=== PATIENT | female | born 1970 | race Caucasian/White ===

== ENCOUNTER 2017-03-08 15:46 | Observation (INO) | payer BC ==
[2017-03-08 15:46] VITALS: BMI 40.3
[2017-03-08] MEDS ORDERED: Sodium Chloride 0.9% 1,000 ML IV STA (16:37)
[2017-03-08 16:38] VITALS: TEMP 99.4
[2017-03-08] MEDS ORDERED: Morphine 2 mg/ml ISec IVP STA (16:39)
--- NOTE | 2017-03-08 16:45 | ED PDOC ---
Arrival/HPI - General Chief Complaint: GI Problem Time Seen by Provider: 03/08/17 16:02 Historian: Patient - History of Present Illness Narrative History of Present Illness (Text): 03/08/17 16:25 A 46 year old female, whose past medical history includes diabetes and hypertension, presents to the emergency department complaining of diarrhea, back pain and abdominal pain for the past 2 weeks. Patient also reports an episode of vomiting this morning and a fever of 101 last week. Patient denies any chest pain, runny nose, hematuria, dysuria or any other complaints at this time. Patient LMP was last week. Time/Duration: Other (2 weeks) Symptom Onset: Sudden Symptom Course: Unchanged Activities at Onset: Rest Context: Home Past Medical History - Provider Review Nursing Documentation Reviewed: Yes - Infectious Disease Hx of Infectious Diseases: None - Tetanus Immunization Tetanus Immunization: Unknown - Cardiac Hx Hypertension: Yes - Pulmonary Hx Respiratory Disorders: No Hx Tuberculosis: No - Neurological Hx Dizziness: Yes Hx Transient Ischemic Attacks (TIA): Yes - HEENT Hx HEENT Disorder: No Hx Macular Degeneration: No - Renal Hx Kidney Stones: Yes - Endocrine/Metabolic Hx Diabetes Mellitus Type 2: Yes - Hematological/Oncological Hx Blood Disorders: No Hx Unexplained Bleeding: No - Integumentary Hx Dermatological Disorder: No Hx Squamous Cell Carcinoma: No - Musculoskeletal/Rheumatological Hx Musculoskeletal Disorders: No Hx Falls: No Hx Unsteady Gait: No - Gastrointestinal Hx Gastrointestinal Disorders: No - Genitourinary/Gynecological Hx Genitourinary Disorders: No Hx Urinary Tract Infection: No - Psychiatric Hx Psychophysiologic Disorder: No Hx Sexual Abuse: No Hx Substance Use: No - Past Surgical History Past Surgical History: Unable to Obtain - Surgical History Hx Valve Replacement: No - Anesthesia Hx Anesthesia: Yes - Suicidal Assessment Feels Threatened In Home Enviroment: No Family/Social History - Physician Review Nursing Documentation Reviewed: Yes Family/Social History: No Known Family HX Smoking Status: Never Smoked Hx Alcohol Use: No Hx Substance Use: No Hx Substance Use Treatment: No Allergies/Home Meds Allergies/Adverse Reactions: Allergies No Known Allergies Allergy (Verified 03/08/17 15:56) Home Medications: Home Meds Medication Instructions Recorded Confirmed amLODIPine [Norvasc] 10 mg PO DAILY 06/02/15 03/08/17 MetFORMIN [glucoPHAGE] 500 mg PO BID 10/05/15 06/14/17 Review of Systems - Physician Review All systems were reviewed & negative as marked: Yes - Review of Systems Constitutional: Fevers ENT: absent: Rhinorrhea Cardiovascular: absent: Chest Pain Gastrointestinal: Abdominal Pain, Diarrhea, Vomiting Genitourinary Female: absent: Dysuria, Hematuria Musculoskeletal: Back Pain Physical Exam Vital Signs Reviewed: Yes Vital Signs Temp Pulse Resp BP Pulse Ox 03/08/17 21:05 81 14 152/76 H 98 03/08/17 19:20 78 16 144/80 99 03/08/17 17:18 89 18 152/79 H 98 03/08/17 16:30 99.4 F 97 H 18 155/88 H 98 03/08/17 15:57 99.8 F H 97 H 17 155/84 H 98 Temperature: Afebrile Blood Pressure: Hypertensive Pulse: Regular Respiratory Rate: Normal Appearance: Positive for: Well-Appearing, Non-Toxic, Comfortable Pain Distress: None Mental Status: Positive for: Alert and Oriented X 3 - Systems Exam Head: Present: Atraumatic, Normocephalic Pupils: Present: PERRL Extroacular Muscles: Present: EOMI Conjunctiva: Present: Normal Mouth: Present: Moist Mucous Membranes Neck: Present: Normal Range of Motion Respiratory/Chest: Present: Clear to Auscultation, Good Air Exchange. No: Respiratory Distress, Accessory Muscle Use Cardiovascular: Present: Regular Rate and Rhythm, Normal S1, S2. No: Murmurs Abdomen: Present: Tenderness (to palpation bilateral lower quadrants), Normal Bowel Sounds. No: Distention, Peritoneal Signs Back: Present: Normal Inspection Upper Extremity: Present: Normal Inspection. No: Cyanosis, Edema Lower Extremity: Present: Normal Inspection. No: Edema Neurological: Present: GCS=15, CN II-XII Intact, Speech Normal Skin: Present: Warm, Dry, Normal Color. No: Rashes Psychiatric: Present: Alert, Oriented x 3, Normal Insight, Normal Concentration Medical Decision Making ED Course and Treatment: 03/08/17 16:42 Impression: A 46 year old female with diarrhea, back pain and abdominal pain. Differential Diagnosis included but are not limited to: colitis vs. gastroenteritis vs. appendicitis vs. diverticulitis vs. urinary source Plan: -- EKG -- CT abd/pelvis -- chest xray -- labs -- Urinalysis -- Pepcid, Zofran, Toradol, IV fluids, Morphine -- Reassess and disposition Prior Visits: Notes and results from previous visits were reviewed. Patient last reported to the emergency department on 09/20/16 for evaluation of right breast abscess. Patient was admitted for UTI, hyperglycemia and breast abscess. Had abscess surgery here at [facility] [place]. Patient discharged on 09/23/16. - Lab Interpretations I have reviewed the lab results: Yes - EKG Interpretation Interpreted by ED Physician: Yes Type: 12 lead EKG - Medication Orders Current Medication Orders: Ceftriaxone Sodium (Rocephin 1 Gram Ivpb) 1 gm in 100 mls @ 200 mls/hr IV ONCE STA PRN Reason: Protocol Stop: 03/08/17 22:35 Discontinued Medications Famotidine (Pepcid) 20 mg IVP STAT STA Stop: 03/08/17 16:39 Last Admin: 03/08/17 16:53 Dose: 20 mg Sodium Chloride (Sodium Chloride 0.9%) 1,000 mls @ 999 mls/hr IV .Q1H1M STA Stop: 03/08/17 17:37 Last Admin: 03/08/17 16:51 Dose: 999 mls/hr Iohexol (Omnipaque 240 (50 Ml)) Confirm Administered Dose 50 ml .ROUTE .STK-MED ONE Stop: 03/08/17 18:41 Iohexol (Omnipaque 350 100 Ml) Confirm Administered Dose 350 mg .ROUTE .STK-MED ONE Stop: 03/08/17 18:41 Ketorolac Tromethamine (Toradol) 30 mg IVP STAT STA Stop: 03/08/17 16:39 Last Admin: 03/08/17 16:52 Dose: 30 mg Re-Assess: [facility] Pain Assessment Document 03/08/17 17:52 KEITH (Rec: 03/08/17 21:06 KEITH [id number]) Pain Reassessment Is this a pain reassessment? Yes Sleep Is patient sleeping during reassessment? No Presence of Pain Presence of Pain Yes Pain Scale Used Pain Scale Used Numeric Description Description Intermittent Intensity of Pain at present 4 Morphine Sulfate (Morphine) 2 mg IVP STAT STA Stop: 03/08/17 16:40 Last Admin: 03/08/17 16:52 Dose: 2 mg Ondansetron HCl (Zofran Inj) 4 mg IVP STAT STA Stop: 03/08/17 16:39 Last Admin: 03/08/17 16:52 Dose: 4 mg ED OBSERVATION Discharge: Yes Date of observation admission: 03/08/17 Time of observation admission: 16:25 - Observation admission statement Patient is being placed in observation because:: abdominal pain, back pain and diarrhea - Goals of Observation Goals of observation are:: to reevaluate and monitor patient symptoms - Progress Note Progress Note: 03/08/17 18:25 Patient is in no acute distress and reports feeling better. 03/08/17 20:20 Patient is resting. EKG: Ordered, reviewed, and independently interpreted the EKG. Rate : 83 BPM Rhythm : NSR Interpretation : Normal interval, normal axis, no ST/T changes Comparison : No previous EKG for comparison. Chest xray: No active disease. 03/08/17 21:35 CT results: IMPRESSION: 1. Facet arthropathy at L5-S1, left greater than right and degenerative changes with suggestion of sacroiliitis of the SI joints. 2. Borderline size of the ascending thoracic aorta measuring 40 mm. 3. Small nonobstructing right renal calculus in the lower pole. 4. Mildly enlarged fibroid uterus with several fibroids noted. 5. Right ovarian cyst measuring 3.4 cm 03/08/17 22:12 Patient's labs show poorly controlled diabetes but no DKA. Chemistry is othewise unremarkable. There is no leukocytosis. Urine suggests UTI. CT results are noted. I have discussed the results and plan with the patient, who expresses understanding. Patient given the opportunity to ask question, all questions were answered and there is agreement with the plan to discharge the patient home with prescription for macrobid for UTI and naprosyn for pain. Patient is stable for discharge. Patient was instructed to follow up with physician/clinic, especially to discuss all findings and results and to return if symptoms persist/worsen or new concerning symptoms arise. - Scribe Statement The provider has reviewed the documentation as recorded by the Morgan Castro Provider Rajendraibe Attestation: All medical record entries made by the Scribjeremiah were at my direction and personally dictated by me. I have reviewed the chart and agree that the record accurately reflects my personal performance of the history, physical exam, medical decision making, and the department course for this patient. I have also personally directed, reviewed, and agree with the discharge instructions and disposition. Disposition/Present on Arrival - Present on Arrival Any Indicators Present on Arrival: Yes History of DVT/PE: No History of Uncontrolled Diabetes: Yes Urinary Catheter: No History of Decub. Ulcer: No History Surgical Site Infection Following: Bariatric Surgery, None - Disposition Have Diagnosis and Disposition been Completed?: Yes Diagnosis: Uncontrolled diabetes mellitus, UTI (urinary tract infection), Uterine fibroid , Sacroiliitis Disposition: HOME/ ROUTINE Disposition Time: 16:02 Patient Plan: Discharge Patient Problems: Current Active Problems Problem Status Onset Sacroiliitis Acute UTI (urinary tract infection) Acute Uncontrolled diabetes mellitus Acute Uterine fibroid Acute Condition: GOOD
[2017-03-08 17:22] LABS: ADD MANUAL DIFF? NO
[2017-03-08 17:27] LABS: URINE BILIRUBIN NEGATIVE (NEGATIVE); URINE BLOOD TRACE-INTACT (NEGATIVE); URINE GLUCOSE (UA) 250 mg/dL (NEGATIVE); URINE KETONE NEGATIVE (NEGATIVE); URINE LEUKOCYTE ESTERASE TRACE Leu/uL (NEGATIVE); URINE PROTEIN TRACE mg/dL (<30 mg/dL); URINE UROBILINOGEN 0.2 E.U./dL (<1 E.U./dL)
[2017-03-08 17:31] LABS: BASO # 0.03 K/mm3 (0.0-2.0); BASO % 0.3 % (0.0-3.0); EOS # 0.1 (0.0-0.7); EOS % 0.8 % (1.5-5.0); GRAN % 68.9 % (50.0-68.0); HEMATOCRIT 34.1 % (36.0-48.0); LYMPH # 2.3 (1.2-3.4); LYMPH % 24.5 % (22.0-35.0); MEAN CELL VOLUME 82.4 fL (80.0-105.0); MONO # 0.5 (0.1-0.6); MONO % 5.5 % (1.0-6.0); PLATELET COUNT 340 10^3/uL (120.0-450.0); RED CELL DISTRIBUTION WIDTH 12.6 % (11.5-14.5); WHITE BLOOD COUNT 9.3 10^3/ul (4.5-11.0)
[2017-03-08 17:32] LABS: URINE APPEARANCE CLEAR (CLEAR); URINE COLOR LIGHT YELLOW (YELLOW)
[2017-03-08 17:51] LABS: INR 0.99 (0.93-1.08); PARTIAL THROMBOPLASTIN TIME 25.8 Seconds (23.7-30.8)
[2017-03-08 18:13] LABS: URINE WBC 15 - 20 /hpf (0-6)
[2017-03-08 18:14] LABS: URINE BACTERIA LARGE (NEG)
[2017-03-08 18:21] LABS: ALB/GLOB RATIO 0.9 (1.1-1.8); ALKALINE PHOSPHATASE 94 U/L (38-133); ALT/SGPT 25 U/L (7-56); AMYLASE 59 U/L (35-125); AST/SGOT 42 U/L (15-39); BILIRUBIN,TOTAL 0.4 mg/dL (0.2-1.3); BLOOD UREA NITROGEN 11 mg/dL (7-21); CALCIUM 9.1 mg/dL (8.4-10.5); CARBON DIOXIDE 29 mmol/L (21-33); CHLORIDE 101 mmol/L (98-107); GFR AFRICAN-AMERICAN > 60; LIPASE 30 U/L (23-300); POTASSIUM 3.6 mmol/L (3.6-5.0); SODIUM 138 mmol/L (132-148); TOTAL PROTEIN 7.9 g/dL (5.8-8.3)
[2017-03-08 18:26] LABS: GLUCOSE,RANDOM 352 mg/dL (70-110)
[2017-03-08] MEDS ORDERED: Iohexol 240 (50 ml) ONE (18:40)
[2017-03-08] MEDS ORDERED: Iohexol 350 MG/100 ML VIAL ONE (18:40)
[2017-03-08 18:42] LABS: TROPONIN I < 0.01 ng/mL
[2017-03-08 18:48] LABS: VENOUS BLOOD GAS BASE EXCESS 3.6 mmol/L (0.0-2.0); VENOUS BLOOD PH 7.33 (7.32-7.43)
--- NOTE | 2017-03-08 20:47 | CARD ---
APPROVED REPORT EKG Measurement Heart [id number] <Conclusion> Normal sinus rhythm Minimal voltage criteria for LVH, may be normal variant Possible Anterior infarct, age undetermined Abnormal ECG
[2017-03-08 21:06] VITALS: BP 152/76; PULSE 81
[2017-03-08] MEDS ORDERED: cefTRIAXone 1 gm 1 GM/100 ML BAG IV STA (22:06)
[2017-03-08 22:45] VITALS: RESP 16; O2SAT 99
--- NOTE | 2017-03-09 08:10 | CT ---
PROCEDURE: CT Abdomen and Pelvis with contrast HISTORY: Abdominal pain COMPARISON: 03/21/2016 TECHNIQUE: CT scan of the abdomen and pelvis was performed after intravenous administration of contrast. Oral contrast was administered. Coronal and sagittal reformatted images were obtained. Contrast dose: 96 mL Omnipaque 350 Radiation dose: Total exam DLP = 1280.94 mGy-cm. This CT exam was performed using one or more of the following dose reduction techniques: Automated exposure control, adjustment of the mA and/or kV according to patient size, and/or use of iterative reconstruction technique. FINDINGS: LOWER THORAX: The right lung base is clear. There is linear atelectasis/scarring in the left lung base. LIVER: The liver is normal in size. There is diffuse low-attenuation in the liver. No focal mass. No intrahepatic biliary ductal dilatation. GALLBLADDER AND BILE DUCTS: There are no calcified gallstones. PANCREAS: The pancreas is normal in size and there is homogeneous enhancement without ductal dilatation or focal mass. SPLEEN: The spleen is normal in size and there is homogeneous enhancement. ADRENALS: Both adrenal glands are normal in size without discrete nodule. KIDNEYS AND URETERS: Both kidneys are normal in size and there is homogeneous enhancement. There is a 4 mm nonobstructing stone in the lower pole of the right kidney. No hydronephrosis. There is a small simple cyst in the lower pole of the right kidney VASCULATURE: No aortic aneurysm. BOWEL: The small bowel loops are normal in caliber. The colon is unremarkable. APPENDIX: Normal appendix. PERITONEUM: Unremarkable. No free fluid. No free air. LYMPH NODES: Unremarkable. No enlarged lymph nodes. BLADDER: Unremarkable. REPRODUCTIVE: There is enlarged fibroid uterus. There is a 3.9 cm simple cyst in the right ovary. BONES: No acute fracture. There is bilateral sacroiliitis with periarticular sclerosis and vacuum phenomenon, right greater than left. OTHER FINDINGS: There is a small hiatal hernia. IMPRESSION: 1. Enlarged fibroid uterus. 2. 3.9 cm simple cyst in the right ovary. 3. 4 mm nonobstructing stone in the lower pole of the right kidney. A preliminary report was provided by [employer].
--- NOTE | 2017-03-09 09:30 | RAD ---
HISTORY: abd pain COMPARISON: 07/26/2016 TECHNIQUE: Chest PA and lateral FINDINGS: LUNGS: No active pulmonary disease. PLEURA: No significant pleural effusion identified. No pneumothorax apparent. CARDIOVASCULAR: Normal. OSSEOUS STRUCTURES: No significant abnormalities. VISUALIZED UPPER ABDOMEN: Normal. OTHER FINDINGS: None. IMPRESSION: No active disease.
== END 2017-03-08 22:27 | disposition home or self-care (01) ==
LOC: ED 15:46 → EROBSV 16:25
PROVIDERS: ADMIT Emergency Medicine; ATTEND Emergency Medicine
DX: N39.0 Urinary tract infection, site not specified (principal); M46.1 Sacroiliitis, not elsewhere classified; D25.9 Leiomyoma of uterus, unspecified; E11.65 Type 2 diabetes mellitus with hyperglycemia
CPT/HCPCS: 71020; 74177; 80053; 81001; 82150; 82550; 82803; 83615; 83690; 84484; 85025; 85610; 85730; 87086; 93005; 96361; 96374; 96375; 99285; G0378; J1885; J2270; J2405; J7040; Q9966; Q9967

== ENCOUNTER 2017-06-29 08:15 | Observation (INO) | payer BC ==
[2017-06-29 08:23] VITALS: BMI 38.7
--- NOTE | 2017-06-29 08:26 | ED PDOC ---
Arrival/HPI - General Chief Complaint: Chest Pain Time Seen by Provider: 06/29/17 08:23 Historian: Patient - History of Present Illness Narrative History of Present Illness (Text): 06/29/17 08:39 A 46 year old female, whose past medical history includes hyperglycemia, hypernatremia, tachycardia, TIA, hypokalemia, hypomagnesemia, and diabetes mellitus type 2, presents to the emergency department for chest pain that began 3 days ago. The patient states the pain feels like pressure and is non- exertional. The patient admits she is shortness of breath at baseline. The patient is concerned because she reports having an episode of left upper extremity numbness, which lasted for 1 hour, but resolved on its own. The patient denies any fever, cough, lightheadedness, abdominal pain, or any other complaints at this time. Time/Duration: < week (x 3 days ) Symptom Onset: Sudden Symptom Course: Unchanged Quality: Pressure Activities at Onset: Light Context: Home Past Medical History - Provider Review Nursing Documentation Reviewed: Yes - Infectious Disease Hx of Infectious Diseases: None - Tetanus Immunization Tetanus Immunization: Unknown - Reproductive Menopause: No - Cardiac Hx Hypertension: Yes - Pulmonary Hx Respiratory Disorders: No Hx Tuberculosis: No - Neurological Hx Dizziness: Yes Hx Transient Ischemic Attacks (TIA): Yes - HEENT Hx HEENT Disorder: No Hx Macular Degeneration: No - Renal Hx Kidney Stones: Yes - Endocrine/Metabolic Hx Diabetes Mellitus Type 2: Yes - Hematological/Oncological Hx Blood Disorders: No Hx Unexplained Bleeding: No - Integumentary Hx Dermatological Disorder: No Hx Squamous Cell Carcinoma: No - Musculoskeletal/Rheumatological Hx Musculoskeletal Disorders: No Hx Falls: No Hx Unsteady Gait: No - Gastrointestinal Hx Gastrointestinal Disorders: No - Genitourinary/Gynecological Hx Genitourinary Disorders: No Hx Urinary Tract Infection: No - Psychiatric Hx Psychophysiologic Disorder: No Hx Sexual Abuse: No Hx Substance Use: No - Past Surgical History Past Surgical History: Unable to Obtain - Surgical History Hx Valve Replacement: No - Anesthesia Hx Anesthesia: Yes - Suicidal Assessment Feels Threatened In Home Enviroment: No Family/Social History - Physician Review Nursing Documentation Reviewed: Yes Family/Social History: Unknown Family HX Smoking Status: Never Smoked Hx Alcohol Use: No Hx Substance Use: No Hx Substance Use Treatment: No Allergies/Home Meds Allergies/Adverse Reactions: Allergies No Known Allergies Allergy (Verified 06/29/17 15:59) Home Medications: Home Meds Medication Instructions Recorded Confirmed amLODIPine [Norvasc] 10 mg PO DAILY 06/02/15 06/29/17 MetFORMIN [glucoPHAGE] 500 mg PO BID 06/29/15 06/29/17 Physical Exam - Physical Exam Narrative Physical Exam (Text): 06/29/17 08:39 - Review of Systems Constitutional: Normal. absent: Fatigue, Weight Change, Fevers Eyes: Normal ENT: denies sore throat, denies tristhmus Respiratory: Normal. absent: SOB, Cough, Sputum Cardiovascular: Present: Chest Pain absent: Palpitations, Syncope Gastrointestinal: Normal. absent: Abdominal Pain, Diarrhea, Nausea, Vomiting Genitourinary: Normal. absent: Dysuria, Frequency, Hematuria Musculoskeletal: Normal. absent: Arthralgias, Back Pain, Neck Pain Skin: no rashes, no erythema Neurological: absent: Focal Weakness Endocrine: Normal Hemo/Lymphatic: Normal Psychiatric: No suicidal or homicidal ideations Physical exam Patient appears age appropriate in no distress, speaking full sentences without difficulty - Systems Exam Head: Present: Atraumatic, Normocephalic Pupils: Present: PERRL Extroacular Muscles: Present: EOMI Conjunctiva: Present: Normal Mouth: Present: Moist Mucous Membranes Neck: Present: Normal Range of Motion. No: MIDLINE TENDERNESS, Paraspinal Tenderness Respiratory/Chest: Present: Clear to Auscultation, Good Air Exchange. No: Respiratory Distress, Accessory Muscle Use, Tachypneic Cardiovascular: Present: Regular Rate and Rhythm, Normal S1, S2, Peripheal Pulses Present. No: Murmurs Abdomen: Present: Normal Bowel Sounds. No: Tenderness, Distention, Peritoneal Signs, Rebound, Guarding Back: Present: Normal Inspection. No: Midline Tenderness, Paraspinal Tenderness Upper Extremity: Present: Normal Inspection. No: Cyanosis, Edema Lower Extremity: Present: Normal Inspection. No: Edema Neurological: Present: GCS=15, Speech Normal, cranial nerves II through XII fully intact with no cerebellar abnormality, neurosensory fully intact. No focal neurological deficits. Skin: Present: Warm, Dry, Normal Color. No: Rashes Lymphatic: Present: OX3, NI, NC Psychiatric: Present: Alert, Oriented x 3, Normal Insight, Normal Concentration Vital Signs Reviewed: Yes Vital Signs Temp Pulse Resp BP Pulse Ox 06/29/17 14:27 82 16 133/93 H 97 06/29/17 12:23 85 16 138/91 H 97 06/29/17 10:30 80 18 142/90 97 06/29/17 08:21 98.2 F 96 H 16 159/98 H 97 Temperature: Afebrile Blood Pressure: Hypertensive Pulse: Tachycardic Respiratory Rate: Normal Appearance: Positive for: Well-Appearing, Non-Toxic, Comfortable Pain Distress: None Mental Status: Positive for: Alert and Oriented X 3 Medical Decision Making ED Course and Treatment: Impression: A 46 year old female with chest pain. Also had transient LUE numbness, currently asymptomatic. No focal neurological deficits on examination. Differential Diagnosis included but are not limited to: ACS, TIA Plan: -- EKG -- Head CT -- Chest X-ray -- Labs -- Reassess and disposition Prior Visits: Notes and results from previous visits were reviewed. Patient was last seen in the emergency department on 05/07/17 for chest pain. Patient was discharged home. Progress Notes: Previous records reviewed, patient was discharged on 05/07/17. Diagnosis was atypical chest pain, hypertension, dyslipidemia, type 2 diabetes, leukocytosis. Patient has been seen by cardiology, and her stress test was documented from which was negative with normal ejection fraction. 06/29/17 08:35 EKG: Ordered, reviewed, and independently interpreted the EKG. Rate : 97 BPM Rhythm : NSR Interpretation : No ST-segment elevations, normal intervals. Interpreted by me. Seen in the ER by Dr. Cabral, accepted to her service pt aware of and agree with plan 06/29/17 13:45 CT still pending for this reason ASA has not been given yet 06/29/17 14:[address] Maldonado IMPRESSION: Apparent low-attenuation area in the right insular cortex and basal ganglia could represent an age indeterminate infarction. If there is a persistent neurologic deficit and an ongoing clinical concern for ischemic insult, an MRI of the brain without intravenous contrast would be helpful for further characterization. Important findings were discussed with Dr. Toshia King on 06/29/2017 at 2: 35 p.m. 06/29/17 14:58 Dr. Cabral made aware that MRI brain is ordered, and that it needs f/u 06/29/2017 16:28 Brain MRI IMPRESSION: 1. No acute intracranial abnormality. Specifically, no evidence of acute infarction. 2. Multifocal subcortical supratentorial white matter changes are strictly nonspecific. The differential considerations include early chronic microangiopathic changes, gliosis, migraine headache effect, vaculitis, Lyme disease and demyelinating disease including multiple sclerosis. Clinical correlation and follow-up is advised. Dictator: Hattie Maldonado MD - Lab Interpretations Lab Results: 06/29/17 08:25 06/29/17 08:55 Lab Results 06/29/17 09:14: POC Glucose (mg/dL) 249 H 06/29/17 09:00: Blood Type Confirm O POSITIVE 06/29/17 08:55: Blood Type O POSITIVE, Antibody Screen Negative, BBK History Checked No verified bt 06/29/17 08:55: Hemoglobin A1c 12.4 H 06/29/17 08:55: Sodium 138, Potassium 3.6, Chloride 99, Carbon Dioxide 27, Anion Gap 16, BUN 17, Creatinine 0.8, Est GFR ( Amer) > 60, Est GFR (Non- Af Amer) > 60, Random Glucose 295 H, Calcium 9.7, Total Bilirubin 0.3, AST 18, ALT 13, Alkaline Phosphatase 99, Troponin I < 0.01, NT-Pro-B Natriuret Pep < 11.1, Total Protein 8.1, Albumin 3.9, Globulin 4.1, Albumin/Globulin Ratio 1.0 L , Triglycerides 162 H, Cholesterol 147, LDL Cholesterol Direct 85, HDL Cholesterol 29 06/29/17 08:25: PT 10.0, INR 0.93, APTT 22.6 L 06/29/17 08:25: WBC 9.2, RBC 4.48, Hgb 12.6, Hct 37.0, MCV 82.6, MCH 28.1, MCHC 34.1, RDW 12.8, Plt Count 325, MPV 10.5, Gran % 63.6, Lymph % (Auto) 29.3, Otoe % (Auto) 6.0, Eos % (Auto) 0.9 L, Baso % (Auto) 0.2, Gran # 5.85, Lymph # 2.7, Otoe # 0.6, Eos # 0.1, Baso # 0.02 - RAD Interpretation Radiology Orders: 06/29/17 08:32 CHEST PORTABLE [RAD] Stat 06/29/17 08:34 HEAD W/O CONTRAST [CT] Stat - Medication Orders Current Medication Orders: Amlodipine Besylate (Norvasc) 10 mg PO DAILY [facility] Last Admin: 06/29/17 14:27 Dose: 10 mg MAR Blood Pressure Document 06/29/17 14:27 [facility] (Rec: 06/29/17 14:27 [facility] [id number]) Blood Pressure Blood Pressure (100/60-150/90) 133/93 Aspirin (Ecotrin) 81 mg PO DAILY [facility] Last Admin: 06/29/17 14:25 Dose: 81 mg Glimepiride (Amaryl) 2 mg PO ACBD [facility] Metformin HCl (Glucophage) 500 mg PO BID ALONDRA Valsartan (Diovan) 320 mg PO DAILY [facility] Last Admin: 06/29/17 15:37 Dose: 320 mg Discontinued Medications Aspirin (Aspirin Chewable) 324 mg PO STAT STA Stop: 06/29/17 14:53 Last Admin: 06/29/17 15:28 Dose: NIHSS Scale ([place]) Time Performed: 13:48 - How Severe is the Stoke Baseline Level of Consciousness: 0=Alert LOC to Questions: 0=Both comments correct LOC to commands: 0=Obeys both correctly Best Gaze: 0=Normal Visual: 0=No visual loss Facial: 0=Normal Motor Arm - Left: 0=No drift Motor Arm - Right: 0=No drift Motor Leg - Left: 0=No drift Motor Leg - Right: 0=No drift Limb Ataxia: 0=Absent Sensory: 0=Normal Best Language: 0=No aphasia Dysarthia: 0=Normal articulation Extinction & Inattention (Neglect): 0=Normal, no object Score: 0 Risk Level: No Stroke Risk - Scribe Statement The provider has reviewed the documentation as recorded by the Morgan Pichardo Provider Scribe Attestation: All medical record entries made by the Scribjeremiah were at my direction and personally dictated by me. I have reviewed the chart and agree that the record accurately reflects my personal performance of the history, physical exam, medical decision making, and the department course for this patient. I have also personally directed, reviewed, and agree with the discharge instructions and disposition. Disposition/Present on Arrival - Present on Arrival Any Indicators Present on Arrival: No History of DVT/PE: No History of Uncontrolled Diabetes: Yes Urinary Catheter: No History of Decub. Ulcer: No History Surgical Site Infection Following: Bariatric Surgery, None - Disposition Have Diagnosis and Disposition been Completed?: Yes Diagnosis: TIA (transient ischemic attack), Chest pain Disposition: HOSPITALIZED Disposition Time: 14:51 Patient Plan: Observation Patient Problems: Current Active Problems Problem Status Onset Chest pain Acute TIA (transient ischemic attack) Acute Condition: FAIR
[2017-06-29 08:52] LABS: BASO # 0.02 K/mm3 (0.0-2.0); BASO % 0.2 % (0.0-3.0); EOS # 0.1 (0.0-0.7); EOS % 0.9 % (1.5-5.0); GRAN # 5.85 (1.4-6.5); GRAN % 63.6 % (50.0-68.0); LYMPH # 2.7 (1.2-3.4); LYMPH % 29.3 % (22.0-35.0); MEAN CELL VOLUME 82.6 fl (80.0-105.0); MEAN CORPUSCULAR HEMOGLOBIN 28.1 pg (25.0-35.0); MEAN CORPUSCULAR HGB CONC 34.1 g/dl (31.0-37.0); MEAN PLATELET VOLUME 10.5 fl (7.0-11.0); MONO # 0.6 (0.1-0.6); RED CELL DISTRIBUTION WIDTH 12.8 % (11.5-14.5); WHITE BLOOD COUNT 9.2 10^3/ul (4.5-11.0)
[2017-06-29 09:02] LABS: INR 0.93 (0.93-1.08); PARTIAL THROMBOPLASTIN TIME 22.6 Seconds (23.7-30.8)
[2017-06-29 09:22] LABS: ALKALINE PHOSPHATASE 99 U/L (38-126); ALT/SGPT 13 U/L (7-56); AST/SGOT 18 U/L (14-36); BILIRUBIN,TOTAL 0.3 mg/dL (0.2-1.3); BLOOD UREA NITROGEN 17 mg/dL (7-21); CALCIUM 9.7 mg/dL (8.4-10.5); CARBON DIOXIDE 27 mmol/L (21-33); CHLORIDE 99 mmol/L (98-107); CHOLESTEROL 147 mg/dL (130-200); GFR AFRICAN-AMERICAN > 60; GLUCOSE,RANDOM 295 mg/dL (70-110); POTASSIUM 3.6 mmol/L (3.6-5.0); SODIUM 138 mmol/L (132-148); TOTAL PROTEIN 8.1 g/dL (5.8-8.3)
[2017-06-29 09:33] LABS: TROPONIN I < 0.01 ng/mL
--- NOTE | 2017-06-29 14:40 | CT ---
PROCEDURE: CT HEAD WITHOUT CONTRAST. HISTORY: LUE numbness COMPARISON: 05/18/2016 and 06/02/2015. TECHNIQUE: Axial computed tomography images were obtained through the head/brain without intravenous contrast. Radiation dose: Total exam DLP = 941.65 mGy-cm. This CT exam was performed using one or more of the following dose reduction techniques: Automated exposure control, adjustment of the mA and/or kV according to patient size, and/or use of iterative reconstruction technique. FINDINGS: HEMORRHAGE: No intracranial hemorrhage. BRAIN: There is an asymmetric low-attenuation area in the right insular cortex and basal ganglia. (series 2, image 16). There is no mass, mass effect or abnormal extra-axial fluid collection. VENTRICLES: The ventricles are normal in size, shape and configuration. CALVARIUM: Unremarkable. PARANASAL SINUSES: Predominantly clear. MASTOID AIR CELLS: Predominantly clear. OTHER FINDINGS: None. IMPRESSION: Apparent low-attenuation area in the right insular cortex and basal ganglia could represent an age indeterminate infarction. If there is a persistent neurologic deficit and an ongoing clinical concern for ischemic insult, an MRI of the brain without intravenous contrast would be helpful for further characterization. Important findings were discussed with Dr. Toshia King on 06/29/2017 at 2:35 p.m.
--- NOTE | 2017-06-29 15:17 | RAD ---
HISTORY: cp COMPARISON: 03/08/2017 FINDINGS: LUNGS: No active pulmonary disease. PLEURA: No significant pleural effusion identified, no pneumothorax apparent. CARDIOVASCULAR: Normal. OSSEOUS STRUCTURES: No significant abnormalities. VISUALIZED UPPER ABDOMEN: Normal. OTHER FINDINGS: None. IMPRESSION: No active disease.
--- NOTE | 2017-06-29 16:30 | MRI ---
PROCEDURE: MRI BRAIN WITHOUT CONTRAST HISTORY: TIA COMPARISON: Noncontrast head CT performed earlier the same day TECHNIQUE: Multiplanar, multisequence MR images of the brain were obtained without intravenous contrast enhancement. FINDINGS: HEMORRHAGE: None DWI: No evidence of an acute or early subacute infarction. BRAIN PARENCHYMA: There are multiple T2/FLAIR hyperintense foci in the subcortical supratentorial white matter. There is no mass, mass effect or abnormal extra-axial fluid collection. There is no territorial infarction. VENTRICLES: The ventricles are normal in size, shape and configuration. CRANIUM: There is normal bone marrow signal pattern. ORBITS: Grossly unremarkable. PARANASAL SINUSES/MASTOIDS: Predominantly clear. VASCULAR SYSTEM: There are normal signal voids in the larger intracranial arteries. OTHER FINDINGS: None. IMPRESSION: 1. No acute intracranial abnormality. Specifically, no evidence of acute infarction. 2. Multifocal subcortical supratentorial white matter changes are strictly nonspecific. The differential considerations include early chronic microangiopathic changes, gliosis, migraine headache effect, vasculitis, Lyme disease and demyelinating disease including multiple sclerosis. Clinical correlation and follow-up is advised.
[2017-06-29] MEDS ORDERED: Pneumococcal 23-Valent Vaccine IM ONE (17:19)
--- NOTE | 2017-06-29 21:25 | CARD ---
APPROVED REPORT EKG Measurement Heart [id number] <Conclusion> Normal sinus rhythm Cannot rule out Anterior infarct, age undetermined Abnormal ECG
[2017-06-29] MEDS: Insulin Lispro (humaLOG) MEDIUM Coverage SC SCH (21:45)
--- NOTE | 2017-06-29 23:17 | HP ---
HISTORY OF PRESENT ILLNESS: The patient is a 46-year-old known to me from office practice, came to emergency room because of chest pain, radiating to the left arm and she actually had numbness in her left arm, so she got scarred, came to emergency room, thought she was having hear attack or stroke, so she came for further evaluation. The patient states, she was having similar symptoms for last 3 days intermittently and it is a pressure like, it has no relationship with the food intake. It is associated with left arm numbness and tingling that lasted for almost 10 hours and resolved on its own. There is no history of fever or chills. No cough. No congestion. No hemoptysis. No hematemesis. ALLERGIES: SHE IS NOT ALLERGIC TO ANY MEDICATION. MEDICATION AT HOME: The patient is not very complaint; however, she should be talking amlodipine 10 mg daily, valsartan 320 daily, metformin 500 twice a day, glimepiride 2 mg twice a day, and aspirin 81 daily. PAST MEDICAL HISTORY: Significant for uncontrolled diabetes. She has multiple admissions for breast abscess. She has incision and drainage done one time. She was in septic shock in 10/2014. SOCIAL HISTORY: She is single. Lives with her boyfriend. Denies smoking or drinking. PHYSICAL EXAMINATION GENERAL: She is awake and alert. Communicative. VITAL SIGNS: She is afebrile. Pulse 88, respirations 18, blood pressure 145/86. LUNGS: Bilateral fair air flow. No rhonchi or crackles. HEART: S1 and S2 audible. ABDOMEN: Soft, nontender. No rebound. No guarding. NEUROLOGICALLY: She is awake and alert, able to communicate. No focal deficit. Bilateral lung nodule. LABORATORY DATA: WBC 9.2, hemoglobin 12.6, hematocrit 37.0, platelet 325. PT 10, INR 0.93, PTT 22.6. Chemistry, sodium 138, potassium 3.6, chloride 99, CO2 27, BUN 17, creatinine 0.8, blood sugar 249. Hemoglobin A1c is 12.4. First troponin is negative. BNP is less than 11. Triglycerides 162, total cholesterol is 147, LDL is 85. Her x-ray chest is unremarkable. CT scan showed that there is a suspicion of basal ganglia infarct, but she has chronic microvascular disease. There is also questionable insular cortex attenuation, so the patient underwent MRI that is unremarkable for any acute stroke or hemorrhages. ASSESSMENT AND PLAN: 1. Chest akins, rule out coronary artery disease. The patient has multiple risk factors. 2. Morbid obesity. 3. Non-insulin dependent diabetes, poorly controlled. 4. Hypertension is controlled. 5. Morbid obesity. PLAN: The patient will be placed on observation. We will follow up serial cardiac enzyme. The patient was admitted with the almost similar complaint in 12/2015. She was advised to have a stress test done. She cannot recall if she had a stress test done, so we will follow up her cardiac enzymes. We will monitor her blood sugar. Cardiology evaluation by Dr. Diggs has been requested. Mina Cabral MD
[2017-06-30 06:48] LABS: ALKALINE PHOSPHATASE 102 U/L (38-126); ALT/SGPT 19 U/L (7-56); AST/SGOT 27 U/L (14-36); BILIRUBIN,TOTAL 0.6 mg/dL (0.2-1.3); BLOOD UREA NITROGEN 16 mg/dL (7-21); CALCIUM 9.8 mg/dL (8.4-10.5); CARBON DIOXIDE 30 mmol/L (21-33); CHLORIDE 96 mmol/L (95-110); GFR AFRICAN-AMERICAN > 60; GLUCOSE,RANDOM 252 mg/dL (70-110); POTASSIUM 3.7 mmol/L (3.6-5.0); SODIUM 139 mmol/L (132-148); TOTAL PROTEIN 8.4 g/dL (5.8-8.3)
[2017-06-30 08:09] LABS: TROPONIN I < 0.01 ng/mL
[2017-06-30] MEDS: Insulin Lispro (humaLOG) MEDIUM Coverage SC SCH ×4 (09:25→22:31)
--- NOTE | 2017-06-30 09:59 | CP.PCM.CON ---
<TkRadha - Last Filed: 06/30/17 09:51> History of Present Illness - History of Present Illness History of Present Illness: Neurology Consult Note for Macy Quesada PGY2 This is a 46Y F with PMH HTN, uncontrolled DM, breast abscess, TIA who came to ED for sudden chest pain and L arm numbness/tingling. The episode of numbness/ tingling lasted a few hours. The patient has had this symptoms before. She reports resting at the time. She states she has been having these symptoms intermittently. The numbness/tingling is located in the first 3 fingers of her L hand and is worse when is typing on the computer. At the time patient denies any headaches, weakness, vision changes or loss of consciousness. This am, she reports feeling better. She denies CP, SOB, n/v/d, numbness/tingling, fever or chills. MRI was noted to be negative for acute pathology. Patient had stress test in August 2016 which was normal. Carotid doppler 2 yrs ago showed 0-19% stenosis bilaterally. Cervical spine CT in 2014 was unremarkable. Patient denies having any trauma. PMH: HTN, uncontrolled DM, breast abscess, TIA PSH: I&D of breast abscess Home meds: As per MAR All: NKDA SH: Denies EtOH, drug or tobacco use Review of Systems - Review of Systems All systems: reviewed and no additional remarkable complaints except Review of Systems: + numbness/tingling Past Patient History - Infectious Disease Hx of Infectious Diseases: None - Tetanus Immunizations Tetanus Immunization: Unknown - Past Social History Smoking Status: Never Smoked Alcohol: None Drugs: Denies Home Situation {Lives}: With Family - CARDIAC Hx Cardiac Disorders: Yes Hx Hypertension: Yes - PULMONARY Hx Respiratory Disorders: No Hx Tuberculosis: No - NEUROLOGICAL Hx Neurological Disorder: Yes Hx Dizziness: Yes Hx Transient Ischemic Attacks (TIA): Yes - HEENT Hx HEENT Problems: No Hx Macular Degeneration: No - RENAL Hx Chronic Kidney Disease: Yes Hx Kidney Stones: Yes (PASSED IT) - ENDOCRINE/METABOLIC Hx Diabetes Mellitus Type 2: Yes - HEMATOLOGICAL/ONCOLOGICAL Hx Blood Disorders: No Hx Unexplained Bleeding: No - INTEGUMENTARY Hx Dermatological Problems: Yes (H/O BREAST ABSCESS) Hx Squamous Cell: No - MUSCULOSKELETAL/RHEUMATOLOGICAL Hx Musculoskeletal Disorders: No Hx Falls: No Hx Unsteady Gait: No - GASTROINTESTINAL Hx Gastrointestinal Disorders: No - GENITOURINARY/GYNECOLOGICAL Hx Genitourinary Disorders: Yes (FIBROID) Hx Urinary Tract Infection: Yes - PSYCHIATRIC Hx Psychophysiologic Disorder: No Hx Sexual Abuse: No Hx Substance Use: No - SURGICAL HISTORY Hx Surgeries: No Hx Valve Replacement: No - ANESTHESIA Hx Anesthesia: Yes Meds Allergies/Adverse Reactions: Allergies Allergy/AdvReac Type Severity Reaction Status Date / Time No Known Allergies Allergy Verified 06/29/17 15:59 - Medications Medications: Current Medications Acetaminophen (Tylenol 325mg Tab) 650 mg PO Q6H PRN PRN Reason: Fever >100.4 F Last Admin: 06/30/17 06:37 Dose: 650 mg Amlodipine Besylate (Norvasc) 10 mg PO DAILY [facility] Last Admin: 06/30/17 09:25 Dose: 10 mg Aspirin (Ecotrin) 81 mg PO DAILY [facility] Last Admin: 06/30/17 09:24 Dose: 81 mg Glimepiride (Amaryl) 2 mg PO ACBD [facility] Last Admin: 06/30/17 09:24 Dose: 2 mg Insulin Human Lispro (Humalog Med) 0 units SC ACHS [facility] PRN Reason: Protocol Last Admin: 06/30/17 09:25 Dose: 5 units Metformin HCl (Glucophage) 500 mg PO BID [facility] Last Admin: 06/30/17 09:24 Dose: 500 mg Valsartan (Diovan) 320 mg PO DAILY [facility] Last Admin: 06/30/17 09:24 Dose: 320 mg Physical Exam - Constitutional Appears: No Acute Distress - Head Exam Head Exam: ATRAUMATIC, NORMAL INSPECTION, NORMOCEPHALIC - Eye Exam Eye Exam: EOMI, Normal appearance, PERRL Pupil Exam: NORMAL ACCOMODATION, PERRL - ENT Exam ENT Exam: Mucous Membranes Moist - Respiratory Exam Respiratory Exam: Clear to Auscultation Bilateral, NORMAL BREATHING PATTERN. absent: Rales, Rhonchi, Wheezes - Cardiovascular Exam Cardiovascular Exam: REGULAR RHYTHM, +S1, +S2. absent: Gallop, Rubs, Systolic Murmur - GI/Abdominal Exam GI & Abdominal Exam: Normal Bowel Sounds, Soft. absent: Mass, Rebound, Rigid, Tenderness - Extremities Exam Extremities exam: Positive for: normal inspection. Negative for: calf tenderness, pedal edema - Neurological Exam Neurological exam: Alert, CN II-XII Intact, Oriented x3 Additional comments: + tinel's on L - Psychiatric Exam Psychiatric exam: Normal Affect, Normal Mood - Skin Skin Exam: Dry, Intact, Normal Color, Warm Results - Vital Signs Recent Vital Signs: Last Vital Signs Temp 98.0 F 06/30/17 06:00 Pulse 93 H 06/30/17 06:00 Resp 20 06/30/17 06:00 BP 125/80 06/30/17 09:25 Pulse Ox 97 06/30/17 06:00 - Labs Result Diagrams: 06/29/17 08:25 06/30/17 06:15 Labs: Laboratory Results - last 24 hr 06/29/17 06/29/17 06/30/17 20:46 21:14 06:15 Sodium 139 Potassium 3.7 Chloride 96 Carbon Dioxide 30 Anion Gap 17 BUN 16 Creatinine 0.8 Est GFR ( Amer) > 60 Est GFR (Non-Af Amer) > 60 POC Glucose (mg/dL) 288 H Random Glucose 252 H Calcium 9.8 Total Bilirubin 0.6 AST 27 ALT 19 Alkaline Phosphatase 102 Lactate Dehydrogenase Total Creatine Kinase Troponin I < 0.01 Total Protein 8.4 H Albumin 4.2 Globulin 4.2 Albumin/Globulin Ratio 1.0 L TSH 3rd Generation 06/30/17 06/30/17 07:41 07:41 Sodium Potassium Chloride Carbon Dioxide Anion Gap BUN Creatinine Est GFR ( Amer) Est GFR (Non-Af Amer) POC Glucose (mg/dL) Random Glucose Calcium Total Bilirubin AST ALT Alkaline Phosphatase Lactate Dehydrogenase 323 L Total Creatine Kinase 54 Troponin I < 0.01 Total Protein Albumin Globulin Albumin/Globulin Ratio TSH 3rd Generation 1.22 Assessment & Plan - Assessment and Plan (Free Text) Assessment: This is a 46Y F with PMH HTN, uncontrolled DM, breast abscess, TIA who came to ED for sudden chest pain and L arm numbness/tingling. Head CT showed low attenuation in R insular cortex and basal ganglia. MRI showed no acute intracranial abnormality and some multifocal subcortical supratentorial non- specific white matter changes. HgbA1c noted to be 12. Numbness/tingling can be secondary to carpal tunnel versus diabetic neuropathy versus vasospasm due to medication noncompliance and uncontrolled risk factors. TIA is unlikely. Plan: - Will order Carotid doppler - Diabetic education - Maintain euglyemia (140-180s) - Recommend to follow up with Dr. Cedillo outpatient EMG for L 1st-3rd finger numbness Thank you for this consultation. Will sign off at this time. Please re-consult if needed. Case seen, discussed and reviewed with attending, Dr. Cedillo. Macy Frey PGY2 - Date & Time Date: 06/30/17 Time: 10:08 <José Luis Cedillo - Last Filed: 06/30/17 13:12> Meds - Medications Medications: Current Medications Acetaminophen (Tylenol 325mg Tab) 650 mg PO Q6H PRN PRN Reason: Fever >100.4 F Last Admin: 06/30/17 06:37 Dose: 650 mg Amlodipine Besylate (Norvasc) 10 mg PO DAILY [facility] Last Admin: 06/30/17 09:25 Dose: 10 mg Aspirin (Ecotrin) 81 mg PO DAILY [facility] Last Admin: 06/30/17 09:24 Dose: 81 mg Glimepiride (Amaryl) 2 mg PO ACBD [facility] Last Admin: 06/30/17 09:24 Dose: 2 mg Insulin Human Lispro (Humalog Med) 0 units SC ACHS [facility] PRN Reason: Protocol Last Admin: 06/30/17 12:42 Dose: 5 units Metformin HCl (Glucophage) 500 mg PO BID [facility] Last Admin: 06/30/17 09:24 Dose: 500 mg Valsartan (Diovan) 320 mg PO DAILY [facility] Last Admin: 06/30/17 09:24 Dose: 320 mg Results - Vital Signs Recent Vital Signs: Last Vital Signs Temp 98 F 06/30/17 11:58 Pulse 75 06/30/17 11:58 Resp 18 06/30/17 11:58 BP 131/84 06/30/17 11:58 Pulse Ox 97 06/30/17 06:00 - Labs Result Diagrams: 06/29/17 08:25 06/30/17 06:15 Labs: Laboratory Results - last 24 hr 06/29/17 06/29/17 06/30/17 20:46 21:14 06:15 Sodium 139 Potassium 3.7 Chloride 96 Carbon Dioxide 30 Anion Gap 17 BUN 16 Creatinine 0.8 Est GFR ( Amer) > 60 Est GFR (Non-Af Amer) > 60 POC Glucose (mg/dL) 288 H Random Glucose 252 H Calcium 9.8 Total Bilirubin 0.6 AST 27 ALT 19 Alkaline Phosphatase 102 Lactate Dehydrogenase Total Creatine Kinase Troponin I < 0.01 Total Protein 8.4 H Albumin 4.2 Globulin 4.2 Albumin/Globulin Ratio 1.0 L TSH 3rd Generation 06/30/17 06/30/17 06/30/17 07:21 07:41 07:41 Sodium Potassium Chloride Carbon Dioxide Anion Gap BUN Creatinine Est GFR ( Amer) Est GFR (Non-Af Amer) POC Glucose (mg/dL) 264 H Random Glucose Calcium Total Bilirubin AST ALT Alkaline Phosphatase Lactate Dehydrogenase 323 L Total Creatine Kinase 54 Troponin I < 0.01 Total Protein Albumin Globulin Albumin/Globulin Ratio TSH 3rd Generation 1.22 Attending/Attestation - Attestation I have personally seen and examined this patient.: Yes I have fully participated in the care of the patient.: Yes I have reviewed all pertinent clinical information: Yes
[2017-06-30] MEDS ORDERED: Naproxen 275 mg Tab PO STA (11:21)
[2017-06-30 11:58] VITALS: TEMP 98
[2017-06-30] MEDS ORDERED: Oxycodone/Acetaminophen 5/325 mg Tab PO STA (12:17)
--- NOTE | 2017-06-30 16:01 | DS ---
HISTORY OF PRESENT ILLNESS: The patient is 46 years old, seen and examined, still has chest pain, complains of headache, complains of left hand numbness. No nausea or vomiting. No diarrhea. No fever. No chills. PHYSICAL EXAMINATION: VITAL SIGNS: She is afebrile. Pulse 75, respirations 18, blood pressure 131/84. LUNGS: Bilateral fair airflow. No rhonchi or crackle. HEART: S1 and S2, audible. ABDOMEN: Soft, nontender. No rebound. No guarding. NEUROLOGIC: The patient is awake and alert. Able to communicate. Complaint of left hand numbness. Bilateral leg no edema. LABORATORY DATA: WBC 9.2, hemoglobin 12.3, hematocrit 37, platelet 325. Chemistry: Her blood sugar is 64, LDH is 323. MRI of the brain is negative. Carotid Doppler is pending. X-ray chest is unremarkable. ASSESSMENT: 1. Noncardiac chest pain. She had a stress test done last year, was unremarkable. 2. Poorly controlled diabetes. 3. Obesity. 4. Hypertension. 5. Probably carpal tunnel syndrome versus cervical radiculopathy. PLAN: So, plan is to give her one stat dose of Naprosyn. If there is no improvement, we will give her Percocet. Once her headache and left shoulder pain is gone, she will be discharged home later on today. She is advised to follow with me. She is advised to follow with Dr. José Luis Cedillo as an outpatient to have EMG done and she should follow up in office in a week or two. Mina Cabral MD
[2017-06-30] MEDS ORDERED: Apap-Butalbital-Caffeine 325-50-40mg Tab PO ONE (17:19)
--- NOTE | 2017-06-30 19:55 | CON ---
DATE OF SERVICE: 06/30/2017 REASON FOR CONSULTATION: Cardiac evaluation for chest pain. BRIEF CLINICAL HISTORY: This is a 46-year-old morbidly obese female, body mass index of 39 kg/m2, diabetes, hypertension, hyperlipidemia, came in with complaint of chest pain, says the patient has chest pain off and on for 3 days now and tenderness on the touch. Yesterday, the patient felt numbness, got scared and thought he was getting heart attack or a stroke, so came to the emergency room, denies any palpitation. PAST MEDICAL HISTORY: Significant for diabetes, hypertension, hyperlipidemia, and obesity. SOCIAL HISTORY: Denies smoking, denies any history of alcohol abuse. FAMILY HISTORY: Significant for coronary artery disease, father had a coronary artery bypass surgery at 55. ALLERGIES: NO KNOWN DRUG ALLERGIES. CURRENT MEDICATIONS: The patient is taking at home amlodipine 10 mg daily, valsartan 320 mg, metformin 500 mg daily, glimepiride 2 mg daily, aspirin 81 mg daily. PREVIOUS CARDIAC WORKUP: The patient had echocardiography on 07/28/2016 that showed normal chamber size, ejection fraction 65% to 70%, mild AR, trace MR, [id number] tricuspid regurgitation, RV systolic pressure of 32. The patient had a stress test on 08/25/2016, normal SPECT myocardial perfusion study, ejection fraction of 75%. REVIEW OF SYSTEMS: As per HPI. PHYSICAL EXAMINATION: GENERAL: Height of the patient is 5 feet 6 inches, weight of the patient 240 pounds, body mass 38.7 kg/m2. VITAL SIGNS: Temperature afebrile, heart rate 88, blood pressure 117/77. HEENT: PERRLA. Extraocular muscles intact. NECK: Supple. No carotid bruits or thyromegaly. CHEST: Clear to auscultation. HEART: S1 and S2 regular. ABDOMEN: Soft. EXTREMITIES: Clubbing and cyanosis negative. LABORATORY DATA: WBC 9.9, hemoglobin 12.6, hematocrit 37, platelet count 325. Chemistry shows sodium 139, potassium 3.7, chloride 96, carbon dioxide 30, anion gap of 17, BUN 16, creatinine 0.7. EKG showed normal sinus, poor RR progression, chest tenderness on the left side of the chest. IMPRESSION: Atypical chest pain, tenderness on the chest. EKG is pretty benign, morbid obesity, diabetes, hypertension, hyperlipidemia. RECOMMENDATIONS: We will add on troponin one more, if the patient, on the day of chest pain is positive, troponin should be positive; if the troponin remains flat, we can discontinue telemetry. The patient had stress test and echo in July, essentially negative. No further cardiac workup is planned, but continue aggressive treatment of diabetes, hypertension, and hyperlipidemia. The patient had hemoglobin A1c of 12.4 which suggests very poorly controlled diabetes. Lifestyle modification, risk factors for coronary artery disease are recommended. Thank you Dr. Cabral for providing the opportunity in taking care of Greg Stewart. Kirk Reyes MD
--- NOTE | 2017-06-30 20:02 | US ---
PROCEDURE: Bilateral carotid artery duplex ultrasound HISTORY: Carotid stenosis TIA PHYSICIAN(S): Pb Rivero MD. TECHNIQUE: Duplex sonography and color-flow Doppler were used to evaluate the carotid bifurcations and limited segments of the vertebral arteries bilaterally. The exam is limited by body habitus. FINDINGS: There is mild smooth hypoechoic plaque noted at the carotid bifurcations bilaterally. The peak systolic velocity in the proximal right internal carotid artery is 88 cm/sec. This corresponds to a 20 to 39% proximal right ICA stenosis. Normal systolic velocities are noted in the proximal right external carotid artery. There is antegrade flow in the right vertebral artery. The peak systolic velocity in the proximal left internal carotid artery is 73 cm/sec. This corresponds to a 20 to 39% proximal left ICA stenosis. Normal systolic velocities are noted in the proximal left external carotid artery. There is antegrade flow in the left vertebral artery. IMPRESSION: 1. Bilateral 20-39% proximal ICA stenoses. 2. Antegrade flow in both vertebral arteries.
[2017-07-01] MEDS: Insulin Lispro (humaLOG) MEDIUM Coverage SC SCH ×2 (08:01→11:49)
[2017-07-01 10:20] VITALS: BP 124/84
[2017-07-01 10:23] VITALS: PULSE 94; RESP 20; O2SAT 95
--- NOTE | 2017-07-01 12:05 | DS ---
HISTORY OF PRESENT ILLNESS: The patient is 46 years old female, seen and examined, still complaint of headache; did respond to Fioricet and does not have any blurry vision; complaint of dizzy at times. Chest pain seems to be improving. No history of nausea or vomiting. The patient is very noncompliant. Does not follow her appointment in the office either. PHYSICAL EXAMINATION: GENERAL: Today, she is awake, alert, oriented, and communicative. VITAL SIGNS: She is afebrile, pulse 94, respirations 20, and blood pressure 124/84. LUNGS: Bilateral fair airflow. No rhonchi or crackle. HEART: S1 and S2 audible. ABDOMEN: Soft, obese and nontender. No rebound. No guarding. NEUROLOGIC: She is awake, alert, oriented. No sensory motor deficit. Moves all extremities. LABORATORY DATA: Her Blood sugar is 192. ASSESSMENT: 1. Chest pain, noncardiac. 2. Morbid obesity. 3. Hypertension. 4. [id number] diabetes. Workup so far done is MRI of the brain that is unremarkable. CT scan of the head is unremarkable. Carotid Doppler, there is no significant stenosis. PLAN: The patient is advised to follow up in office. I will readjust her diabetes medication. The patient is not very compliant because she states metformin gives her diarrhea; I advised her to cut down metformin to 500 twice a day instead of 1000 and glimepiride from 2 mg to 4 mg twice a day. She is given prescription of Fioricet to be used as needed, and she is advised to follow up with Dr. Diggs to have stress test as an outpatient and she will follow up with Dr. Cedillo for EMG. She might need cervical MRI to rule out cervical radiculopathy that can be done as an outpatient. The patient is hemodynamically stable to be discharged today. Mina Cabral MD
[2017-07-01] MEDS ORDERED: Apap-Butalbital-Caffeine 325-50-40mg Tab PO SCH (14:00)
== END 2017-07-01 14:32 | disposition home or self-care (01) ==
LOC: ED 08:15 → ERH 14:52 → 2RNO 18:08 → 3RNO 06-30 18:38
PROVIDERS: ADMIT Internal Medicine; ATTEND Internal Medicine
DX: R07.89 Other chest pain (principal); E66.01 Morbid (severe) obesity due to excess calories; I12.9 Hypertensive chronic kidney disease with stage 1 through stage 4 chronic kidney disease, or unspecified chronic kidney disease; N18.9 Chronic kidney disease, unspecified; E11.22 Type 2 diabetes mellitus with diabetic chronic kidney disease; E11.65 Type 2 diabetes mellitus with hyperglycemia; E78.5 Hyperlipidemia, unspecified; Z68.39 Body mass index [BMI] 39.0-39.9, adult; Z79.84 Long term (current) use of oral hypoglycemic drugs; Z79.899 Other long term (current) drug therapy; Z86.73 Personal history of transient ischemic attack (TIA), and cerebral infarction without residual deficits; Z87.440 Personal history of urinary (tract) infections; Z87.442 Personal history of urinary calculi; Z91.19 Patient's noncompliance with other medical treatment and regimen; G56.00 Carpal tunnel syndrome, unspecified upper limb; M54.12 Radiculopathy, cervical region; E11.40 Type 2 diabetes mellitus with diabetic neuropathy, unspecified
CPT/HCPCS: 36415; 70450; 70551; 71010; 80053; 80061; 82550; 82948; 83036; 83615; 83880; 84443; 84484; 85025; 85610; 85730; 86850; 86900; 93005; 93880; 97116; 97162; 99285; G0378; G8978; G8979

== ENCOUNTER 2017-07-31 10:34 | Inpatient (IN) | payer BC ==
[2017-07-31] MEDS ORDERED: Oxycodone/Acetaminophen 5/325 mg Tab PO STA ×2 (11:12→16:25)
--- NOTE | 2017-07-31 11:31 | ED PDOC ---
Arrival/HPI - General Chief Complaint: Abnormal Skin Integrity Time Seen by Provider: 07/31/17 11:10 Historian: Patient - History of Present Illness Narrative History of Present Illness (Text): 07/31/17 11:31 A 46 year old female, whose past medical history includes septic shock (2014) and diabetes, presents to the emergency department complaining of abscess under right breast and back pain for the past two days. Patient reports she noticed the abscess two days ago, increasing in size after applying warm compresses. Reports prior abscess surgeries by Dr. Soto under left and right breasts. Notes a fever yesterday but denies any or other complaints at this time. Time/Duration: Other (2 days) Symptom Onset: Sudden Symptom Course: Unchanged Activities at Onset: Rest Context: Home Past Medical History - Provider Review Nursing Documentation Reviewed: Yes - Infectious Disease Hx of Infectious Diseases: None - Tetanus Immunization Tetanus Immunization: Unknown - Cardiac Hx Cardiac Disorders: Yes Hx Hypertension: Yes - Pulmonary Hx Respiratory Disorders: No Hx Tuberculosis: No - Neurological Hx Neurological Disorder: Yes Hx Dizziness: Yes Hx Transient Ischemic Attacks (TIA): Yes - HEENT Hx HEENT Disorder: No Hx Macular Degeneration: No - Renal Hx Renal Disorder: Yes Hx Kidney Stones: Yes (PASSED IT) - Endocrine/Metabolic Hx Endocrine Disorders: Yes Hx Diabetes Mellitus Type 2: Yes - Hematological/Oncological Hx Blood Disorders: No Hx Unexplained Bleeding: No - Integumentary Hx Dermatological Disorder: Yes (H/O BREAST ABSCESS) Hx Squamous Cell Carcinoma: No - Musculoskeletal/Rheumatological Hx Musculoskeletal Disorders: No Hx Falls: No Hx Unsteady Gait: No - Gastrointestinal Hx Gastrointestinal Disorders: No - Genitourinary/Gynecological Hx Genitourinary Disorders: Yes (FIBROID) Hx Urinary Tract Infection: Yes - Psychiatric Hx Psychophysiologic Disorder: No Hx Sexual Abuse: No Hx Substance Use: No - Past Surgical History Past Surgical History: Unable to Obtain - Surgical History Hx Valve Replacement: No - Anesthesia Hx Anesthesia: Yes - Suicidal Assessment Feels Threatened In Home Enviroment: No Family/Social History - Physician Review Nursing Documentation Reviewed: Yes Family/Social History: No Known Family HX Smoking Status: Never Smoked Hx Alcohol Use: No Hx Substance Use: No Hx Substance Use Treatment: No Allergies/Home Meds Allergies/Adverse Reactions: Allergies No Known Allergies Allergy (Verified 07/31/17 11:01) Home Medications: Home Meds Medication Instructions Recorded Confirmed amLODIPine [Norvasc] 10 mg PO DAILY 06/02/15 07/31/17 MetFORMIN [glucoPHAGE] 500 mg PO BID 06/29/15 07/31/17 Glimepiride 0 mg PO BID 07/31/17 07/31/17 Valsartan [Diovan] 0 mg PO DAILY 07/31/17 07/31/17 Review of Systems - Physician Review All systems were reviewed & negative as marked: Yes - Review of Systems Constitutional: Fevers Musculoskeletal: Back Pain Skin: Abscess (under right breast) Physical Exam Vital Signs Reviewed: Yes Vital Signs Temp Pulse Resp BP Pulse Ox 07/31/17 16:12 93 H 18 125/72 97 07/31/17 13:06 87 18 133/72 99 07/31/17 11:01 99.6 F 105 H 17 145/82 98 Temperature: Afebrile Blood Pressure: Normal Pulse: Tachycardic Respiratory Rate: Normal Appearance: Positive for: Well-Appearing, Non-Toxic, Comfortable Pain Distress: None Mental Status: Positive for: Alert and Oriented X 3 - Systems Exam Head: Present: Atraumatic, Normocephalic Pupils: Present: PERRL Extroacular Muscles: Present: EOMI Conjunctiva: Present: Normal Mouth: Present: Moist Mucous Membranes Neck: Present: Normal Range of Motion Respiratory/Chest: Present: Clear to Auscultation, Good Air Exchange. No: Respiratory Distress, Accessory Muscle Use Cardiovascular: Present: Regular Rate and Rhythm, Normal S1, S2. No: Murmurs Abdomen: Present: Normal Bowel Sounds. No: Tenderness, Distention, Peritoneal Signs Back: Present: Normal Inspection Upper Extremity: Present: Normal Inspection. No: Cyanosis, Edema Lower Extremity: Present: Normal Inspection. No: Edema Neurological: Present: GCS=15, CN II-XII Intact, Speech Normal Skin: Present: Abscess (small, nonfluctuant abscess right breast, inferior aspect) Psychiatric: Present: Alert, Oriented x 3, Normal Insight, Normal Concentration Medical Decision Making ED Course and Treatment: 07/31/17 11:29 Impression: A 46 year old female with abscess under right breast and back pain. Plan: -- labs -- Percocet Prior visits: Previous records were reviewed. Patient last reported to the emergency department on 06/29/17 for evaluation of chest pain. Progress Notes: 07/31/17 13:30 [address]. Soto was called. 07/31/17 14:[address] Soto, who recommends right breast US. 07/31/17 15:27 Targeted ultrasound right breast Creator : Gil Cash MD FINDINGS: Anatomic area of interest 07-2010 o'clock. Cutaneous and subcutaneous edema. Irregular fluid collection at the site of clinical findings and pain. This measures 1.6 x 3.5 x 9.8 cm. Internal debris identified, peripheral hypervascularity noted. IMPRESSION: Fluid collection/abscess corresponding to findings on physical examination right breast. 07/31/17 16:33 US results discussed with Dr. Soto, who recommends patient to be admitted. 07/31/17 16:34 PMD, Dr. Cabral, was paged. - Lab Interpretations Lab Results: 07/31/17 11:11 07/31/17 11:11 Lab Results 07/31/17 14:04: POC Glucose (mg/dL) 318 H 07/31/17 11:11: Sodium 137, Potassium 3.5 L, Chloride 96 L, Carbon Dioxide 29, Anion Gap 16, BUN 12, Creatinine 0.8, Est GFR ( Amer) > 60, Est GFR (Non- Af Amer) > 60, Random Glucose 409 H* D, Calcium 10.0, Total Bilirubin 0.6, AST 19, ALT 20, Alkaline Phosphatase 124, Total Protein 8.7 H, Albumin 4.2, Globulin 4.5, Albumin/Globulin Ratio 0.9 L 07/31/17 11:11: WBC 11.7 H D, RBC 4.23, Hgb 11.9 L, Hct 34.7 L, MCV 82.0, MCH 28.1, MCHC 34.3, RDW 12.4, Plt Count 312, MPV 10.2, Gran % 77.2 H, Lymph % (Auto ) 17.6 L, Owen % (Auto) 4.7, Eos % (Auto) 0.3 L, Baso % (Auto) 0.2, Gran # 9.00 H, Lymph # 2.1, Owen # 0.6, Eos # 0.0, Baso # 0.02 I have reviewed the lab results: Yes - RAD Interpretation Radiology Orders: 07/31/17 14:44 BREAST LIMITED RT [US] Stat - Medication Orders Current Medication Orders: Amlodipine Besylate (Norvasc) 10 mg PO DAILY ALONDRA Ampicillin Sodium/Sulbactam (Sodium 3 gm/ Sodium Chloride) 100 mls @ 100 mls/ hr IVPB STAT STA PRN Reason: Protocol Stop: 07/31/17 17:33 Last Admin: 07/31/17 16:54 Dose: 100 mls/hr eMAR Start Stop Document 07/31/17 16:54 GMD (Rec: 07/31/17 16:54 GMD [id number] Intravenous Solution Start Date 07/31/17 Start Time 16:54 End Date 07/31/17 End time 17:54 Total Infusion Time 60 Discontinued Medications Sodium Chloride (Sodium Chloride 0.9%) 1,000 mls @ 999 mls/hr IV .Q1H1M STA Stop: 07/31/17 13:01 Last Admin: 07/31/17 12:02 Dose: 999 mls/hr eMAR Start Stop Document 07/31/17 12:02 GMD (Rec: 07/31/17 12:03 GMD [id number]) Intravenous Solution Start Date 07/31/17 Start Time 12:02 End Date 07/31/17 End time 13:03 Total Infusion Time 61 Oxycodone/Acetaminophen (Percocet 5/325 Mg Tab) 1 tab PO STAT STA Stop: 07/31/17 11:13 Last Admin: 07/31/17 11:26 Dose: 1 tab MAR Pain Assessment Document 07/31/17 11:26 GMD (Rec: 07/31/17 11:26 GMD [id number][facility] Pain Reassessment Is this a pain reassessment? No Sleep Is patient sleeping during reassessment? No Presence of Pain Presence of Pain Yes Location Left, Right or Bilateral Right Pain Location Body Site Breast Description Intensity of Pain at present 8 Oxycodone/Acetaminophen (Percocet 5/325 Mg Tab) 1 tab PO STAT STA Stop: 07/31/17 16:26 Last Admin: 07/31/17 16:50 Dose: 1 tab MAR Pain Assessment Document 07/31/17 16:50 GMD (Rec: 07/31/17 16:51 GMD [id number]) Pain Reassessment Is this a pain reassessment? No Sleep Is patient sleeping during reassessment? No Presence of Pain Presence of Pain Yes Trimethoprim/Sulfamethoxazole (Bactrim Ds Tab) 1 tab PO STAT STA PRN Reason: Protocol Stop: 07/31/17 16:09 Last Admin: 07/31/17 16:23 Dose: 1 tab - Scribe Statement The provider has reviewed the documentation as recorded by the Rajendraibjeremiah Castro All medical record entries made by the Rajendraibjeremiah were at my direction and personally dictated by me. I have reviewed the chart and agree that the record accurately reflects my personal performance of the history, physical exam, medical decision making, and the department course for this patient. I have also personally directed, reviewed, and agree with the discharge instructions and disposition. Disposition/Present on Arrival - Present on Arrival History of DVT/PE: No History of Uncontrolled Diabetes: Yes Urinary Catheter: No History of Decub. Ulcer: No History Surgical Site Infection Following: None - Disposition Referrals: PCP,NO [Non-Staff] - Follow up with primary Forms: [employer] (Polish)
[2017-07-31 11:36] LABS: BASO # 0.02 K/mm3 (0.0-2.0); BASO % 0.2 % (0.0-3.0); EOS % 0.3 % (1.5-5.0); GRAN % 77.2 % (50.0-68.0); HEMATOCRIT 34.7 % (36.0-48.0); LYMPH # 2.1 (1.2-3.4); LYMPH % 17.6 % (22.0-35.0); MEAN CORPUSCULAR HEMOGLOBIN 28.1 pg (25.0-35.0); MEAN CORPUSCULAR HGB CONC 34.3 g/dl (31.0-37.0); MEAN PLATELET VOLUME 10.2 fl (7.0-11.0); MONO # 0.6 (0.1-0.6); MONO % 4.7 % (1.0-6.0); RED CELL DISTRIBUTION WIDTH 12.4 % (11.5-14.5); WHITE BLOOD COUNT 11.7 10^3/ul (4.5-11.0)
[2017-07-31 11:47] LABS: ALB/GLOB RATIO 0.9 (1.1-1.8); ALKALINE PHOSPHATASE 124 U/L (38-126); ALT/SGPT 20 U/L (7-56); AST/SGOT 19 U/L (14-36); BILIRUBIN,TOTAL 0.6 mg/dL (0.2-1.3); BLOOD UREA NITROGEN 12 mg/dL (7-21); CARBON DIOXIDE 29 mmol/L (21-33); CHLORIDE 96 mmol/L (98-107); GFR AFRICAN-AMERICAN > 60; POTASSIUM 3.5 mmol/L (3.6-5.0); SODIUM 137 mmol/L (132-148); TOTAL PROTEIN 8.7 g/dL (5.8-8.3)
[2017-07-31 11:56] LABS: GLUCOSE,RANDOM 409 mg/dL (70-110)
[2017-07-31] MEDS ORDERED: Sodium Chloride 0.9% 1,000 ML IV STA (12:01)
--- NOTE | 2017-07-31 15:25 | US ---
PROCEDURE: Targeted ultrasound right breast. Relevant medical history: Prior abscess right breast, 3 months ago HISTORY: r/o abscess in right breast area COMPARISON: Bold TECHNIQUE: Standard protocol for this study/examination. FINDINGS: Anatomic area of interest 07-2010 o'clock. Cutaneous and subcutaneous edema. Irregular fluid collection at the site of clinical findings and pain. This measures 1.6 x 3.5 x 9.8 cm. Internal debris identified, peripheral hypervascularity noted. IMPRESSION: Fluid collection/abscess corresponding to findings on physical examination right breast.
[2017-07-31] MEDS ORDERED: Tmp-Smz 800 mg-160 mg DS Tab PO STA (16:08)
[2017-07-31] MEDS ORDERED: Ampicillin/Sulbactam 3 GM in Sodium Chloride 0.9% 100 ML IVPB STA (16:34)
--- NOTE | 2017-07-31 18:52 | CP.PCM.CON ---
<Kristy Granda - Last Filed: 07/31/17 19:05> History of Present Illness - History of Present Illness History of Present Illness: General Surgery Consult for Dr. Hoyt-Kristy Granda, PGY-1 Pt S & E at bedside. 46F w/PMH sig for recurrent bilat breast abscesses requiring I & D evaluated for Right lateral breast pain x 3 days. Pt reports onset of pain described as sharp/cramping, constant, non radiating, that worsened/area enlarged over past 2 days with warm compresses to area. Pain aggravated by touch. Tried Aleve without relief, no alleviating factors identified. Pt reports having similar episodes prior in bilat breasts requiring I & D. Admits to fevers (Tmax 101 at home), chills, nausea, poor appetite, diarrhea and back pain with onset of breast pain. Denies changes in bladder habits, recent illness, other complaints. In ED- breast U/S w/fluid collection/abscess of R breast with Leukocytosis. PMH: DM, HTN, last mammogram 2015-neg, no hx breast CA PSH: I & D of bilat breasts, last done 08/2016- R breast All: NKDA SH: Denies ETOH, tobacco, or illicit drug use PMD: Per[place]en Review of Systems - Review of Systems All systems: reviewed and no additional remarkable complaints except - Constitutional Constitutional: Chills, Fever - EENT Eyes: absent: Change in Vision Ears: Dizziness Nose/Mouth/Throat: absent: Sore Throat - Breasts Breasts: Mass (R lateral breast), Pain. absent: Nipple Discharge, Nipple Inversion, Skin Changes - Cardiovascular Cardiovascular: absent: Chest Pain - Respiratory Respiratory: absent: Cough - Gastrointestinal Gastrointestinal: Diarrhea, Nausea. absent: Abdominal Pain, Vomiting - Genitourinary Genitourinary: absent: Change in Urinary Stream, Dysuria - Musculoskeletal Musculoskeletal: Back Pain - Neurological Neurological: absent: Weakness - Psychiatric Psychiatric: Change in Appetite (decreased) Past Patient History - Infectious Disease Hx of Infectious Diseases: None - Tetanus Immunizations Tetanus Immunization: Unknown - Past Social History Smoking Status: Never Smoked - CARDIAC Hx Cardiac Disorders: Yes Hx Hypertension: Yes - PULMONARY Hx Respiratory Disorders: No Hx Tuberculosis: No - NEUROLOGICAL Hx Neurological Disorder: Yes Hx Dizziness: Yes Hx Transient Ischemic Attacks (TIA): Yes - HEENT Hx HEENT Problems: No Hx Macular Degeneration: No - RENAL Hx Chronic Kidney Disease: Yes Hx Kidney Stones: Yes (PASSED IT) - ENDOCRINE/METABOLIC Hx Endocrine Disorders: Yes Hx Diabetes Mellitus Type 2: Yes - HEMATOLOGICAL/ONCOLOGICAL Hx Blood Disorders: No Hx Unexplained Bleeding: No - INTEGUMENTARY Hx Dermatological Problems: Yes (H/O BREAST ABSCESS) Hx Squamous Cell: No - MUSCULOSKELETAL/RHEUMATOLOGICAL Hx Musculoskeletal Disorders: No Hx Falls: No Hx Unsteady Gait: No - GASTROINTESTINAL Hx Gastrointestinal Disorders: No - GENITOURINARY/GYNECOLOGICAL Hx Genitourinary Disorders: Yes (FIBROID) Hx Urinary Tract Infection: Yes - PSYCHIATRIC Hx Psychophysiologic Disorder: No Hx Sexual Abuse: No Hx Substance Use: No - SURGICAL HISTORY Hx Valve Replacement: No - ANESTHESIA Hx Anesthesia: Yes Meds Allergies/Adverse Reactions: Allergies Allergy/AdvReac Type Severity Reaction Status Date / Time No Known Allergies Allergy Verified 07/31/17 11:01 - Medications Medications: Current Medications Amlodipine Besylate (Norvasc) 10 mg PO DAILY [facility] Aspirin (Ecotrin) 81 mg PO DAILY ALONDRA Glimepiride (Amaryl) 4 mg PO BID ALONDRA Vancomycin HCl (Vancomycin 1gm) 1 gm in 250 mls @ 167 mls/hr IVPB Q12H ALONDRA PRN Reason: Protocol Piperacillin Sod/Tazobactam Sod (Zosyn 3.375 In Ns 100ml) 100 mls @ 200 mls/hr IVPB Q8 ALONDRA PRN Reason: Protocol Stop: 08/01/17 06:29 Insulin Human Lispro (Humalog High) 0 units SC ACHS ALONDRA PRN Reason: Protocol Metformin HCl (Glucophage) 500 mg PO BID ALONDRA Valsartan (Diovan) 320 mg PO DAILY [facility] Physical Exam - Constitutional Appears: Non-toxic, No Acute Distress - Head Exam Head Exam: ATRAUMATIC, NORMAL INSPECTION, NORMOCEPHALIC - Eye Exam Eye Exam: EOMI, Normal appearance - ENT Exam ENT Exam: Mucous Membranes Moist, Normal Exam - Neck Exam Neck exam: Positive for: Full Rom, Normal Inspection - Respiratory Exam Respiratory Exam: Clear to Auscultation Bilateral, NORMAL BREATHING PATTERN - Cardiovascular Exam Cardiovascular Exam: REGULAR RHYTHM, +S1, +S2 - GI/Abdominal Exam GI & Abdominal Exam: Normal Bowel Sounds, Soft. absent: Distended (obese), Tenderness - Extremities Exam Extremities exam: Positive for: normal inspection. Negative for: pedal edema - Neurological Exam Neurological exam: Alert, CN II-XII Intact, Oriented x3 - Psychiatric Exam Psychiatric exam: Normal Affect, Normal Mood - Skin Skin Exam: Intact, Normal Color, Warm - Expanded Skin Exam Expanded Type of lesion: Abscess Distribution of rash: Chest ( breast) Description of Rash: Fluctuant (R lateral breast), Tenderness (R lateral breast , severe) Results - Vital Signs Recent Vital Signs: Last Vital Signs Temp 99.6 F 07/31/17 11:01 Pulse 95 H 07/31/17 18:09 Resp 18 07/31/17 18:09 BP 119/72 07/31/17 18:09 Pulse Ox 99 07/31/17 18:09 - Labs Result Diagrams: 07/31/17 11:11 07/31/17 11:11 Labs: Laboratory Results - last 24 hr 07/31/17 18:38 POC Glucose (mg/dL) 292 H Assessment & Plan - Assessment and Plan (Free Text) Assessment: 46F w/R breast abscess Plan: Warm compresses to area Pain control Abx NPO after MN FU AM labs FU EKG/CXR Further recs as per Dr. Lai Granda, PGY-4 - Date & Time Date: 07/31/17 Time: 18:57 <Nitin Hoyt - Last Filed: 08/05/17 07:58> Meds - Medications Medications: Current Medications Amlodipine Besylate (Norvasc) 10 mg PO DAILY [facility] Last Admin: 08/04/17 10:17 Dose: 10 mg Aspirin (Ecotrin) 81 mg PO DAILY [facility] Last Admin: 08/04/17 10:22 Dose: Not Given Glimepiride (Amaryl) 4 mg PO BID [facility] Last Admin: 08/04/17 17:11 Dose: 4 mg Hydromorphone HCl (Dilaudid) 1 mg IVP Q4H PRN PRN Reason: Pain, moderate (4-7) Last Admin: 08/04/17 11:20 Dose: 1 mg Vancomycin HCl (Vancomycin 1gm) 1 gm in 250 mls @ 167 mls/hr IVPB Q12H ALONDRA PRN Reason: Protocol Last Admin: 08/05/17 05:50 Dose: Not Given Piperacillin Sod/Tazobactam Sod (Zosyn 3.375 In Ns 100ml) 100 mls @ 200 mls/hr IVPB Q8 ALONDRA PRN Reason: Protocol Stop: 08/07/17 22:01 Last Admin: 08/05/17 05:50 Dose: Not Given Insulin Detemir (Levemir) 25 unit SC HS [facility] Last Admin: 08/04/17 22:08 Dose: 25 unit Insulin Human Lispro (Humalog High) 0 units SC ACHS ALONDRA PRN Reason: Protocol Last Admin: 08/04/17 22:02 Dose: Not Given Metformin HCl (Glucophage) 500 mg PO BID [facility] Last Admin: 08/04/17 17:11 Dose: 500 mg Morphine Sulfate (Morphine) 4 mg IVP Q6H PRN PRN Reason: Pain, severe (8-10) Last Admin: 08/01/17 18:42 Dose: 4 mg Ondansetron HCl (Zofran Inj) 4 mg IVP Q6H PRN PRN Reason: Nausea/Vomiting Last Admin: 08/04/17 17:17 Dose: 4 mg Valsartan (Diovan) 320 mg PO DAILY [facility] Last Admin: 08/04/17 10:16 Dose: 320 mg Results - Vital Signs Recent Vital Signs: Last Vital Signs Temp 97.8 F 08/05/17 06:00 Pulse 94 H 08/05/17 06:00 Resp 20 08/05/17 06:00 BP 143/86 08/05/17 06:00 Pulse Ox 98 08/05/17 06:00 - Labs Result Diagrams: 08/04/17 10:32 08/02/17 06:30 Labs: Laboratory Results - last 24 hr 08/04/17 08/04/17 08/04/17 10:32 11:06 16:12 WBC 11.0 D RBC 3.00 L Hgb 8.2 L Hct 25.3 L MCV 84.3 MCH 27.3 MCHC 32.4 RDW 12.9 Plt Count 268 MPV 9.9 POC Glucose (mg/dL) 239 H 242 H 08/04/17 08/05/17 21:13 07:22 WBC RBC Hgb Hct MCV MCH MCHC RDW Plt Count MPV POC Glucose (mg/dL) 243 H 143 H Assessment & Plan - Assessment and Plan (Free Text) Plan: Patient was seen and examined by me. I agree with assessment and plan as per resident's note.
[2017-07-31] MEDS: Vancomycin 1gm in NS 250ml 1 GM/250 ML BAG IVPB SCH (20:29)
[2017-07-31] MEDS: Insulin Lispro (HUMAlog) HIGH Coverage SC SCH (22:04)
--- NOTE | 2017-07-31 22:35 | HP ---
HISTORY OF PRESENT ILLNESS: The patient is a 46-year-old, known to me from multiple previous admission, came to emergency room because of pain and swelling with feeling lump under right breast, complaining of back pain for the last 3-4 days. She started to apply warm compresses, but in the last 2 days, she noticed the lump has gotten bigger, so she came to emergency room for further evaluation. The patient does state that she had some chills yesterday and low-grade fevers. No nausea or vomiting. No diarrhea. She did notice that her blood sugar number has gotten up higher. PAST MEDICAL HISTORY: 1. Significant for noninsulin-dependent diabetes. 2. Hypertension. 3. Hyperlipidemia. 4. History of septic shock because of sepsis in 2015. 5. History of renal failure in the past that has completely resolved. ALLERGIES: SHE IS NOT ALLERGIC TO ANY MEDICATION. MEDICATION AT HOME: She is on valsartan 320 daily, metformin 500 twice a day, glimepiride 4 mg twice a day, amlodipine 10 mg daily, aspirin 81 daily. SOCIAL HISTORY: She lives with her boyfriend. She is working. Denies smoking or drinking. REVIEW OF SYSTEMS: Significant for pain in the right breast. PHYSICAL EXAMINATION: GENERAL: She is awake, alert, oriented, communicative. VITAL SIGNS: She is afebrile, she has temperature of 99.6, pulse 95, respirations 17, blood pressure 119/72. LUNGS: Bilateral fair airflow. No rhonchi or crackle. HEART: S1 and S2 audible. ABDOMEN: Soft, obese. Nontender. No rebound. No guarding. BREASTS: Right breast has lump under the breast, tender to touch with erythema. LABORATORY DATA: WBC is 11.7, hemoglobin 11.9, hematocrit 34.7, platelet of 312. Chemistry: Sodium 137, potassium 3.5, chloride 96, CO2 of 29, BUN 12, creatinine 0.8, blood sugar of 318. DIAGNOSTIC STUDIES: She had breast ultrasound done that shows a fluid collection or abscess at the site of clinical finding that measures 1.6 x 3.5 x 9.8 cm with internal debris and peripheral hypervascularity. ASSESSMENT: 1. Right breast abscess. 2. Noninsulin-dependent diabetes. 3. Hypertension. 4. Hyperlipidemia. PLAN: Currently, the patient received Unasyn. Her kidney function is fine. I will start her on vancomycin and Zosyn. Monitor her blood sugar. Dr. Hoyt and Dr. Mcclain for consult. We will follow up this patient in a.m. Mina Cabral MD
[2017-07-31] MEDS: Piperacillin/Tazobact 3.375 gm 100 ML IVPB SCH (23:20)
[2017-08-01 00:51] VITALS: BMI 41.6
[2017-08-01] MEDS: Morphine 5 MG/ML SYRINGE IVP PRN ×2 (05:33→18:42)
[2017-08-01] MEDS: Piperacillin/Tazobact 3.375 gm 100 ML IVPB SCH ×3 (05:33→22:19)
[2017-08-01] MEDS: Vancomycin 1gm in NS 250ml 1 GM/250 ML BAG IVPB SCH ×2 (06:14→18:02)
[2017-08-01 06:30] LABS: BASO # 0.02 K/mm3 (0.0-2.0); BASO % 0.2 % (0.0-3.0); EOS # 0.1 (0.0-0.7); EOS % 0.7 % (1.5-5.0); GRAN # 6.64 (1.4-6.5); GRAN % 69.2 % (50.0-68.0); HEMATOCRIT 32.4 % (36.0-48.0); LYMPH # 2.3 (1.2-3.4); LYMPH % 24.2 % (22.0-35.0); MEAN CELL VOLUME 83.3 fl (80.0-105.0); MEAN CORPUSCULAR HEMOGLOBIN 27.5 pg (25.0-35.0); MEAN PLATELET VOLUME 10.2 fl (7.0-11.0); MONO # 0.6 (0.1-0.6); MONO % 5.7 % (1.0-6.0); RED CELL DISTRIBUTION WIDTH 12.8 % (11.5-14.5); WHITE BLOOD COUNT 9.6 10^3/ul (4.5-11.0)
[2017-08-01 06:41] LABS: INR 1.15 (0.93-1.08)
[2017-08-01 07:20] LABS: BLOOD UREA NITROGEN 10 mg/dL (7-21); CALCIUM 9.3 mg/dL (8.4-10.5); CARBON DIOXIDE 29 mmol/L (21-33); CHLORIDE 101 mmol/L (98-107); GFR AFRICAN-AMERICAN > 60; GLUCOSE,RANDOM 295 mg/dL (70-110); POTASSIUM 3.7 mmol/L (3.6-5.0); SODIUM 138 mmol/L (132-148)
--- NOTE | 2017-08-01 08:08 | RAD ---
PROCEDURE: CHEST RADIOGRAPH, 1 VIEW HISTORY: cardiac eval COMPARISON: 06/29/2017 FINDINGS: LUNGS: Clear. PLEURA: No pneumothorax or pleural fluid seen. CARDIOVASCULAR: Normal. OSSEOUS STRUCTURES: No significant abnormalities. VISUALIZED UPPER ABDOMEN: Normal. OTHER FINDINGS: None. IMPRESSION: No active disease.
[2017-08-01] MEDS: Insulin Lispro (HUMAlog) HIGH Coverage SC SCH ×4 (09:07→22:30)
--- NOTE | 2017-08-01 11:07 | CARD ---
APPROVED REPORT EKG Measurement Heart [id number] <Conclusion> Normal sinus rhythm Poor RR Progression Q wave in II, avf possible Sptal q wave. Abnormal ECG
[2017-08-01] MEDS: Sodium Chloride 0.45% 1,000 ML IV SCH (12:07)
--- NOTE | 2017-08-01 12:20 | CP.PCM.CON ---
History of Present Illness - History of Present Illness History of Present Illness: 46 year old female with PMH of recurrent breast abscess bilaterally, morbid obesity with BMI 42, DM, HTN came in to [facility] complaining of right breast pain for the past 3-4 days. She noted some indurated area on the inferolateral portion of the right abscess for the past 2 days. No note of drainage or bleeding, no specific trauma to the area, no skin rash, no animal contacts, no swimming, no contact with soil. She had subjective fever and chills as well, but denies headache or dizziness, no chest pain, no SOB, no abdominal pain, no diarrhea, no dysuria. Infectiosu diseases consult is requested to further evaluate and manage. Review of Systems - Review of Systems All systems: reviewed and no additional remarkable complaints except (as per HPI ) Past Patient History - Infectious Disease Hx of Infectious Diseases: None - Tetanus Immunizations Tetanus Immunization: Unknown - Past Social History Smoking Status: Never Smoked - CARDIAC Hx Cardiac Disorders: Yes Hx Hypertension: Yes - PULMONARY Hx Respiratory Disorders: No Hx Tuberculosis: No - NEUROLOGICAL Hx Neurological Disorder: Yes Hx Dizziness: Yes Hx Transient Ischemic Attacks (TIA): Yes - HEENT Hx HEENT Problems: No Hx Macular Degeneration: No - RENAL Hx Chronic Kidney Disease: Yes Hx Kidney Stones: Yes (PASSED IT) - ENDOCRINE/METABOLIC Hx Endocrine Disorders: Yes Hx Diabetes Mellitus Type 2: Yes - HEMATOLOGICAL/ONCOLOGICAL Hx Blood Disorders: No Hx Unexplained Bleeding: No - INTEGUMENTARY Hx Dermatological Problems: Yes (H/O BREAST ABSCESS) Hx Squamous Cell: No - MUSCULOSKELETAL/RHEUMATOLOGICAL Hx Musculoskeletal Disorders: No Hx Falls: No Hx Unsteady Gait: No - GASTROINTESTINAL Hx Gastrointestinal Disorders: No - GENITOURINARY/GYNECOLOGICAL Hx Genitourinary Disorders: Yes (FIBROID) Hx Urinary Tract Infection: Yes - PSYCHIATRIC Hx Psychophysiologic Disorder: No Hx Sexual Abuse: No - SURGICAL HISTORY Hx Surgeries: Yes Hx Valve Replacement: No Other/Comment: I& D both breasts - ANESTHESIA Hx Anesthesia: Yes Meds Allergies/Adverse Reactions: Allergies Allergy/AdvReac Type Severity Reaction Status Date / Time No Known Allergies Allergy Verified 07/31/17 11:01 - Medications Medications: Current Medications Amlodipine Besylate (Norvasc) 10 mg PO DAILY [facility] Aspirin (Ecotrin) 81 mg PO DAILY [facility] Glimepiride (Amaryl) 4 mg PO BID [facility] Vancomycin HCl (Vancomycin 1gm) 1 gm in 250 mls @ 167 mls/hr IVPB Q12H [facility] PRN Reason: Protocol Last Admin: 07/31/17 20:29 Dose: 167 mls/hr Piperacillin Sod/Tazobactam Sod (Zosyn 3.375 In Ns 100ml) 100 mls @ 200 mls/hr IVPB Q8 [facility] PRN Reason: Protocol Stop: 08/01/17 06:29 Insulin Human Lispro (Humalog High) 0 units SC ACHS [facility] PRN Reason: Protocol Metformin HCl (Glucophage) 500 mg PO BID [facility] Morphine Sulfate (Morphine) 4 mg IVP Q6H PRN PRN Reason: Pain, severe (8-10) Ondansetron HCl (Zofran Inj) 4 mg IVP Q6H PRN PRN Reason: Nausea/Vomiting Valsartan (Diovan) 320 mg PO DAILY [facility] Physical Exam - Constitutional Appears: Non-toxic, No Acute Distress - Head Exam Head Exam: NORMAL INSPECTION - ENT Exam ENT Exam: Mucous Membranes Moist - Neck Exam Neck exam: Negative for: Lymphadenopathy, Meningismus - Respiratory Exam Respiratory Exam: Decreased Breath Sounds. absent: Rales Additional comments: right inferolateral part of the breast with indurated, tender area - Cardiovascular Exam Cardiovascular Exam: +S1, +S2 - GI/Abdominal Exam GI & Abdominal Exam: Soft. absent: Tenderness Results - Vital Signs Recent Vital Signs: Last Vital Signs Temp 98.9 F 07/31/17 19:03 Pulse 90 07/31/17 19:03 Resp 18 07/31/17 19:03 BP 134/84 07/31/17 19:03 Pulse Ox 99 07/31/17 18:09 - Labs Result Diagrams: 08/01/17 05:45 08/01/17 05:45 Labs: Laboratory Results - last 24 hr 07/31/17 07/31/17 18:38 21:33 POC Glucose (mg/dL) 292 H 341 H Assessment & Plan - Assessment and Plan (Free Text) Plan: Assessment Sepsis due to right sided breast abscess history of recurrent breast abscess bilaterally morbid obesity with BMI 42 DM HTN Plan Started the patient on Vancomycin and Zosyn pending blood cx; awaiting plan of surgery and will await wound cx / abscess cx will monitor clinically
[2017-08-02] MEDS: Piperacillin/Tazobact 3.375 gm 100 ML IVPB SCH ×2 (05:40→15:55)
[2017-08-02] MEDS: Vancomycin 1gm in NS 250ml 1 GM/250 ML BAG IVPB SCH ×2 (06:44→17:47)
[2017-08-02 07:14] LABS: BASO # 0.02 K/mm3 (0.0-2.0); BASO % 0.2 % (0.0-3.0); EOS # 0.1 (0.0-0.7); EOS % 0.7 % (1.5-5.0); GRAN # 7.88 (1.4-6.5); GRAN % 75.2 % (50.0-68.0); HEMATOCRIT 31.5 % (36.0-48.0); LYMPH % 18.7 % (22.0-35.0); MEAN CELL VOLUME 83.1 fl (80.0-105.0); MEAN CORPUSCULAR HEMOGLOBIN 27.4 pg (25.0-35.0); MONO # 0.6 (0.1-0.6); MONO % 5.2 % (1.0-6.0); RED CELL DISTRIBUTION WIDTH 12.7 % (11.5-14.5); WHITE BLOOD COUNT 10.5 10^3/ul (4.5-11.0)
[2017-08-02 07:23] LABS: ALB/GLOB RATIO 0.9 (1.1-1.8); ALKALINE PHOSPHATASE 87 U/L (38-126); ALT/SGPT 24 U/L (7-56); AST/SGOT 15 U/L (14-36); BILIRUBIN,TOTAL 0.5 mg/dL (0.2-1.3); BLOOD UREA NITROGEN 9 mg/dL (7-21); CALCIUM 8.8 mg/dL (8.4-10.5); CARBON DIOXIDE 28 mmol/L (21-33); CHLORIDE 102 mmol/L (98-107); GFR AFRICAN-AMERICAN > 60; GLUCOSE,RANDOM 291 mg/dL (70-110); POTASSIUM 3.6 mmol/L (3.6-5.0); SODIUM 139 mmol/L (132-148); TOTAL PROTEIN 7.4 g/dL (5.8-8.3)
--- NOTE | 2017-08-02 08:54 | PN ---
DATE: 08/01/2017 SUBJECTIVE: The patient is 46 years old, seen and examined, lying in bed, complaining of feeling hungry since she is n.p.o. for the procedure this afternoon. PHYSICAL EXAMINATION: VITAL SIGNS: She is afebrile, pulse 82, respirations 20, blood pressure 127/80. LUNGS: Bilateral fair airflow. No rhonchi or crackles. HEART: S1 and S2 audible. ABDOMEN: Soft, nontender. No rebound. No guarding. NEUROLOGIC: The patient is awake, alert, oriented, communicative. A lump on the underside of the right breast. EXTREMITIES: Bilateral legs, no edema. LABORATORY DATA: WBC is 9.6, hemoglobin 10.7, hematocrit 32.4, platelets 291. PT 12.7, INR 1.15. Sodium 138, potassium 3.7, chloride 101, CO2 of 29, BUN 10, creatinine 0.8, blood sugar is 217. ASSESSMENT: 1. Right chest abscess. 2. Oeb-ljmqukd-sdxjqacol diabetes. 3. Hypertension. 4. Morbid obesity. PLAN: We will start the patient on IV fluids, monitor blood sugar. The patient is for I and D in the OR today afternoon. We will follow up her CBC and CMP in a.m. Mina Cabral MD
[2017-08-02] MEDS: Insulin Lispro (HUMAlog) HIGH Coverage SC SCH ×3 (09:08→17:00)
--- NOTE | 2017-08-02 17:13 | CP.PCM.PN ---
Subjective - Date & Time of Evaluation Date of Evaluation: 08/02/17 Time of Evaluation: 11:10 - Subjective Subjective: Patient is for I and D today, still with pain in the right breast, no fevers overnight. Objective - Vital Signs/Intake and Output Vital Signs (last 24 hours): Temp Pulse Resp BP Pulse Ox 99.6 F 95 H 20 123/79 98 08/02/17 05:31 08/02/17 05:31 08/02/17 05:31 08/02/17 05:31 08/02/17 05:31 Intake and Output: 08/02/17 08/02/17 06:59 18:59 Intake Total 540 240 Balance 540 240 - Medications Medications: Current Medications Amlodipine Besylate (Norvasc) 10 mg PO DAILY [facility] Last Admin: 08/01/17 10:25 Dose: 10 mg Aspirin (Ecotrin) 81 mg PO DAILY [facility] Last Admin: 08/01/17 10:25 Dose: 81 mg Glimepiride (Amaryl) 4 mg PO BID [facility] Last Admin: 08/01/17 17:11 Dose: Not Given Vancomycin HCl (Vancomycin 1gm) 1 gm in 250 mls @ 167 mls/hr IVPB Q12H [facility] PRN Reason: Protocol Last Admin: 08/02/17 06:44 Dose: 167 mls/hr Piperacillin Sod/Tazobactam Sod (Zosyn 3.375 In Ns 100ml) 100 mls @ 200 mls/hr IVPB Q8 [facility] PRN Reason: Protocol Stop: 08/07/17 22:01 Last Admin: 08/02/17 05:40 Dose: 200 mls/hr Sodium Chloride (Sodium Chloride 0.45%) 1,000 mls @ 75 mls/hr IV .[id number] [facility] Last Admin: 08/01/17 12:07 Dose: 75 mls/hr Insulin Human Lispro (Humalog High) 0 units SC ACHS [facility] PRN Reason: Protocol Last Admin: 08/02/17 09:08 Dose: 7 units Metformin HCl (Glucophage) 500 mg PO BID [facility] Last Admin: 08/01/17 17:11 Dose: Not Given Morphine Sulfate (Morphine) 4 mg IVP Q6H PRN PRN Reason: Pain, severe (8-10) Last Admin: 08/01/17 18:42 Dose: 4 mg Ondansetron HCl (Zofran Inj) 4 mg IVP Q6H PRN PRN Reason: Nausea/Vomiting Last Admin: 08/01/17 17:55 Dose: 4 mg Valsartan (Diovan) 320 mg PO DAILY [facility] Last Admin: 08/01/17 10:24 Dose: 320 mg - Labs Labs: 08/02/17 06:30 08/02/17 06:30 PT 12.7 SECONDS (9.4-12.5) H 08/01/17 05:45 INR 1.15 (0.93-1.08) H 08/01/17 05:45 APTT 24.0 Seconds (25.1-36.5) L 08/01/17 05:45 - Constitutional Appears: Non-toxic, No Acute Distress - Head Exam Head Exam: NORMAL INSPECTION - Neck Exam Neck Exam: absent: Meningismus - Respiratory Exam Respiratory Exam: Decreased Breath Sounds - Cardiovascular Exam Cardiovascular Exam: +S1, +S2 - GI/Abdominal Exam GI & Abdominal Exam: Soft. absent: Tenderness Assessment and Plan - Assessment and Plan (Free Text) Plan: Assessment Sepsis due to right sided breast abscess history of recurrent breast abscess bilaterally morbid obesity with BMI 42 DM HTN Plan continue Vancomycin and Zosyn day 2; blood cx are negative; awaiting plan of surgery and will await wound cx / abscess cx will continue to monitor clinically
[2017-08-02] MEDS ORDERED: Bupivacaine 0.5% Inj(30mL) ONE (18:30)
[2017-08-02] MEDS ORDERED: Lidocaine 1% Inj (20ml) ONE (18:30)
[2017-08-02] MEDS ORDERED: Propofol 10 mg/ml Inj (20 ML) ONE (18:41)
[2017-08-02] MEDS ORDERED: HYDROmorphone 0.5 mg/0.5 ml ISec IVP PRN (19:56)
[2017-08-02] MEDS ORDERED: HYDROmorphone 0.5 mg/0.5 ml ISec ONE (20:00)
[2017-08-02] MEDS ORDERED: Lactated Ringer's 1,000 ML IV SCH (20:00)
--- NOTE | 2017-08-02 20:04 | PCM.SURG1 ---
Surgeon's Initial Post Op Note - Surgeon's Notes Surgeon: Dr. Hoyt Ticket Dispenser Changer: Dr. Carson PGY2, Joel MS4 Type of Anesthesia: General LMA Pre-Operative Diagnosis: Breast Abscess Operative Findings: See Operative Note Post-Operative Diagnosis: Breast Abscess Operation Performed: Breast abscess drainage, incisional breast biopsy Specimen/Specimens Removed: Breast Scar, Breast abscess wall Estimated Blood Loss: EBL {In ML}: 25 Blood Products Given: N/A Drains Used: No Drains Post-Op Condition: Good Date of Surgery/Procedure: 08/02/17 Time of Surgery/Procedure: 20:04
[2017-08-02] MEDS: HYDROmorphone 2 mg/ml ISec IVP PRN (20:54)
--- NOTE | 2017-08-02 21:53 | CP.PCM.PN ---
Subjective - Date & Time of Evaluation Date of Evaluation: 08/02/17 Time of Evaluation: 21:53 - Subjective Subjective: Subjective: S:It was requested to insert a heparin lock. Patient has no complaints now. Pertinent medical record was reviewed. O: Last Vital Signs Last Vital Signs 3 Temp 99.7 F H 08/02/17 20:35 Pulse 84 08/02/17 20:35 Resp 16 08/02/17 20:35 BP 130/75 08/02/17 20:35 Pulse Ox 100 08/02/17 20:35 Awake, alert, not in distress. LUNGS:Normal breathing pattern. A:Poor venous access. Encounter for intravenous line placement. P:# 24 angiocath was inserted in right forearm. Recheck blood pressure. Objective - Vital Signs/Intake and Output Vital Signs (last 24 hours): Temp Pulse Resp BP Pulse Ox 99.7 F H 84 16 130/75 100 08/02/17 20:35 08/02/17 20:35 08/02/17 20:35 08/02/17 20:35 08/02/17 20:35 Intake and Output: 08/02/17 08/03/17 18:59 06:59 Intake Total 840 315 Balance 840 315 - Medications Medications: Current Medications Amlodipine Besylate (Norvasc) 10 mg PO DAILY [facility] Last Admin: 08/02/17 10:23 Dose: 10 mg Aspirin (Ecotrin) 81 mg PO DAILY [facility] Last Admin: 08/02/17 10:24 Dose: 81 mg Glimepiride (Amaryl) 4 mg PO BID [facility] Last Admin: 08/02/17 17:00 Dose: Not Given Hydromorphone HCl (Dilaudid) 0.5 mg IVP Q15M PRN PRN Reason: Pain, moderate (4-7) Stop: 08/02/17 21:56 Hydromorphone HCl (Dilaudid) 1 mg IVP Q4H PRN PRN Reason: Pain, moderate (4-7) Last Admin: 08/02/17 20:54 Dose: 1 mg Vancomycin HCl (Vancomycin 1gm) 1 gm in 250 mls @ 167 mls/hr IVPB Q12H [facility] PRN Reason: Protocol Last Admin: 08/02/17 17:47 Dose: Not Given Piperacillin Sod/Tazobactam Sod (Zosyn 3.375 In Ns 100ml) 100 mls @ 200 mls/hr IVPB Q8 [facility] PRN Reason: Protocol Stop: 08/07/17 22:01 Last Admin: 08/02/17 15:55 Dose: Not Given Sodium Chloride (Sodium Chloride 0.45%) 1,000 mls @ 75 mls/hr IV .[id number] [facility] Last Admin: 08/01/17 12:07 Dose: 75 mls/hr Lactated Ringer's (Lactated Ringer's) 1,000 mls @ 75 mls/hr IV .[id number] [facility] Stop: 08/02/17 22:01 Last Admin: 08/02/17 21:27 Dose: 75 mls/hr Insulin Human Lispro (Humalog High) 0 units SC ACHS [facility] PRN Reason: Protocol Last Admin: 08/02/17 17:00 Dose: Not Given Metformin HCl (Glucophage) 500 mg PO BID [facility] Last Admin: 08/02/17 17:00 Dose: Not Given Morphine Sulfate (Morphine) 4 mg IVP Q6H PRN PRN Reason: Pain, severe (8-10) Last Admin: 08/01/17 18:42 Dose: 4 mg Ondansetron HCl (Zofran Inj) 4 mg IVP Q6H PRN PRN Reason: Nausea/Vomiting Last Admin: 08/01/17 17:55 Dose: 4 mg Valsartan (Diovan) 320 mg PO DAILY [facility] Last Admin: 08/02/17 10:23 Dose: 320 mg - Labs Labs: 08/02/17 06:30 08/02/17 06:30 PT 12.7 SECONDS (9.4-12.5) H 08/01/17 05:45 INR 1.15 (0.93-1.08) H 08/01/17 05:45 APTT 24.0 Seconds (25.1-36.5) L 08/01/17 05:45
[2017-08-03] MEDS: HYDROmorphone 2 mg/ml ISec IVP PRN ×2 (06:15→15:08)
[2017-08-03] MEDS: Vancomycin 1gm in NS 250ml 1 GM/250 ML BAG IVPB SCH ×2 (06:24→17:44)
[2017-08-03] MEDS: Piperacillin/Tazobact 3.375 gm 100 ML IVPB SCH ×3 (06:25→21:38)
[2017-08-03] MEDS: Sodium Chloride 0.45% 1,000 ML IV SCH (06:26)
--- NOTE | 2017-08-03 08:53 | PN ---
DATE: 08/02/2017 SUBJECTIVE: The patient is a 46-year-old, seen and examined. Still has right breast pain. We are unable to do I and D yesterday, scheduled for 5:00 today. PHYSICAL EXAMINATION VITAL SIGNS: She has temperature of 99.6, pulse 95, respiration 20, blood pressure 123/79. HEART: S1 and S2 audible. LUNGS: Bilateral fair airflow. No rhonchi or crackle. ABDOMEN: Soft, nontender. No rebound, no guarding. NEUROLOGIC: The patient is awake, alert, oriented, communicative. LABORATORY EXAMINATION: WBC is 10.5, hemoglobin 10.4, hematocrit 31.5, platelet of 282. Chemistry: Sodium , potassium 3.6, chloride 102, CO2 of 28, BUN 9, creatinine 0.9, blood sugar 105. ASSESSMENT: 1. Right breast abscess. 2. Swg-cwbuqfz-ccrbcojuu diabetes. 3. Hypertension. 4. Morbid obesity. PLAN: Currently, the patient is on IV fluid. Scheduled to have procedure done tonight. Continue current medications. She is on vancomycin and Zosyn. Mina Cabral MD
[2017-08-03] MEDS: Insulin Lispro (HUMAlog) HIGH Coverage SC SCH ×4 (10:46→22:55)
--- NOTE | 2017-08-03 11:52 | CP.PCM.PN ---
<Rand Ordoñez - Last Filed: 08/03/17 11:49> Subjective - Date & Time of Evaluation Date of Evaluation: 08/03/17 Time of Evaluation: 07:00 - Subjective Subjective: Surgery: Dr. Hoyt Pt seen and examined. No acute events overnight. Pt states she's feeling well this morning. Admits to some pain around the incision. Tolerating her diet. Denies N/V, F/C. Objective - Vital Signs/Intake and Output Vital Signs (last 24 hours): Temp Pulse Resp BP Pulse Ox 98.5 F 79 18 123/73 95 08/03/17 08:53 08/03/17 08:53 08/03/17 08:53 08/03/17 10:49 08/03/17 08:53 Intake and Output: 08/03/17 08/03/17 06:59 18:59 Intake Total 315 Balance 315 - Medications Medications: Current Medications Amlodipine Besylate (Norvasc) 10 mg PO DAILY [facility] Last Admin: 08/03/17 10:49 Dose: 10 mg Aspirin (Ecotrin) 81 mg PO DAILY [facility] Last Admin: 08/03/17 10:47 Dose: 81 mg Glimepiride (Amaryl) 4 mg PO BID [facility] Last Admin: 08/03/17 10:47 Dose: 4 mg Hydromorphone HCl (Dilaudid) 1 mg IVP Q4H PRN PRN Reason: Pain, moderate (4-7) Last Admin: 08/03/17 06:15 Dose: 1 mg Vancomycin HCl (Vancomycin 1gm) 1 gm in 250 mls @ 167 mls/hr IVPB Q12H [facility] PRN Reason: Protocol Last Admin: 08/03/17 06:24 Dose: 167 mls/hr Piperacillin Sod/Tazobactam Sod (Zosyn 3.375 In Ns 100ml) 100 mls @ 200 mls/hr IVPB Q8 [facility] PRN Reason: Protocol Stop: 08/07/17 22:01 Last Admin: 08/03/17 06:25 Dose: 200 mls/hr Sodium Chloride (Sodium Chloride 0.45%) 1,000 mls @ 75 mls/hr IV .[id number] [facility] Last Admin: 08/03/17 06:26 Dose: 75 mls/hr Insulin Human Lispro (Humalog High) 0 units SC ACHS [facility] PRN Reason: Protocol Last Admin: 08/03/17 10:46 Dose: 2 units Metformin HCl (Glucophage) 500 mg PO BID [facility] Last Admin: 08/03/17 10:47 Dose: 500 mg Morphine Sulfate (Morphine) 4 mg IVP Q6H PRN PRN Reason: Pain, severe (8-10) Last Admin: 08/01/17 18:42 Dose: 4 mg Ondansetron HCl (Zofran Inj) 4 mg IVP Q6H PRN PRN Reason: Nausea/Vomiting Last Admin: 08/01/17 17:55 Dose: 4 mg Valsartan (Diovan) 320 mg PO DAILY [facility] Last Admin: 08/03/17 10:46 Dose: 320 mg - Labs Labs: 08/02/17 06:30 08/02/17 06:30 PT 12.7 SECONDS (9.4-12.5) H 08/01/17 05:45 INR 1.15 (0.93-1.08) H 08/01/17 05:45 APTT 24.0 Seconds (25.1-36.5) L 08/01/17 05:45 - Constitutional Appears: Well, No Acute Distress - Head Exam Head Exam: ATRAUMATIC, NORMOCEPHALIC - Eye Exam Eye Exam: Normal appearance - ENT Exam ENT Exam: Mucous Membranes Moist - Respiratory Exam Respiratory Exam: NORMAL BREATHING PATTERN - Cardiovascular Exam Cardiovascular Exam: RRR - GI/Abdominal Exam GI & Abdominal Exam: Soft. absent: Distended, Tenderness - Extremities Exam Extremities Exam: Full ROM - Neurological Exam Neurological Exam: Alert, Awake, Oriented x3 - Skin Skin Exam: Warm - Additional Findings Additional findings: Breast: R breast packing removed and incision lightly re-packed. No active drainage Assessment and Plan - Assessment and Plan (Free Text) Assessment: 46F s/p I&D & biopsies of recurrent R breast abscess; POD#1 Plan: - daily packing changes - plan for wound vac tomorrow morning - cont abx - d/w Dr. Lai Ordoñez. PGY-3 Surgery <Nitin Hoyt - Last Filed: 08/05/17 08:00> Objective - Vital Signs/Intake and Output Vital Signs (last 24 hours): Temp Pulse Resp BP Pulse Ox 97.8 F 94 H 20 143/86 98 08/05/17 06:00 08/05/17 06:00 08/05/17 06:00 08/05/17 06:00 08/05/17 06:00 Intake and Output: 08/05/17 08/05/17 06:59 18:59 Intake Total 1350 Balance 1350 - Medications Medications: Current Medications Amlodipine Besylate (Norvasc) 10 mg PO DAILY [facility] Last Admin: 08/04/17 10:17 Dose: 10 mg Aspirin (Ecotrin) 81 mg PO DAILY [facility] Last Admin: 08/04/17 10:22 Dose: Not Given Glimepiride (Amaryl) 4 mg PO BID [facility] Last Admin: 08/04/17 17:11 Dose: 4 mg Hydromorphone HCl (Dilaudid) 1 mg IVP Q4H PRN PRN Reason: Pain, moderate (4-7) Last Admin: 08/04/17 11:20 Dose: 1 mg Vancomycin HCl (Vancomycin 1gm) 1 gm in 250 mls @ 167 mls/hr IVPB Q12H [facility] PRN Reason: Protocol Last Admin: 08/05/17 05:50 Dose: Not Given Piperacillin Sod/Tazobactam Sod (Zosyn 3.375 In Ns 100ml) 100 mls @ 200 mls/hr IVPB Q8 [facility] PRN Reason: Protocol Stop: 08/07/17 22:01 Last Admin: 08/05/17 05:50 Dose: Not Given Insulin Detemir (Levemir) 25 unit SC HS [facility] Last Admin: 08/04/17 22:08 Dose: 25 unit Insulin Human Lispro (Humalog High) 0 units SC ACHS [facility] PRN Reason: Protocol Last Admin: 08/04/17 22:02 Dose: Not Given Metformin HCl (Glucophage) 500 mg PO BID [facility] Last Admin: 08/04/17 17:11 Dose: 500 mg Morphine Sulfate (Morphine) 4 mg IVP Q6H PRN PRN Reason: Pain, severe (8-10) Last Admin: 08/01/17 18:42 Dose: 4 mg Ondansetron HCl (Zofran Inj) 4 mg IVP Q6H PRN PRN Reason: Nausea/Vomiting Last Admin: 08/04/17 17:17 Dose: 4 mg Valsartan (Diovan) 320 mg PO DAILY [facility] Last Admin: 08/04/17 10:16 Dose: 320 mg - Labs Labs: 08/04/17 10:32 08/02/17 06:30 PT 12.8 SECONDS (9.4-12.5) H 08/03/17 18:38 INR 1.17 (0.93-1.08) H 08/03/17 18:38 APTT 27.3 Seconds (25.1-36.5) 08/03/17 18:38 Assessment and Plan - Assessment and Plan (Free Text) Plan: Patient was seen and examined by me. I agree with assessment and plan as per resident's note.
--- NOTE | 2017-08-03 17:09 | CP.PCM.PN ---
Subjective - Date & Time of Evaluation Date of Evaluation: 08/03/17 Time of Evaluation: 10:20 - Subjective Subjective: Still with some pain in the right breast, had I and D done yesterday. No fevers overnight. Objective - Vital Signs/Intake and Output Vital Signs (last 24 hours): Temp Pulse Resp BP Pulse Ox 99.7 F H 84 16 130/75 100 08/02/17 20:35 08/02/17 20:35 08/02/17 20:35 08/02/17 20:35 08/02/17 20:35 Intake and Output: 08/03/17 08/03/17 06:59 18:59 Intake Total 315 Balance 315 - Medications Medications: Current Medications Amlodipine Besylate (Norvasc) 10 mg PO DAILY [facility] Last Admin: 08/02/17 10:23 Dose: 10 mg Aspirin (Ecotrin) 81 mg PO DAILY [facility] Last Admin: 08/02/17 10:24 Dose: 81 mg Glimepiride (Amaryl) 4 mg PO BID [facility] Last Admin: 08/02/17 17:00 Dose: Not Given Hydromorphone HCl (Dilaudid) 1 mg IVP Q4H PRN PRN Reason: Pain, moderate (4-7) Last Admin: 08/03/17 06:15 Dose: 1 mg Vancomycin HCl (Vancomycin 1gm) 1 gm in 250 mls @ 167 mls/hr IVPB Q12H [facility] PRN Reason: Protocol Last Admin: 08/03/17 06:24 Dose: 167 mls/hr Piperacillin Sod/Tazobactam Sod (Zosyn 3.375 In Ns 100ml) 100 mls @ 200 mls/hr IVPB Q8 [facility] PRN Reason: Protocol Stop: 08/07/17 22:01 Last Admin: 08/03/17 06:25 Dose: 200 mls/hr Sodium Chloride (Sodium Chloride 0.45%) 1,000 mls @ 75 mls/hr IV .[id number] [facility] Last Admin: 08/03/17 06:26 Dose: 75 mls/hr Insulin Human Lispro (Humalog High) 0 units SC ACHS [facility] PRN Reason: Protocol Last Admin: 08/02/17 17:00 Dose: Not Given Metformin HCl (Glucophage) 500 mg PO BID [facility] Last Admin: 08/02/17 17:00 Dose: Not Given Morphine Sulfate (Morphine) 4 mg IVP Q6H PRN PRN Reason: Pain, severe (8-10) Last Admin: 08/01/17 18:42 Dose: 4 mg Ondansetron HCl (Zofran Inj) 4 mg IVP Q6H PRN PRN Reason: Nausea/Vomiting Last Admin: 08/01/17 17:55 Dose: 4 mg Valsartan (Diovan) 320 mg PO DAILY [facility] Last Admin: 08/02/17 10:23 Dose: 320 mg - Labs Labs: 08/02/17 06:30 08/02/17 06:30 PT 12.7 SECONDS (9.4-12.5) H 08/01/17 05:45 INR 1.15 (0.93-1.08) H 08/01/17 05:45 APTT 24.0 Seconds (25.1-36.5) L 08/01/17 05:45 - Constitutional Appears: Non-toxic, No Acute Distress - Head Exam Head Exam: NORMAL INSPECTION - ENT Exam ENT Exam: Mucous Membranes Moist - Neck Exam Neck Exam: absent: Lymphadenopathy, Meningismus - Respiratory Exam Respiratory Exam: Decreased Breath Sounds - Cardiovascular Exam Cardiovascular Exam: +S1, +S2 - GI/Abdominal Exam GI & Abdominal Exam: Soft. absent: Tenderness Assessment and Plan - Assessment and Plan (Free Text) Plan: Assessment Sepsis due to right sided breast abscess S/P I and D POD #1 history of recurrent breast abscess bilaterally morbid obesity with BMI 42 DM HTN Plan continue Vancomycin and Zosyn day 3; blood cx are negative; awaiting wound cx / abscess cx will continue to monitor clinically
[2017-08-03] MEDS ORDERED: Phytonadione 10 mg/ml Inj (Adult) SC ONE (17:26)
[2017-08-03 18:43] LABS: BASO # 0.01 K/mm3 (0.0-2.0); BASO % 0.1 % (0.0-3.0); EOS # 0.1 (0.0-0.7); EOS % 0.4 % (1.5-5.0); GRAN # 11.74 (1.4-6.5); GRAN % 82.2 % (50.0-68.0); HEMATOCRIT 28.9 % (36.0-48.0); LYMPH # 1.6 (1.2-3.4); LYMPH % 10.9 % (22.0-35.0); MEAN CELL VOLUME 84.8 fl (80.0-105.0); MEAN CORPUSCULAR HEMOGLOBIN 27.6 pg (25.0-35.0); MEAN CORPUSCULAR HGB CONC 32.5 g/dl (31.0-37.0); MEAN PLATELET VOLUME 9.8 fl (7.0-11.0); MONO # 0.9 (0.1-0.6); MONO % 6.4 % (1.0-6.0); RED CELL DISTRIBUTION WIDTH 12.9 % (11.5-14.5); WHITE BLOOD COUNT 14.3 10^3/ul (4.5-11.0)
[2017-08-03 18:54] LABS: INR 1.17 (0.93-1.08); PARTIAL THROMBOPLASTIN TIME 27.3 Seconds (25.1-36.5)
--- NOTE | 2017-08-03 19:57 | CP.PCM.PN ---
Subjective - Date & Time of Evaluation Date of Evaluation: 08/03/17 Time of Evaluation: 19:54 - Subjective Subjective: Patient has very poor veins,needs iv access. Objective - Vital Signs/Intake and Output Vital Signs (last 24 hours): Temp Pulse Resp BP Pulse Ox 98.5 F 79 18 123/73 95 08/03/17 10:00 08/03/17 10:00 08/03/17 10:00 08/03/17 10:49 08/03/17 10:00 - Medications Medications: Current Medications Amlodipine Besylate (Norvasc) 10 mg PO DAILY [facility] Last Admin: 08/03/17 10:49 Dose: 10 mg Aspirin (Ecotrin) 81 mg PO DAILY [facility] Last Admin: 08/03/17 10:47 Dose: 81 mg Glimepiride (Amaryl) 4 mg PO BID [facility] Last Admin: 08/03/17 17:39 Dose: 4 mg Hydromorphone HCl (Dilaudid) 1 mg IVP Q4H PRN PRN Reason: Pain, moderate (4-7) Last Admin: 08/03/17 15:08 Dose: 1 mg Vancomycin HCl (Vancomycin 1gm) 1 gm in 250 mls @ 167 mls/hr IVPB Q12H [facility] PRN Reason: Protocol Last Admin: 08/03/17 17:44 Dose: 167 mls/hr Piperacillin Sod/Tazobactam Sod (Zosyn 3.375 In Ns 100ml) 100 mls @ 200 mls/hr IVPB Q8 [facility] PRN Reason: Protocol Stop: 08/07/17 22:01 Last Admin: 08/03/17 14:19 Dose: 200 mls/hr Sodium Chloride (Sodium Chloride 0.45%) 1,000 mls @ 75 mls/hr IV .[id number] [facility] Last Admin: 08/03/17 06:26 Dose: 75 mls/hr Insulin Detemir (Levemir) 25 unit SC HS [facility] Insulin Human Lispro (Humalog High) 0 units SC ACHS [facility] PRN Reason: Protocol Last Admin: 08/03/17 17:00 Dose: 4 units Metformin HCl (Glucophage) 500 mg PO BID [facility] Last Admin: 08/03/17 17:39 Dose: 500 mg Morphine Sulfate (Morphine) 4 mg IVP Q6H PRN PRN Reason: Pain, severe (8-10) Last Admin: 08/01/17 18:42 Dose: 4 mg Ondansetron HCl (Zofran Inj) 4 mg IVP Q6H PRN PRN Reason: Nausea/Vomiting Last Admin: 08/01/17 17:55 Dose: 4 mg Valsartan (Diovan) 320 mg PO DAILY [facility] Last Admin: 08/03/17 10:46 Dose: 320 mg - Labs Labs: 08/02/17 06:30 08/02/17 06:30 PT 12.8 SECONDS (9.4-12.5) H 08/03/17 18:38 INR 1.17 (0.93-1.08) H 08/03/17 18:38 APTT 27.3 Seconds (25.1-36.5) 08/03/17 18:38 - Constitutional Appears: No Acute Distress Assessment and Plan - Assessment and Plan (Free Text) Assessment: Poor venous access Plan: Hep lock inserted in the R wrist region. #24 angiocath used.
[2017-08-03] MEDS: Insulin Detemir 100 units/ml Vial (Levemir) SC SCH (21:59)
[2017-08-04] MEDS: Piperacillin/Tazobact 3.375 gm 100 ML IVPB SCH ×3 (05:36→22:10)
[2017-08-04] MEDS: Vancomycin 1gm in NS 250ml 1 GM/250 ML BAG IVPB SCH ×3 (05:37→22:09)
[2017-08-04] MEDS: Sodium Chloride 0.45% 1,000 ML IV SCH (05:38)
[2017-08-04] MEDS: HYDROmorphone 2 mg/ml ISec IVP PRN ×2 (07:30→11:20)
[2017-08-04] MEDS: Insulin Lispro (HUMAlog) HIGH Coverage SC SCH ×4 (08:20→22:02)
--- NOTE | 2017-08-04 08:55 | PN ---
DATE: 08/03/2017 SUBJECTIVE: The patient is 46-year-old seen and examined, lying in bed, seems to be comfortable except she has pain in the right breast area where she has drained and has some bleeding from the site. PHYSICAL EXAMINATION VITAL SIGNS: The patient is afebrile. Pulse 79, respirations 18, blood pressure 126/73. LUNGS: Bilateral fair airflow. No rhonchi or crackle. HEART: S1, S2 audible. ABDOMEN: Soft, nontender. No rebound, no guarding. NEUROLOGICAL: The patient is awake, alert, oriented, communicative. LABORATORY DATA: Blood sugar is 200. Blood cultures are negative. ASSESSMENT: 1. Right breast abscess, status post incision and drainage. 2. Hypertension. 3. Hyperlipidemia. PLAN: Currently, the patient is on vancomycin and Zosyn. We will continue that. We will start her on a small dose of Levemir since blood sugar is running high. Wound care is being done by the Surgical Team. We will monitor her blood sugar. Mina Cabral MD
--- NOTE | 2017-08-04 09:44 | CP.PCM.PN ---
<Sekou Rivera - Last Filed: 08/04/17 09:34> Subjective - Date & Time of Evaluation Date of Evaluation: 08/04/17 Time of Evaluation: 09:34 - Subjective Subjective: PGY1 General Surgery Note for Dr. Hoyt Patient seen and examined at bedside this morning. Patient needed multiple dressing changes throughout the day yesterday due complete saturation through her dressings and soaking her bed. Patient stated the bleeding finally stopped after Dr. Hoyt himself re-dressed the I&D site. Patient reports a fever last night that was successfully treated with tylenol. She is not experiencing any fevers or chills at this moment. Patient states that her pain is well controlled and that she is currently without pain (took her pain medicine 2 hours ago). Patient has eaten very minimal of her breakfast tray and states that she feels nauseous. She said that she has dry heaved a couple of times throughout the past couple of days but has not vomited. She has a decreased appetite, partially due to the fear of vomiting if she eats too much and partially because she does not like the food. She has been able to tolerate some food that her family has brought her from home. Patient states she has not had a bowel movement since monday, before she got admitted to the hospital. Patient states that she experiences constipation, along with nausea, every time she is admitted to the hospital. Patient says she has some intermittent, generalized abdominal discomfort but feels like she needs to evacuate her bowels more than a feeling of pain. Denies shortness of breath, chest pain, diaphoresis, numbness or tingling. Objective - Vital Signs/Intake and Output Vital Signs (last 24 hours): Temp Pulse Resp BP Pulse Ox 99 F 77 18 131/79 98 08/04/17 09:01 08/04/17 09:01 08/04/17 09:01 08/04/17 09:01 08/04/17 09:01 Intake and Output: 08/04/17 08/04/17 06:59 18:59 Intake Total 780 120 Balance 780 120 - Medications Medications: Current Medications Amlodipine Besylate (Norvasc) 10 mg PO DAILY [facility] Last Admin: 08/03/17 10:49 Dose: 10 mg Aspirin (Ecotrin) 81 mg PO DAILY [facility] Last Admin: 08/03/17 10:47 Dose: 81 mg Glimepiride (Amaryl) 4 mg PO BID [facility] Last Admin: 08/03/17 17:39 Dose: 4 mg Hydromorphone HCl (Dilaudid) 1 mg IVP Q4H PRN PRN Reason: Pain, moderate (4-7) Last Admin: 08/04/17 07:30 Dose: 1 mg Vancomycin HCl (Vancomycin 1gm) 1 gm in 250 mls @ 167 mls/hr IVPB Q12H [facility] PRN Reason: Protocol Last Admin: 08/04/17 05:37 Dose: 167 mls/hr Piperacillin Sod/Tazobactam Sod (Zosyn 3.375 In Ns 100ml) 100 mls @ 200 mls/hr IVPB Q8 [facility] PRN Reason: Protocol Stop: 08/07/17 22:01 Last Admin: 08/04/17 05:36 Dose: 200 mls/hr Sodium Chloride (Sodium Chloride 0.45%) 1,000 mls @ 75 mls/hr IV .[id number] [facility] Last Admin: 08/04/17 05:38 Dose: 75 mls/hr Insulin Detemir (Levemir) 25 unit SC HS [facility] Last Admin: 08/03/17 21:59 Dose: 25 unit Insulin Human Lispro (Humalog High) 0 units SC ACHS [facility] PRN Reason: Protocol Last Admin: 08/04/17 08:20 Dose: 7 units Metformin HCl (Glucophage) 500 mg PO BID [facility] Last Admin: 08/03/17 17:39 Dose: 500 mg Morphine Sulfate (Morphine) 4 mg IVP Q6H PRN PRN Reason: Pain, severe (8-10) Last Admin: 08/01/17 18:42 Dose: 4 mg Ondansetron HCl (Zofran Inj) 4 mg IVP Q6H PRN PRN Reason: Nausea/Vomiting Last Admin: 08/01/17 17:55 Dose: 4 mg Valsartan (Diovan) 320 mg PO DAILY [facility] Last Admin: 08/03/17 10:46 Dose: 320 mg - Labs Labs: 08/03/17 18:38 08/02/17 06:30 PT 12.8 SECONDS (9.4-12.5) H 08/03/17 18:38 INR 1.17 (0.93-1.08) H 08/03/17 18:38 APTT 27.3 Seconds (25.1-36.5) 08/03/17 18:38 - Constitutional Appears: Non-toxic, No Acute Distress - Head Exam Head Exam: ATRAUMATIC, NORMOCEPHALIC - Eye Exam Eye Exam: EOMI, Normal appearance. absent: Scleral icterus - ENT Exam ENT Exam: Mucous Membranes Moist - Respiratory Exam Respiratory Exam: NORMAL BREATHING PATTERN. absent: Accessory Muscle Use, Respiratory Distress - Cardiovascular Exam Cardiovascular Exam: REGULAR RHYTHM - GI/Abdominal Exam GI & Abdominal Exam: Soft. absent: Distended, Firm, Guarding, Rigid, Tenderness (generalized discomfort, not pain or tenderness) - Extremities Exam Extremities Exam: absent: Calf Tenderness, Pedal Edema - Neurological Exam Neurological Exam: Alert, Awake, Oriented x3 - Psychiatric Exam Psychiatric exam: Normal Affect, Normal Mood - Skin Skin Exam: Dry, Warm - Additional Findings Additional findings: Right Breast: Dressing with strike through (dried blood). Will plan to repack later today, planning to switch to wound vac once it arrives (has been ordered) . Assessment and Plan - Assessment and Plan (Free Text) Assessment: 46F s/p I&D & biopsies of recurrent R breast abscess; POD#2 Plan: - daily packing changes - plan for wound vac once it arrives (ordered) - cont abx - pain management Will discuss with Dr. Lai Sapp Miguel PGY1 <Nitin Hoyt - Last Filed: 08/05/17 08:01> Objective - Vital Signs/Intake and Output Vital Signs (last 24 hours): Temp Pulse Resp BP Pulse Ox 97.8 F 94 H 20 143/86 98 08/05/17 06:00 08/05/17 06:00 08/05/17 06:00 08/05/17 06:00 08/05/17 06:00 Intake and Output: 08/05/17 08/05/17 06:59 18:59 Intake Total 1350 Balance 1350 - Medications Medications: Current Medications Amlodipine Besylate (Norvasc) 10 mg PO DAILY [facility] Last Admin: 08/04/17 10:17 Dose: 10 mg Aspirin (Ecotrin) 81 mg PO DAILY [facility] Last Admin: 08/04/17 10:22 Dose: Not Given Glimepiride (Amaryl) 4 mg PO BID [facility] Last Admin: 08/04/17 17:11 Dose: 4 mg Hydromorphone HCl (Dilaudid) 1 mg IVP Q4H PRN PRN Reason: Pain, moderate (4-7) Last Admin: 08/04/17 11:20 Dose: 1 mg Vancomycin HCl (Vancomycin 1gm) 1 gm in 250 mls @ 167 mls/hr IVPB Q12H [facility] PRN Reason: Protocol Last Admin: 08/05/17 05:50 Dose: Not Given Piperacillin Sod/Tazobactam Sod (Zosyn 3.375 In Ns 100ml) 100 mls @ 200 mls/hr IVPB Q8 [facility] PRN Reason: Protocol Stop: 08/07/17 22:01 Last Admin: 08/05/17 05:50 Dose: Not Given Insulin Detemir (Levemir) 25 unit SC HS [facility] Last Admin: 08/04/17 22:08 Dose: 25 unit Insulin Human Lispro (Humalog High) 0 units SC [facility] PRN Reason: Protocol Last Admin: 08/04/17 22:02 Dose: Not Given Metformin HCl (Glucophage) 500 mg PO BID [facility] Last Admin: 08/04/17 17:11 Dose: 500 mg Morphine Sulfate (Morphine) 4 mg IVP Q6H PRN PRN Reason: Pain, severe (8-10) Last Admin: 08/01/17 18:42 Dose: 4 mg Ondansetron HCl (Zofran Inj) 4 mg IVP Q6H PRN PRN Reason: Nausea/Vomiting Last Admin: 08/04/17 17:17 Dose: 4 mg Valsartan (Diovan) 320 mg PO DAILY [facility] Last Admin: 08/04/17 10:16 Dose: 320 mg - Labs Labs: 08/04/17 10:32 08/02/17 06:30 PT 12.8 SECONDS (9.4-12.5) H 08/03/17 18:38 INR 1.17 (0.93-1.08) H 08/03/17 18:38 APTT 27.3 Seconds (25.1-36.5) 08/03/17 18:38 Assessment and Plan - Assessment and Plan (Free Text) Plan: Patient was seen and examined by me. I agree with assessment and plan as per resident's note.
[2017-08-04 10:39] LABS: HEMATOCRIT 25.3 % (36.0-48.0); MEAN CELL VOLUME 84.3 fl (80.0-105.0); MEAN CORPUSCULAR HEMOGLOBIN 27.3 pg (25.0-35.0); MEAN CORPUSCULAR HGB CONC 32.4 g/dl (31.0-37.0); MEAN PLATELET VOLUME 9.9 fl (7.0-11.0); RED CELL DISTRIBUTION WIDTH 12.9 % (11.5-14.5)
--- NOTE | 2017-08-04 19:25 | PN ---
DATE: SUBJECTIVE: The patient is 46 years old, seen and examined, doing well, less pain, has I and D done on the right under breast area. No more bleeding. PHYSICAL EXAMINATION VITAL SIGNS: She has temperature of 99, pulse 77, respirations 18 and blood pressure 131/80. LUNGS: Bilateral fair airflow. No rhonchi or crackle. HEART: S1 and S2 audible. ABDOMEN: Soft and nontender. No rebound. No guarding. NEUROLOGIC: She is awake, alert and oriented, communicative. LABORATORY DATA: WBC is 11, hemoglobin 8.2, hematocrit 25.3 and platelet of 268. Chemistry: Blood sugar is 242. ASSESSMENT: 1. Right breast abscess status post incision and drainage. 2. Hypertension. 3. Non-insulin dependent diabetes. 4. Morbid obesity. PLAN: We will continue the patient on vancomycin and Zosyn. Discharge plan as per surgical team. Mina Cabral MD
[2017-08-04] MEDS: Insulin Detemir 100 units/ml Vial (Levemir) SC SCH (22:08)
[2017-08-05] MEDS: Sodium Chloride 0.45% 1,000 ML IV SCH (00:44)
[2017-08-05] MEDS: Vancomycin 1gm in NS 250ml 1 GM/250 ML BAG IVPB SCH (05:50)
[2017-08-05] MEDS: Piperacillin/Tazobact 3.375 gm 100 ML IVPB SCH ×3 (05:50→13:32)
[2017-08-05] MEDS ORDERED: Oxycodone/Acetaminophen 5/325 mg Tab PO STA (06:34)
--- NOTE | 2017-08-05 06:57 | OP ---
PROCEDURE DATE: 08/02/2017 PREOPERATIVE DIAGNOSES: Right breast abscess and right breast mass. POSTOPERATIVE DIAGNOSES: Right breast abscess and right breast mass. PROCEDURE PERFORMED: 1. Incision drainage of the deep right breast abscess. 2. Incisional biopsy of right breast mass. SURGEON: Nitin Hoyt MD MOVIE MACHINE OPERATOR: Dr. Carson ANESTHESIA ADMINISTERED BY: Dr. Farias. TYPE OF ANESTHESIA: General endotracheal anesthesia. ESTIMATED BLOOD LOSS: Minimal. SPECIMEN: 1. Cultures from the abscess. 2. Breast tissue from incisional biopsy. DESCRIPTION OF PROCEDURE: The patient is a 46-year-old female with previous history of multiple recurrent breast abscesses, and at this point, the patient's abscess is recurrent in the outer lower quadrant of the right breast. The patient's last incision and drainage took place earlier this year. The patient was treated with IV antibiotics and was hydrated and now was brought in to the operating room for drainage of the abscess and biopsy of the underlying lesion. The patient was brought to the operating room and placed on the operating table in a supine position. The patient was connected to EKG, blood pressure, and pulse oximetry monitor. The patient then underwent general endotracheal anesthesia and was prepped and draped in the usual sterile fashion. First, standard time-out procedure took place, and everybody in the room agreed to this patient identity, diagnosis and the procedure to be performed. Using lidocaine mixed with Marcaine, the incision area was infiltrated, and an elliptical incision was made excising the previous scar. The abscess was unroofed and carefully drained and copiously irrigated with antibiotic-containing saline. The underlying area appeared to be thickened and extending into the breast; therefore, a decision was made to proceed with incisional biopsy of that mass in order to rule out any neoplasm. A wedge of tissue of about 6 x 3 cm was excised and sent as a specimen. The wound was then copiously irrigated. All the irrigant fluid was suctioned out. There was excellent hemostasis, and the wound was now packed with iodoform gauze and partially closed with two nylon stitches. Once this was accomplished, sterile pressure dressing was applied on the wound. The patient tolerated the procedure well, and there was no complications. The patient was awakened and transferred to the recovery room after being extubated for further observation. Nitin Hoyt MD
[2017-08-05] MEDS: Insulin Lispro (HUMAlog) HIGH Coverage SC SCH ×4 (08:18→21:48)
--- NOTE | 2017-08-05 08:53 | CP.PCM.PN ---
<Kristy Granda - Last Filed: 08/05/17 13:20> Subjective - Date & Time of Evaluation Date of Evaluation: 08/05/17 Time of Evaluation: 07:00 - Subjective Subjective: General surgery progress note for Dr. Hoyt-Kristy Granda, PGY-1 Pt S & E at bedside. Pt removed IV overnight, declining re-insertion. States that she either wants all PO meds or to have a PICC line placed due to poor venous access. States pain is well controlled. Denies N & V, F & C, SOB, chest pain, other complaints. Right breast wound dressing/packing changed- well tolerated. Tolerating regular diet. Is OOBTC/ambulating. Objective - Vital Signs/Intake and Output Vital Signs (last 24 hours): Temp Pulse Resp BP Pulse Ox 97.8 F 94 H 20 143/86 98 08/05/17 06:00 08/05/17 06:00 08/05/17 06:00 08/05/17 06:00 08/05/17 06:00 Intake and Output: 08/05/17 08/05/17 06:59 18:59 Intake Total 1350 Balance 1350 - Medications Medications: Current Medications Acetaminophen (Tylenol 325mg Tab) 650 mg PO Q6H PRN PRN Reason: Pain, moderate (4-7) Amlodipine Besylate (Norvasc) 10 mg PO DAILY [facility] Last Admin: 08/04/17 10:17 Dose: 10 mg Aspirin (Ecotrin) 81 mg PO DAILY [facility] Last Admin: 08/04/17 10:22 Dose: Not Given Glimepiride (Amaryl) 4 mg PO BID [facility] Last Admin: 08/04/17 17:11 Dose: 4 mg Vancomycin HCl (Vancomycin 1gm) 1 gm in 250 mls @ 167 mls/hr IVPB Q12H [facility] PRN Reason: Protocol Last Admin: 08/05/17 05:50 Dose: Not Given Piperacillin Sod/Tazobactam Sod (Zosyn 3.375 In Ns 100ml) 100 mls @ 200 mls/hr IVPB Q8 [facility] PRN Reason: Protocol Stop: 08/07/17 22:01 Last Admin: 08/05/17 05:50 Dose: Not Given Insulin Detemir (Levemir) 25 unit SC [facility] Last Admin: 08/04/17 22:08 Dose: 25 unit Insulin Human Lispro (Humalog High) 0 units SC ACHS [facility] PRN Reason: Protocol Last Admin: 08/05/17 08:18 Dose: Not Given Metformin HCl (Glucophage) 500 mg PO BID [facility] Last Admin: 08/04/17 17:11 Dose: 500 mg Ondansetron HCl (Zofran Odt) 4 mg PO Q8H PRN PRN Reason: Nausea/Vomiting Tramadol HCl (Ultram) 50 mg PO TID PRN PRN Reason: Pain, severe (8-10) Valsartan (Diovan) 320 mg PO DAILY [facility] Last Admin: 08/04/17 10:16 Dose: 320 mg - Labs Labs: 08/04/17 10:32 08/02/17 06:30 PT 12.8 SECONDS (9.4-12.5) H 08/03/17 18:38 INR 1.17 (0.93-1.08) H 08/03/17 18:38 APTT 27.3 Seconds (25.1-36.5) 08/03/17 18:38 - Constitutional Appears: Non-toxic, No Acute Distress - Head Exam Head Exam: ATRAUMATIC, NORMAL INSPECTION, NORMOCEPHALIC - Eye Exam Eye Exam: EOMI, Normal appearance - ENT Exam ENT Exam: Mucous Membranes Moist, Normal Exam - Neck Exam Neck Exam: Full ROM, Normal Inspection - Respiratory Exam Respiratory Exam: Clear to Ausculation Bilateral, NORMAL BREATHING PATTERN - Cardiovascular Exam Cardiovascular Exam: REGULAR RHYTHM, +S1, +S2 - GI/Abdominal Exam GI & Abdominal Exam: Soft, Normal Bowel Sounds. absent: Tenderness - Extremities Exam Extremities Exam: Normal Inspection - Neurological Exam Neurological Exam: Alert, Awake, CN II-XII Intact, Oriented x3 - Psychiatric Exam Psychiatric exam: Normal Affect, Normal Mood - Skin Skin Exam: Dry, Normal Color, Warm Additional comments: Right lateral breast w/incision site at approximately 8 o'clock position, dressing with saturating serous strike through with few streaks of sanguinous output. Area non-tender, non erythematous, packing replaced. Assessment and Plan - Assessment and Plan (Free Text) Assessment: 46F POD#3 s/p I & D w/biopsies of recurrent R breast abscess, doing well overnight Plan: Daily packing changes Plan for wound vac Spoke with ID re: PO ABx as pt w/o IV access, plan for Cipro/Doxycycline pending EKG ok Pain meds changed to PO DW attending Kalee, PGY-2 <Nitin Hoyt - Last Filed: 08/05/17 22:57> Objective - Vital Signs/Intake and Output Vital Signs (last 24 hours): Temp Pulse Resp BP Pulse Ox 98.5 F 92 H 20 130/79 100 08/05/17 17:25 08/05/17 17:25 08/05/17 17:25 08/05/17 17:25 08/05/17 17:25 Intake and Output: 08/05/17 08/06/17 18:59 06:59 Intake Total 300 Balance 300 - Medications Medications: Current Medications Acetaminophen (Tylenol 325mg Tab) 650 mg PO Q6H PRN PRN Reason: Pain, moderate (4-7) Amlodipine Besylate (Norvasc) 10 mg PO DAILY [facility] Last Admin: 08/05/17 09:41 Dose: 10 mg Aspirin (Ecotrin) 81 mg PO DAILY [facility] Last Admin: 08/05/17 09:43 Dose: Not Given Ciprofloxacin (Cipro) 750 mg PO Q12 [facility] PRN Reason: Protocol Stop: 08/15/17 22:01 Last Admin: 08/05/17 21:46 Dose: 750 mg Doxycycline Hyclate (Doryx) 100 mg PO Q12 [facility] PRN Reason: Protocol Stop: 08/10/17 22:01 Last Admin: 08/05/17 21:48 Dose: 100 mg Glimepiride (Amaryl) 4 mg PO BID [facility] Last Admin: 08/05/17 17:48 Dose: 4 mg Insulin Detemir (Levemir) 25 unit SC HS [facility] Last Admin: 08/05/17 21:49 Dose: 25 unit Insulin Human Lispro (Humalog High) 0 units SC ACHS [facility] PRN Reason: Protocol Last Admin: 08/05/17 21:48 Dose: Not Given Metformin HCl (Glucophage) 500 mg PO BID [facility] Last Admin: 08/05/17 17:48 Dose: 500 mg Ondansetron HCl (Zofran Odt) 4 mg PO Q8H PRN PRN Reason: Nausea/Vomiting Tramadol HCl (Ultram) 50 mg PO TID PRN PRN Reason: Pain, severe (8-10) Valsartan (Diovan) 320 mg PO DAILY [facility] Last Admin: 08/05/17 09:41 Dose: 320 mg - Labs Labs: 08/04/17 10:32 08/02/17 06:30 PT 12.8 SECONDS (9.4-12.5) H 08/03/17 18:38 INR 1.17 (0.93-1.08) H 08/03/17 18:38 APTT 27.3 Seconds (25.1-36.5) 08/03/17 18:38 Assessment and Plan - Assessment and Plan (Free Text) Plan: Patient was seen and examined by me. I agree with assessment and plan as per resident's note.
--- NOTE | 2017-08-05 10:10 | CARD ---
APPROVED REPORT EKG Measurement Heart [id number] <Conclusion> Normal sinus rhythm Nonspecific T wave abnormality Abnormal ECG
--- NOTE | 2017-08-05 18:28 | CP.PCM.PN ---
Subjective - Date & Time of Evaluation Date of Evaluation: 08/05/17 Time of Evaluation: 08:35 - Subjective Subjective: Comfortable in bed, does not want IV lines placed. No fevers overnight. Objective - Vital Signs/Intake and Output Vital Signs (last 24 hours): Temp Pulse Resp BP Pulse Ox 97.8 F 94 H 20 143/86 98 08/05/17 06:00 08/05/17 06:00 08/05/17 06:00 08/05/17 06:00 08/05/17 06:00 Intake and Output: 08/05/17 08/05/17 06:59 18:59 Intake Total 1350 Balance 1350 - Medications Medications: Current Medications Amlodipine Besylate (Norvasc) 10 mg PO DAILY [facility] Last Admin: 08/04/17 10:17 Dose: 10 mg Aspirin (Ecotrin) 81 mg PO DAILY [facility] Last Admin: 08/04/17 10:22 Dose: Not Given Glimepiride (Amaryl) 4 mg PO BID [facility] Last Admin: 08/04/17 17:11 Dose: 4 mg Hydromorphone HCl (Dilaudid) 1 mg IVP Q4H PRN PRN Reason: Pain, moderate (4-7) Last Admin: 08/04/17 11:20 Dose: 1 mg Vancomycin HCl (Vancomycin 1gm) 1 gm in 250 mls @ 167 mls/hr IVPB Q12H [facility] PRN Reason: Protocol Last Admin: 08/05/17 05:50 Dose: Not Given Piperacillin Sod/Tazobactam Sod (Zosyn 3.375 In Ns 100ml) 100 mls @ 200 mls/hr IVPB Q8 [facility] PRN Reason: Protocol Stop: 08/07/17 22:01 Last Admin: 08/05/17 05:50 Dose: Not Given Insulin Detemir (Levemir) 25 unit SC HS [facility] Last Admin: 08/04/17 22:08 Dose: 25 unit Insulin Human Lispro (Humalog High) 0 units SC ACHS [facility] PRN Reason: Protocol Last Admin: 08/04/17 22:02 Dose: Not Given Metformin HCl (Glucophage) 500 mg PO BID [facility] Last Admin: 08/04/17 17:11 Dose: 500 mg Morphine Sulfate (Morphine) 4 mg IVP Q6H PRN PRN Reason: Pain, severe (8-10) Last Admin: 08/01/17 18:42 Dose: 4 mg Ondansetron HCl (Zofran Inj) 4 mg IVP Q6H PRN PRN Reason: Nausea/Vomiting Last Admin: 08/04/17 17:17 Dose: 4 mg Valsartan (Diovan) 320 mg PO DAILY [facility] Last Admin: 08/04/17 10:16 Dose: 320 mg - Labs Labs: 08/04/17 10:32 08/02/17 06:30 PT 12.8 SECONDS (9.4-12.5) H 08/03/17 18:38 INR 1.17 (0.93-1.08) H 08/03/17 18:38 APTT 27.3 Seconds (25.1-36.5) 08/03/17 18:38 - Constitutional Appears: Non-toxic - Head Exam Head Exam: NORMAL INSPECTION - ENT Exam ENT Exam: Mucous Membranes Moist - Neck Exam Neck Exam: absent: Lymphadenopathy, Meningismus - Respiratory Exam Respiratory Exam: Decreased Breath Sounds - Cardiovascular Exam Cardiovascular Exam: +S1, +S2 - GI/Abdominal Exam GI & Abdominal Exam: Soft. absent: Tenderness Assessment and Plan - Assessment and Plan (Free Text) Plan: Assessment Sepsis due to right sided breast abscess S/P I and D POD #2; so far no growth history of recurrent breast abscess bilaterally morbid obesity with BMI 42 DM HTN Plan on Vancomycin and Zosyn day 4 - can switch to PO Doxycycline and Ciprofloxacin based on previous cultures; blood cx are negative; wound cx / abscess cx are negative as well will continue to monitor clinically
[2017-08-05] MEDS: Insulin Detemir 100 units/ml Vial (Levemir) SC SCH (21:49)
--- NOTE | 2017-08-05 23:02 | PN ---
DATE: SUBJECTIVE: The patient is a 46-year-old, seen and examined, lying in bed, and seems to be comfortable. Denies any nausea or vomiting. She does state that she has poor appetite probably secondary to antibiotics, she has noticed in her mouth. PHYSICAL EXAMINATION: VITAL SIGNS: The patient is afebrile, pulse 92, respirations 20, and blood pressure 130/79. LUNGS: Bilateral fair airflow. No rhonchi or crackle. HEART: S1 and S2 audible. ABDOMEN: Soft, obese, and nontender. No rebound. No guarding. NEUROLOGICAL: She is awake, alert, oriented, and communicative. LABORATORY DATA: Blood sugar is 166. ASSESSMENT: 1. Right breast abscess, status post incision and drainage. 2. Qyg-epjrmxo-qjazgndim diabetes. 3. Hypertension. 4. Hyperlipidemia. 5. Blood loss anemia. PLAN: Currently, the patient has poor IV access and has been switched to p.o. Cipro and doxycycline. If the patient is cleared by surgical team, she can be discharged in a.m. Mina Cabral MD
[2017-08-06 06:25] VITALS: BP 142/95; PULSE 83; RESP 18; TEMP 98.6
[2017-08-06] MEDS: Insulin Lispro (HUMAlog) HIGH Coverage SC SCH ×2 (08:15→12:21)
--- NOTE | 2017-08-06 09:37 | CP.PCM.PN ---
<Rand Ordoñez - Last Filed: 08/06/17 09:34> Subjective - Date & Time of Evaluation Date of Evaluation: 08/06/17 Time of Evaluation: 07:00 - Subjective Subjective: Surgery: Dr. Hoyt Pt seen and examined. No acute overnight events. States she's feeling well and denies pain. Tolerating diet and ambulating. Denies other complaints at this time. Denies N/V, F/C. Objective - Vital Signs/Intake and Output Vital Signs (last 24 hours): Temp Pulse Resp BP Pulse Ox 98.6 F 83 18 142/95 H 95 08/06/17 06:00 08/06/17 06:00 08/06/17 06:00 08/06/17 06:00 08/06/17 06:00 Intake and Output: 08/06/17 08/06/17 06:59 18:59 Intake Total 710 Output Total 0 Balance 710 - Medications Medications: Current Medications Acetaminophen (Tylenol 325mg Tab) 650 mg PO Q6H PRN PRN Reason: Pain, moderate (4-7) Amlodipine Besylate (Norvasc) 10 mg PO DAILY [facility] Last Admin: 08/05/17 09:41 Dose: 10 mg Aspirin (Ecotrin) 81 mg PO DAILY [facility] Last Admin: 08/05/17 09:43 Dose: Not Given Ciprofloxacin (Cipro) 750 mg PO Q12 [facility] PRN Reason: Protocol Stop: 08/15/17 22:01 Last Admin: 08/05/17 21:46 Dose: 750 mg Doxycycline Hyclate (Doryx) 100 mg PO Q12 [facility] PRN Reason: Protocol Stop: 08/10/17 22:01 Last Admin: 08/05/17 21:48 Dose: 100 mg Glimepiride (Amaryl) 4 mg PO BID [facility] Last Admin: 08/05/17 17:48 Dose: 4 mg Insulin Detemir (Levemir) 25 unit SC HS [facility] Last Admin: 08/05/17 21:49 Dose: 25 unit Insulin Human Lispro (Humalog High) 0 units SC ACHS [facility] PRN Reason: Protocol Last Admin: 08/06/17 08:15 Dose: Not Given Metformin HCl (Glucophage) 500 mg PO BID [facility] Last Admin: 08/05/17 17:48 Dose: 500 mg Ondansetron HCl (Zofran Odt) 4 mg PO Q8H PRN PRN Reason: Nausea/Vomiting Tramadol HCl (Ultram) 50 mg PO TID PRN PRN Reason: Pain, severe (8-10) Valsartan (Diovan) 320 mg PO DAILY [facility] Last Admin: 08/05/17 09:41 Dose: 320 mg - Labs Labs: 08/04/17 10:32 08/02/17 06:30 PT 12.8 SECONDS (9.4-12.5) H 08/03/17 18:38 INR 1.17 (0.93-1.08) H 08/03/17 18:38 APTT 27.3 Seconds (25.1-36.5) 08/03/17 18:38 - Constitutional Appears: Well, No Acute Distress - Head Exam Head Exam: ATRAUMATIC, NORMOCEPHALIC - Eye Exam Eye Exam: Normal appearance - ENT Exam ENT Exam: Mucous Membranes Moist - Respiratory Exam Respiratory Exam: NORMAL BREATHING PATTERN - Cardiovascular Exam Cardiovascular Exam: RRR - GI/Abdominal Exam GI & Abdominal Exam: Soft. absent: Distended - Neurological Exam Neurological Exam: Alert, Awake - Skin Skin Exam: Dry, Warm - Additional Findings Additional findings: Breast: R infra-mammary fold with packing in place, dry/clean. Assessment and Plan - Assessment and Plan (Free Text) Assessment: 46F with recurrent R breast abscess s/p I&D/biopsies; POD#4 Plan: - Clear for DC from surgical standpoint - DC on PO ABX as per ID recs - Cont daily packing changes at home - f/u in the office in 1 week Rand Ordoñez PGY-3 Surgery <Nitin Hoyt - Last Filed: 08/06/17 22:21> Objective - Vital Signs/Intake and Output Vital Signs (last 24 hours): Temp Pulse Resp BP Pulse Ox 98.6 F 83 18 142/95 H 98 08/06/17 06:00 08/06/17 06:00 08/06/17 06:00 08/06/17 10:28 08/06/17 10:00 - Labs Labs: 08/04/17 10:32 08/02/17 06:30 PT 12.8 SECONDS (9.4-12.5) H 11/09/17 18:38 INR 1.17 (0.93-1.08) H 08/03/17 18:38 APTT 27.3 Seconds (25.1-36.5) 08/03/17 18:38 Assessment and Plan - Assessment and Plan (Free Text) Plan: Patient was seen and examined by me. I agree with assessment and plan as per resident's note.
[2017-08-06] MEDS ORDERED: Iron Complex Polysacch 150mg Cap PO SCH (10:15)
--- NOTE | 2017-08-06 11:15 | PN ---
DATE: 08/06/2017 HISTORY OF PRESENT ILLNESS: The patient is a 46-year-old female admitted with right breast abscess. She underwent incision and drainage of the abscess. She is currently on IV antibiotics. Hemoglobin dropped to 8.2 g/dL yesterday. No fevers. No chills. No chest pain. PAST MEDICAL HISTORY: Diabetes mellitus type 2, hypertension, hyperlipidemia, septic shock in 2014, and history of renal failure. PAST SURGICAL HISTORY: Abscess drainage right breast. ALLERGIES: NO KNOWN DRUG ALLERGIES. HOME MEDICATIONS: Losartan 320 mg daily, metformin 500 twice a day, glimepiride 4 mg twice a day, amlodipine 10 mg daily, and aspirin 81 daily. PERSONAL HISTORY: No history of smoking. No history of alcohol abuse. SOCIAL HISTORY: Lives at home with boyfriend. 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 REVIEW OF SYSTEMS: As per HPI. Rest of 12-point review of systems reviewed and negative. PHYSICAL EXAMINATION: GENERAL: Comfortable in bed in no acute distress. Alert and oriented. VITAL SIGNS: Temperature 98.7, heart rate 80 per minute, blood pressure 110/70. HEENT: Mucosa, pallor positive. NECK: No lymphadenopathy. CHEST: Air entry present equal and bilateral. No added sounds. CARDIOVASCULAR: S1 and S2 normal. No murmur. No gallop. ABDOMEN: Soft and nontender. No hepatosplenomegaly. EXTREMITIES: No edema. SPINE: Nontender. SKIN: No petechiae. No rash. BREASTS: Right breast surgical dressing present. LABORATORY DATA: White count 11,000, hemoglobin 8.3, hematocrit 25.3, and platelet count 268. Glucose 191, sodium 139, potassium 3.6, and creatinine 0.9. LFTs are within normal limits. Wound cultures no growth. ASSESSMENT: Right breast abscess, severe anemia hemoglobin of 8.2, hypertension, hyperlipidemia, and diabetes mellitus type 2. PLAN: We will continue Norvasc 10 mg daily and aspirin 81 mg daily. She is on oral ciprofloxacin 750 mg q.12 hours and doxycycline 100 q.12 hours. ID following. Amaryl 4 mg p.o. b.i.d. Glucose control with current antidiabetic regimen. She is also on Levemir 25 units at bedtime, continue that. Metformin 500 mg p.o. b.i.d., Zofran 4 mg q.6 hours, and Diovan 320 mg p.o. daily. Surgery following for breast abscess. Cleared by surgery for discharge. DC home today on PO cipro, vancomycin, doxy as per ID. Lani Vieyra MD [facility]
--- NOTE | 2017-08-06 12:33 | RAD ---
HISTORY: r/o constipation COMPARISON: No prior. FINDINGS: BOWEL: Normal. No obstruction. No free air. Mild constipation noted in the left colon BONES: Normal. OTHER FINDINGS: None. IMPRESSION: Mild constipation. No evidence of SBO.
[2017-08-06 15:53] VITALS: O2SAT 98
--- NOTE | 2017-08-06 22:07 | CP.PCM.DIS ---
Provider - Provider Date of Admission: 07/31/17 17:13 Attending physician: Mina Cabral MD Primary care physician: Mina Cabral MD Time Spent in preparation of Discharge (in minutes): 60 Hospital Course - Lab Results Lab Results: Micro Results 08/02/17 20:45 Breast - Right Gram Stain - Final 08/02/17 20:45 Breast - Right Anaerobic Culture - Final NO ANAEROBES ISOLATED. 08/02/17 20:45 Breast - Right Wound Culture - Final No growth. Most Recent Lab Values WBC 11.0 10^3/ul (4.5-11.0) D 08/04/17 10:32 RBC 3.00 10^6/uL (3.5-6.1) L 08/04/17 10:32 Hgb 8.2 g/dL (12.0-16.0) L 08/04/17 10:32 Hct 25.3 % (36.0-48.0) L 08/04/17 10:32 MCV 84.3 fl (80.0-105.0) 08/04/17 10:32 MCH 27.3 pg (25.0-35.0) 08/04/17 10:32 MCHC 32.4 g/dl (31.0-37.0) 08/04/17 10:32 RDW 12.9 % (11.5-14.5) 08/04/17 10:32 Plt Count 268 10^3/uL (120.0-450.0) 08/04/17 10:32 MPV 9.9 fl (7.0-11.0) 08/04/17 10:32 Gran % 82.2 % (50.0-68.0) H 08/03/17 18:38 Lymph % (Auto) 10.9 % (22.0-35.0) L 08/03/17 18:38 Miner % (Auto) 6.4 % (1.0-6.0) H 08/03/17 18:38 Eos % (Auto) 0.4 % (1.5-5.0) L 08/03/17 18:38 Baso % (Auto) 0.1 % (0.0-3.0) 08/03/17 18:38 Gran # 11.74 (1.4-6.5) H 08/03/17 18:38 Lymph # 1.6 (1.2-3.4) 08/03/17 18:38 Miner # 0.9 (0.1-0.6) H 08/03/17 18:38 Eos # 0.1 (0.0-0.7) 08/03/17 18:38 Baso # 0.01 K/mm3 (0.0-2.0) 08/03/17 18:38 PT 12.8 SECONDS (9.4-12.5) H 08/03/17 18:38 INR 1.17 (0.93-1.08) H 08/03/17 18:38 APTT 27.3 Seconds (25.1-36.5) 08/03/17 18:38 Sodium 139 mmol/L (132-148) 08/02/17 06:30 Potassium 3.6 mmol/L (3.6-5.0) 08/02/17 06:30 Chloride 102 mmol/L (98-107) 08/02/17 06:30 Carbon Dioxide 28 mmol/L (21-33) 08/02/17 06:30 Anion Gap 13 (10-20) 08/02/17 06:30 BUN 9 mg/dL (7-21) 08/02/17 06:30 Creatinine 0.9 mg/dL (0.7-1.2) 08/02/17 06:30 Est GFR ( Amer) > 60 08/02/17 06:30 Est GFR (Non-Af Amer) > 60 08/02/17 06:30 POC Glucose (mg/dL) 193 mg/dL (65-110) H 08/06/17 12:00 Random Glucose 291 mg/dL (70-110) H 08/02/17 06:30 Calcium 8.8 mg/dL (8.4-10.5) 08/02/17 06:30 Total Bilirubin 0.5 mg/dL (0.2-1.3) 08/02/17 06:30 AST 15 U/L (14-36) 08/02/17 06:30 ALT 24 U/L (7-56) 08/02/17 06:30 Alkaline Phosphatase 87 U/L (38-126) 08/02/17 06:30 Total Protein 7.4 g/dL (5.8-8.3) 08/02/17 06:30 Albumin 3.5 g/dL (3.0-4.8) 08/02/17 06:30 Globulin 3.9 gm/dL 08/02/17 06:30 Albumin/Globulin Ratio 0.9 (1.1-1.8) L 08/02/17 06:30 - Hospital Course Hospital Course: detail note dictated 08/06/2017. Pt. being discharged home in stable condition. - Date & Time of H&P Date of H&P: 08/06/17 Time of H&P: 13:00 Discharge Exam - Head Exam Head Exam: ATRAUMATIC, NORMOCEPHALIC Discharge Plan - Discharge Medications Prescriptions: RX: Ciprofloxacin [Cipro] 750 mg PO Q12 14 Days tab RX: Doxycycline Hyclate [Doryx] 100 mg PO Q12 14 Days cap Metronidazole [Flagyl] 500 mg PO TID 10 Days tablet - Follow Up Plan Condition: GOOD Disposition: HOME/ ROUTINE Instructions: Breast Abscess Drainage (DC), Cellulitis (DC), Acute Wound Care ( DC), Abscess (GEN) Additional Instructions: Continue packing changes at home 1-2 times daily with Iodoform packing. Ok to shower without packing and replace packing after. Follow up with Dr. Olivas in 1 week, call office to make an appointment. DC home on PO ABX as per ID recs, Cipro/Doxycycline. Over the counter pain meds as needed. Referrals: Nitin Hoyt MD [Staff Provider] - Mina Cabral MD [Primary Care Provider] -
== END 2017-08-06 16:12 | disposition home or self-care (01) | DRG 584 ==
LOC: ED 10:34 → ERH 17:13 → 3RSO 18:49
PROVIDERS: ADMIT Internal Medicine; ATTEND Internal Medicine
PROC: 0H9T0ZZ Drainage of Right Breast, Open Approach (ICD-10-PCS; principal; 2017-08-04)
PROC: 0HBT0ZX Excision of Right Breast, Open Approach, Diagnostic (ICD-10-PCS; 2017-08-04)
DX: N61.1 Abscess of the breast and nipple (principal); Z68.41 Body mass index [BMI] 40.0-44.9, adult; I10 Essential (primary) hypertension; E11.9 Type 2 diabetes mellitus without complications; E78.5 Hyperlipidemia, unspecified; K59.00 Constipation, unspecified; D50.0 Iron deficiency anemia secondary to blood loss (chronic); E66.01 Morbid (severe) obesity due to excess calories; Z86.73 Personal history of transient ischemic attack (TIA), and cerebral infarction without residual deficits; Z79.84 Long term (current) use of oral hypoglycemic drugs; Z79.82 Long term (current) use of aspirin; Z79.899 Other long term (current) drug therapy

== ENCOUNTER 2018-02-04 17:03 | Observation (INO) | payer OTHER ==
[2018-02-04 17:21] VITALS: BMI 40.4
--- NOTE | 2018-02-04 17:22 | ED PDOC ---
Arrival/HPI - General Time Seen by Provider: 02/04/18 17:05 Historian: Patient - History of Present Illness Narrative History of Present Illness (Text): 02/04/18 17:22 A 47 year old female, whose past medical history includes hypertension, TIA, diabetes type 2, and UTI, presents to the emergency department complaining of pleuritic chest pain since last night. Patient reports pain worsened this morning, radiating to left arm. States she was not doing any physical activity, only sitting. Patient states she did eat today but did not vomit. Notes also experiencing nausea and slight shortness of breath. Patient denies any chills, vomiting, diarrhea, abdominal pain, diaphoresis, or any other complaints at this time. PMD: Dr. Cabral Past Medical History - Provider Review Nursing Documentation Reviewed: Yes - Infectious Disease Hx of Infectious Diseases: None - Tetanus Immunization Tetanus Immunization: Unknown - Cardiac Hx Cardiac Disorders: Yes Hx Hypertension: Yes - Pulmonary Hx Respiratory Disorders: No Hx Tuberculosis: No - Neurological Hx Neurological Disorder: Yes Hx Dizziness: Yes Hx Transient Ischemic Attacks (TIA): Yes - HEENT Hx HEENT Disorder: No Hx Macular Degeneration: No - Renal Hx Renal Disorder: Yes Hx Kidney Stones: Yes (PASSED IT) - Endocrine/Metabolic Hx Endocrine Disorders: Yes Hx Diabetes Mellitus Type 2: Yes - Hematological/Oncological Hx Blood Disorders: No Hx Unexplained Bleeding: No - Integumentary Hx Dermatological Disorder: Yes (H/O BREAST ABSCESS) Hx Squamous Cell Carcinoma: No - Musculoskeletal/Rheumatological Hx Musculoskeletal Disorders: No Hx Falls: No Hx Unsteady Gait: No - Gastrointestinal Hx Gastrointestinal Disorders: No - Genitourinary/Gynecological Hx Genitourinary Disorders: Yes (FIBROID) Hx Urinary Tract Infection: Yes - Psychiatric Hx Psychophysiologic Disorder: No Hx Sexual Abuse: No Hx Substance Use: No - Past Surgical History Past Surgical History: Unable to Obtain - Surgical History Hx Valve Replacement: No - Anesthesia Hx Anesthesia: Yes Hx Anesthesia Reactions: No Hx Malignant Hyperthermia: No - Suicidal Assessment Feels Threatened In Home Enviroment: No Family/Social History - Physician Review Nursing Documentation Reviewed: Yes Family/Social History: No Known Family HX Smoking Status: Never Smoked Hx Alcohol Use: No Hx Substance Use: No Hx Substance Use Treatment: No Allergies/Home Meds Allergies/Adverse Reactions: Allergies No Known Allergies Allergy (Verified 11/06/17 11:01) Home Medications: Home Meds Medication Instructions Recorded Confirmed amLODIPine [Norvasc] 10 mg PO DAILY 06/02/15 02/04/18 MetFORMIN [glucoPHAGE] 500 mg PO BID 06/29/15 02/04/18 Glimepiride 0 mg PO BID 07/31/17 02/04/18 Valsartan [Diovan] 0 mg PO DAILY 07/31/17 02/04/18 Dulaglutide [Trulicity] 0 mg SC 02/04/18 Review of Systems - Physician Review All systems were reviewed & negative as marked: Yes - Review of Systems Constitutional: absent: Night Sweats Respiratory: SOB (slightly) Cardiovascular: Chest Pain (pleuritic chest pain, radiating to left arm today) Gastrointestinal: Nausea. absent: Abdominal Pain, Diarrhea, Vomiting Endocrine: absent: Diaphoresis Physical Exam Vital Signs Temp Pulse Resp BP Pulse Ox 02/04/18 20:44 67 18 157/86 H 99 02/04/18 19:14 100.3 F H 68 12 154/80 H 100 02/04/18 18:25 81 157/93 H 02/04/18 17:49 76 160/102 H 02/04/18 17:17 100.4 F H 76 16 183/103 H 97 Temperature: Afebrile Blood Pressure: Normal Pulse: Regular Respiratory Rate: Normal Appearance: Positive for: Well-Appearing Pain Distress: None Mental Status: Positive for: Alert and Oriented X 3 - Systems Exam Respiratory/Chest: Present: Clear to Auscultation, Good Air Exchange. No: Respiratory Distress, Accessory Muscle Use Cardiovascular: Present: Regular Rate and Rhythm, Normal S1, S2. No: Murmurs Abdomen: No: Tenderness, Distention, Peritoneal Signs Upper Extremity: Present: Normal Inspection. No: Cyanosis, Edema Lower Extremity: Present: Normal Inspection. No: Edema Neurological: Present: GCS=15, CN II-XII Intact, Speech Normal Skin: Present: Warm, Dry, Normal Color. No: Rashes Psychiatric: Present: Alert, Oriented x 3, Normal Insight, Normal Concentration Medical Decision Making ED Course and Treatment: 02/04/18 17:25 Impression: 47 year old female with pleuritic chest pain. Plan: -- EKG -- Chest X-ray -- Labs -- Toprol -- Nitroglycerin -- Urinalysis -- O2 Nasal Cannula -- Reassess and disposition Prior Visits: Notes and results from previous visits were reviewed. Patient was last seen in the emergency department on 10/02/2017 for diffuse abdominal pain with associated mild nausea. Patient was d/c home. Progress Notes: EKG: Ordered, reviewed, and independently interpreted the EKG. Rate : 74 BPM Rhythm : NSR Interpretation : Left axis deviation. No ST-segment elevations or depressions, no T-wave inversions, normal intervals. Comparison : No previous EKG for comparison. - Lab Interpretations Lab Results: 02/04/18 19:25 02/04/18 19:25 Lab Results 02/04/18 19:25: Sodium 141, Potassium 3.8, Chloride 102, Carbon Dioxide 28, Anion Gap 15, BUN 12, Creatinine 0.7, Est GFR ( Amer) > 60, Est GFR (Non- Af Amer) > 60, Random Glucose 267 H, Calcium 9.3, Magnesium 1.4 L, Total Bilirubin 0.1 L, AST 19, ALT 17, Alkaline Phosphatase 83, Lactate Dehydrogenase 300 L, Total Creatine Kinase 43, Troponin I < 0.01, Total Protein 7.6, Albumin 3.7, Globulin 4.0, Albumin/Globulin Ratio 0.9 L 02/04/18 19:25: WBC 8.8 D, RBC 3.97, Hgb 10.1 L, Hct 31.0 L, MCV 78.1 L, MCH 25.4, MCHC 32.6, RDW 14.9 H, Plt Count 338, MPV 9.6, Gran % 59.3, Lymph % (Auto ) 32.0, Taliaferro % (Auto) 7.5 H, Eos % (Auto) 1.0 L, Baso % (Auto) 0.2, Gran # 5.22 , Lymph # (Auto) 2.8, Taliaferro # (Auto) 0.7 H, Eos # (Auto) 0.1, Baso # (Auto) 0.02 02/04/18 18:26: Urine Color Yellow, Urine Appearance Sl cloudy, Urine pH 7.0, Ur Specific Elkins 1.025, Urine Protein 100 H, Urine Glucose (UA) 250 H, Urine Ketones Negative, Urine Blood Negative, Urine Nitrate Negative, Urine Bilirubin Negative, Urine Urobilinogen 0.2, Ur Leukocyte Esterase Trace H, Urine RBC 0 - 2 , Urine WBC 15 - 20, Ur Epithelial Cells 6 - 8, Urine Bacteria Few - RAD Interpretation Radiology Orders: 02/04/18 17:23 CHEST PORTABLE [RAD] Stat - Medication Orders Current Medication Orders: Discontinued Medications Acetaminophen (Tylenol 325mg Tab) 650 mg PO STAT STA Stop: 02/04/18 19:29 Last Admin: 02/04/18 19:45 Dose: 650 mg Ceftriaxone Sodium (Rocephin 1 Gram Ivpb) 1 gm in 100 mls @ 200 mls/hr IVPB STAT STA PRN Reason: Protocol Stop: 02/04/18 20:03 Last Admin: 02/04/18 19:44 Dose: 200 mls/hr eMAR Start Stop Document 02/04/18 19:44 CNR (Rec: 02/04/18 19:45 CNR [id number]) Intravenous Solution Start Date 02/04/18 Start Time 19:44 End Date 02/04/18 End time 20:14 Total Infusion Time 30 Metoprolol Succinate (Toprol Xl) 25 mg PO STAT STA Stop: 02/04/18 17:27 Last Admin: 02/04/18 17:49 Dose: 25 mg MAR Pulse and Blood Pressure Document 02/04/18 17:49 GMI (Rec: 02/04/18 17:49 GMI [id number]) Pulse Pulse Rate (60-90 beats/min) 76 Blood Pressure Blood Pressure (100/60-150/90 mm Hg) 160/102 Nitroglycerin (Nitrostat Sl Tab) 0.4 mg SL STAT STA Stop: 02/04/18 17:24 Last Admin: 02/04/18 17:49 Dose: 0.4 mg - Scribe Statement The provider has reviewed the documentation as recorded by the Morgan Lowery Provider Scribe Attestation: All medical record entries made by the Rajendraibjeremiah were at my direction and personally dictated by me. I have reviewed the chart and agree that the record accurately reflects my personal performance of the history, physical exam, medical decision making, and the department course for this patient. I have also personally directed, reviewed, and agree with the discharge instructions and disposition. Disposition/Present on Arrival - Present on Arrival Any Indicators Present on Arrival: Yes History of DVT/PE: No History of Uncontrolled Diabetes: Yes Urinary Catheter: No History Surgical Site Infection Following: None - Disposition Have Diagnosis and Disposition been Completed?: Yes Diagnosis: Chest pain, Urinary tract infection Disposition: HOSPITALIZED Disposition Time: 21:04 Patient Plan: Admission Condition: GOOD Discharge Instructions (ExitCare): Chest Pain (ED) Referrals: PCP,NO [Primary Care Provider] - Follow up with primary
[2018-02-04] MEDS ORDERED: Metoprolol Succinate 25 mg XL Tab PO STA (17:26)
[2018-02-04 18:31] LABS: URINE BILIRUBIN NEGATIVE (NEGATIVE); URINE BLOOD NEGATIVE (NEGATIVE); URINE GLUCOSE (UA) 250 mg/dL (NEGATIVE); URINE LEUKOCYTE ESTERASE TRACE Leu/uL (NEGATIVE); URINE PROTEIN 100 mg/dL (<30 mg/dL); URINE UROBILINOGEN 0.2 E.U./dL (<1 E.U./dL)
[2018-02-04 18:32] LABS: URINE COLOR YELLOW (YELLOW)
[2018-02-04 18:41] LABS: URINE APPEARANCE SL CLOUDY (CLEAR); URINE BACTERIA FEW (NEG); URINE RBC 0 - 2 /hpf (0-2); URINE WBC 15 - 20 /hpf (0-6)
[2018-02-04] MEDS ORDERED: cefTRIAXone 1 gm 1 GM/100 ML BAG IVPB STA (19:34)
[2018-02-04 19:41] LABS: BASO # 0.02 K/mm3 (0.0-2.0); BASO % 0.2 % (0.0-3.0); EOS # 0.1 (0.0-0.7); GRAN # 5.22 (1.4-6.5); GRAN % 59.3 % (50.0-68.0); HEMOGLOBIN 10.1 g/dL (12.0-16.0); LYMPH # 2.8 (1.2-3.4); MEAN CELL VOLUME 78.1 fl (80.0-105.0); MEAN CORPUSCULAR HEMOGLOBIN 25.4 pg (25.0-35.0); MEAN CORPUSCULAR HGB CONC 32.6 g/dl (31.0-37.0); MEAN PLATELET VOLUME 9.6 fl (7.0-11.0); MONO # 0.7 (0.1-0.6); MONO % 7.5 % (1.0-6.0); RBC 3.97 10^6/uL (3.5-6.1); RED CELL DISTRIBUTION WIDTH 14.9 % (11.5-14.5); WHITE BLOOD COUNT 8.8 10^3/ul (4.5-11.0)
[2018-02-04 19:46] LABS: ALB/GLOB RATIO 0.9 (1.1-1.8); ALBUMIN 3.7 g/dL (3.0-4.8); ALT/SGPT 17 U/L (7-56); AST/SGOT 19 U/L (14-36); BLOOD UREA NITROGEN 12 mg/dL (7-21); CALCIUM 9.3 mg/dL (8.4-10.5); GFR AFRICAN-AMERICAN > 60; GFR NON-AFRICAN AMERICAN > 60
[2018-02-04 19:57] LABS: TROPONIN I < 0.01 ng/mL
[2018-02-04] MEDS ORDERED: Magnesium Sulfate 1 gm in D5W 1 GM/100 ML BAG IV ONE (21:24)
[2018-02-04] MEDS: Naproxen 550 mg Tab PO SCH (21:58)
[2018-02-04] MEDS: Insulin Reg-HIGH-Coverage SC SCH (23:00)
--- NOTE | 2018-02-05 01:52 | HP ---
HISTORY OF PRESENT ILLNESS: The patient is a 47-year-old, came to emergency room because of chest pain, pressure. Chest pain started last night, has been getting worse with taking deep breath, also have some element of increased frequent urination. She said when she woke up this morning, she was still having pain that was radiating to the left arm and has no relation with exertion; however, certain movement make it worse. No history of nausea or vomiting. No diarrhea. No hemoptysis, no hematemesis. No dizziness. No headaches. Does complain of mild shortness of breath, though no fever or chills. PAST MEDICAL HISTORY: 1. Significant for uncontrolled diabetes. She is very noncompliant with her medications. 2. History of hypertension. 3. Hyperlipidemia. 4. Obesity. 5. Multiple admission because of under breast abscess. 6. Jjt-vejzskr-polekabja diabetes. ALLERGIES: SHE IS NOT ALLERGIC TO ANY MEDICATION. MEDICATION AT HOME: She is on amlodipine 10 mg daily, Diovan 320 daily, metformin 500 twice a day, glimepiride 4 mg twice a day, Trulicity 1.5 mg every weekly. SOCIAL HISTORY: Denies smoking, drinking or alcohol use. Social here and there. She is single, lives with her boyfriend. PHYSICAL EXAMINATION: GENERAL: She is awake, alert, oriented, communicative. VITAL SIGNS: She has temperature of 100.3, pulse 60, respirations 12, blood pressure 154/80. LUNGS: Bilateral good airflow. No rhonchi or crackle. HEART: S1 and S2 audible. ABDOMEN: Soft. Nontender. No rebound. No guarding. NEUROLOGICAL: Patient is awake, alert, oriented, and communicative. LABORATORY DATA: WBC is 8.8, hemoglobin 10, hematocrit 31, platelet of 338. Chemistry: Sodium 141, potassium 3.8, chloride 102, CO2 of 28, BUN 12, creatinine 0.7, blood sugar of 267. Magnesium 1.4. LFTs are within normal limits. LDH is 300. Urinalysis shows positive glucose and trace leukocyte, 15 to 20 wbc's. ASSESSMENT: 1. Chest pain, probably secondary to uncontrolled hypertension. Patient had stress test done in 08/2016 and was unremarkable. 2. Noninsulin-dependent diabetes. 3. Hypertension. 4. Morbid obesity. 5. Noncompliance. PLAN: Patient will be admitted. We will empirically start Rocephin. Follow up cardiac enzymes. Monitor blood pressure closely. Monitor blood sugar closely. Consult with . Mina Cabral MD
[2018-02-05] MEDS: Pantoprazole 40 mg EC Tab PO SCH (06:30)
[2018-02-05 06:31] LABS: BASO # 0.04 K/mm3 (0.0-2.0); BASO % 0.4 % (0.0-3.0); EOS # 0.1 (0.0-0.7); GRAN # 5.31 (1.4-6.5); GRAN % 56.8 % (50.0-68.0); HEMOGLOBIN 10.9 g/dL (12.0-16.0); LYMPH # 3.4 (1.2-3.4); LYMPH % 36.2 % (22.0-35.0); MEAN CORPUSCULAR HEMOGLOBIN 25.5 pg (25.0-35.0); MEAN CORPUSCULAR HGB CONC 32.6 g/dl (31.0-37.0); MEAN PLATELET VOLUME 9.7 fl (7.0-11.0); MONO # 0.5 (0.1-0.6); MONO % 5.6 % (1.0-6.0); RBC 4.28 10^6/uL (3.5-6.1); RED CELL DISTRIBUTION WIDTH 15.2 % (11.5-14.5); WHITE BLOOD COUNT 9.3 10^3/ul (4.5-11.0)
[2018-02-05 06:55] LABS: ALB/GLOB RATIO 0.9 (1.1-1.8); ALBUMIN 3.7 g/dL (3.0-4.8); ALT/SGPT 16 U/L (7-56); AST/SGOT 17 U/L (14-36); BLOOD UREA NITROGEN 11 mg/dL (7-21); CALCIUM 9.3 mg/dL (8.4-10.5); GFR AFRICAN-AMERICAN > 60; GFR NON-AFRICAN AMERICAN > 60
[2018-02-05 07:36] LABS: HDL CHOLESTEROL 38 mg/dL (29-60)
[2018-02-05 07:48] LABS: LDL CHOLESTEROL 86 mg/dL (0-129); TROPONIN I < 0.01 ng/mL
--- NOTE | 2018-02-05 08:41 | CARD ---
APPROVED REPORT EKG Measurement Heart [id number] <Conclusion> Normal sinus rhythm Improved repolarization c/w ECG 08/05/17
[2018-02-05 08:52] VITALS: RESP 20
--- NOTE | 2018-02-05 09:07 | RAD ---
HISTORY: chest pain COMPARISON: 07/31/2017 FINDINGS: LUNGS: No active pulmonary disease. PLEURA: No significant pleural effusion identified, no pneumothorax apparent. CARDIOVASCULAR: Normal. OSSEOUS STRUCTURES: No significant abnormalities. VISUALIZED UPPER ABDOMEN: Normal. OTHER FINDINGS: None. IMPRESSION: No active disease.
[2018-02-05] MEDS: Naproxen 550 mg Tab PO SCH ×2 (09:26→18:31)
[2018-02-05] MEDS: Insulin Reg-HIGH-Coverage SC SCH ×4 (09:28→22:28)
[2018-02-05] MEDS ORDERED: cefTRIAXone 1 gm 1 GM/100 ML BAG IVPB SCH (10:00)
--- NOTE | 2018-02-05 16:50 | CARD ---
APPROVED REPORT EXAM: Two-dimensional and M-mode echocardiogram with Doppler and color Doppler. INDICATION Chest Pain 2D DIMENSIONS Left Atrium (2D)4.4 (1.6-4.0cm)IVSd1.2 (0.7-1.1cm) LVDd4.5 (3.9-5.9cm)PWd1.1 (0.7-1.1cm) LVDs3.0 (2.5-4.0cm)FS (%) 32.8 % LVEF (%)61.5 (>50%) M-Mode DIMENSIONS Aortic Root3.10 (2.2-3.7cm)Aortic Cusp Exc.1.80 (1.5-2.0cm) Aortic Valve AoV Peak Llzzivjr802.0cm/sAoV VTI42.9cmAO Peak GR.19mmHg LVOT Peak Ydlodsqp678.0cm/sLVOT VTI29.60cmAO Mean GR.10mmHg AI P 1/2 [id number] Mitral Valve MV E Yeiebuwr25.8cm/sMV A Qilkioxd88.8cm/sE/A ratio1.0 TDI Lateral E' Peak V10.90cm/sMedial E' Peak V9.36cm/sE/Lateral E'7.9 E/Medial E'9.2 Pulmonary Valve PV Peak Oglhugai70.2cm/sPV Peak Grad.1mmHg Tricuspid Valve TR Peak Pkuivmop232mi/sRAP [id number] Peak Gr.26mmHg [id number] LEFT VENTRICLE The left ventricle is normal size. There is borderline to mild concentric left ventricular hypertrophy. The left ventricular function is normal.EF-60-65% There is normal LV segmental wall motion. Transmitral Doppler flow pattern is Grade III-reversible restrictive diastolic dysfunction. No left ventricle thrombus noted on this study. There is no ventricular septal defect visualized. There is no left ventricular aneurysm. There is no mass noted in the left ventricle. RIGHT VENTRICLE The right ventricle is normal size. There is normal right ventricular wall thickness. The right ventricular systolic function is normal. ATRIA The left atrium is mildly dilated. The right atrium size is normal. The interatrial septum is intact with no evidence for an atrial septal defect. AORTIC VALVE The aortic valve is thickened but opens well. There is mild to moderate aortic regurgitation. There is no aortic valvular stenosis. There is no aortic valvular vegetation. MITRAL VALVE The mitral valve is thickened but opens well. Mitral regurgitation is mild. There is no mitral valve stenosis. There is no evidence of mitral valve prolapse. TRICUSPID VALVE The tricuspid valve leaflets are thickened , but open well. There is mild tricuspid regurgitation.RVSP-36 mmof hg. There is no tricuspid valve stenosis. There is no tricuspid valve prolapse or vegetation. PULMONIC VALVE The pulmonary valve is normal in structure. There is trace pulmonic valvular regurgitation. There is no pulmonic valvular stenosis. GREAT VESSELS The aortic root is normal in size. The ascending aorta is normal in size. The pulmonary artery is normal. The IVC is normal in size and collapses >50% with inspiration. PERICARDIAL EFFUSION There is no pleural effusion. There is no pericardial effusion. <Conclusion> The left ventricle is normal size. There is borderline to mild concentric left ventricular hypertrophy. The left ventricular function is normal.EF-60-65% There is mild to moderate aortic regurgitation. Mitral regurgitation is mild. There is mild tricuspid regurgitation.RVSP-36 mmof hg. The IVC is normal in size and collapses >50% with inspiration. There is no pericardial effusion. No Vegetation or thrombus noted.
--- NOTE | 2018-02-05 19:12 | CON ---
DATE: 02/05/2018 SERVICE: Cardiology. REASON FOR THE CONSULTATION: Cardiac evaluation for chest pain. BRIEF CLINICAL HISTORY: This is a 47-year-old morbidly obese female with increased body mass index to 40 kg/m2, diabetes, hypertension, hyperlipidemia. Came in with complaint of chest pain for 2 days with tenderness in the chest. History of hypertension, hyperlipidemia in the past. The patient says that 3 days off and on the patient has chest pain, so decided to come to the ER. The patient also has history of multiple breast abscesses in the past and underneath the left breast with abscess, there is also tenderness too. The chest pain currently for the patient is left sided in the precordial region and this is also tender. PAST HISTORY: Significant for diabetes; hypertension; hyperlipidemia; obesity; multiple admissions because of underneath the breast, there is abscess; type 2 diabetes, very noncompliant to the medications as per medical record. SOCIAL HISTORY: Denies any history of alcohol abuse. FAMILY HISTORY: Significant for coronary artery disease in father and had coronary artery bypass at the age of 55. ALLERGIES: NO KNOWN DRUG ALLERGY. CURRENT MEDICATIONS: The patient is taking amlodipine 10 mg daily, Diovan 320 mg daily, metformin 500 mg twice, glimepiride 4 mg daily, Trulicity 1.5 mg every week injection. Admitting blood pressure 183/103. Previous cardiac workup as follows, the patient had echocardiography on 07/28/2016, that shows normal chamber size, ejection fraction of 65% to 70%. Mild mitral regurgitation, trace to mild tricuspid regurgitation, RV systolic pressure 32. The patient had also a stress test on 08/25/2016, that shows normal myocardial perfusion study, ejection fraction of 75%. REVIEW OF SYSTEMS: As per HPI. PHYSICAL EXAMINATION: VITAL SIGNS: Temperature afebrile, yesterday patient had 100.4 fever; heart rate 68, blood pressure 137/68. HEENT: PERRLA. Extraocular muscles intact. NECK: Supple. No carotid bruit. No thyromegaly. CHEST: Clear to auscultation. HEART: S1 and S2, regular. ABDOMEN: Soft. EXTREMITIES: Clubbing and cyanosis negative. LABORATORY DATA: EKG showed normal sinus rhythm with heart rate 72. No acute ST-T changes noted. Blood workup as follows; WBC 8.8, hemoglobin 10.3, hematocrit 31, platelet count 338. Chemistry shows sodium 141, potassium 3.8, chloride 102, carbon dioxide 28, anion gap of 15. BUN 12, creatinine 0.7. Troponin 0.01. IMPRESSION: Morbid obesity, diabetes, hypertension, hyperlipidemia, noncompliance with medication. Admitting blood pressure of 183/105. Increased body mass index, atypical chest pain, tenderness, history of multiple breast abscess. History of last stress test on 08/25/2016, is essentially normal myocardial perfusion study. History of last echocardiogram on 07/28/2016, that shows normal chamber size, ejection fraction 65%. There was mild aortic regurgitation, trace mitral regurgitation, trace to mild tricuspid regurgitation. RECOMMENDATIONS: We will add third set of troponin, aggressive control of blood pressure. Continue NSAID and resume antihypertensive medication. Also add on Norvasc 5 mg to control the better blood pressure if need to be. For now, continue valsartan. We will get echo to assess LV function. Add third set of troponin, CPK, troponin, and stress test as outpatient because of multiple risk factors. We will follow with you. If the troponin becomes negative, we can discontinue telemetry and a stress test as outpatient. Thank you, Dr. Cabral for providing us the opportunity in taking care of Greg Stewart. Kirk Reyes MD
[2018-02-05] MEDS ORDERED: cefTRIAXone 1 gm 1 GM/100 ML BAG IVPB ONE (19:29)
--- NOTE | 2018-02-05 22:42 | PN ---
DATE: 02/05/2018 SUBJECTIVE: The patient is a 47-year-old, seen and examined, still has left chest pain radiating to the left arm and complain of left arm numbness. It is more on movement and taking deep breath. No weakness or dizziness. PHYSICAL EXAMINATION: VITAL SIGNS: She is afebrile, pulse . LUNGS: Bilateral fair airflow. No rhonchi or crackle. HEART: S1 and S2 audible. ABDOMEN: Soft, nontender. No rebound. No guarding. NEUROLOGICAL: Patient is awake, alert, oriented. Able to communicate. EXTREMITIES: Bilateral leg, no edema. LABORATORY DATA: WBC is 9.3, hemoglobin 10.9, hematocrit 33.4 and platelet of 347. Chemistry: Blood sugar is 202. ASSESSMENT: 1. Chest pain, seems to be noncardiac for now. 2. Uncontrolled diabetes. 3. Uncontrolled hypertension. 4. Morbid obesity. 5. Pyuria. PLAN: I will increase the glimepiride to 4 mg twice a day, naproxen will be continued. We will continue her on aspirin 81 daily. Continue Rocephin. I will discuss with the carpentry instructor and her echocardiogram seems to be stable except tricuspid regurgitation. No pericardial effusion. No vegetation, no thrombus seen. So, plan is continue on current medications. Monitor blood sugar. Monitor blood pressure. Currently, her blood pressure seems to be under good control. Out of bed to chair. Physical therapy has been requested. We will discuss with carpentry instructor and make disposition plan in the morning if the patient remains stable. Mina Cabral MD
[2018-02-06] MEDS: Pantoprazole 40 mg EC Tab PO SCH (05:55)
--- NOTE | 2018-02-06 07:30 | CP.PCM.PN ---
Subjective - Date & Time of Evaluation Date of Evaluation: 02/06/18 Time of Evaluation: 06:50 - Subjective Subjective: Awake, alert, denies chest pain, denies shortness of breath Reason for consultation and follow up: Cardiac evaluation, pleuritic chest pain , hypertension, TIA, diabetes, obese Seen and examined by me and Dr. Reyes Objective - Vital Signs/Intake and Output Vital Signs (last 24 hours): Temp Pulse Resp BP Pulse Ox 98.5 F 78 20 142/91 H 98 02/05/18 17:51 02/05/18 17:51 02/05/18 17:51 02/05/18 17:51 02/05/18 17:51 - Medications Medications: Current Medications Acetaminophen (Tylenol 325mg Tab) 650 mg PO Q6H PRN PRN Reason: Fever >100.4 F Amlodipine Besylate (Norvasc) 10 mg PO DAILY [facility] Last Admin: 02/05/18 09:29 Dose: 10 mg Aspirin (Aspirin Chewable) 81 mg PO DAILY [facility] Last Admin: 02/05/18 09:28 Dose: 81 mg Glimepiride (Amaryl) 4 mg PO BID [facility] Last Admin: 02/05/18 18:31 Dose: 4 mg Ceftriaxone Sodium (Rocephin 1 Gram Ivpb) 1 gm in 100 mls @ 100 mls/hr IVPB DAILY [facility] PRN Reason: Protocol Last Admin: 02/05/18 09:30 Dose: 100 mls/hr Insulin Human Regular (Humulin R High) 0 units SC ACHS [facility] PRN Reason: Protocol Last Admin: 02/05/18 22:28 Dose: Not Given Naproxen (Anaprox Ds) 550 mg PO BID [facility] Last Admin: 02/05/18 18:31 Dose: 550 mg Ondansetron HCl (Zofran Inj) 4 mg IVP Q6H PRN PRN Reason: Nausea/Vomiting Pantoprazole Sodium (Protonix Ec Tab) 40 mg PO 0630 [facility] Last Admin: 02/06/18 05:55 Dose: 40 mg Valsartan (Diovan) 320 mg PO DAILY [facility] Last Admin: 02/05/18 09:26 Dose: 320 mg - Labs Labs: 02/05/18 06:00 02/05/18 06:00 - Constitutional Appears: No Acute Distress - Eye Exam Eye Exam: Normal appearance - ENT Exam ENT Exam: Mucous Membranes Moist - Respiratory Exam Respiratory Exam: Clear to Ausculation Bilateral, NORMAL BREATHING PATTERN - Cardiovascular Exam Cardiovascular Exam: +S1, +S2 - GI/Abdominal Exam GI & Abdominal Exam: Soft, Normal Bowel Sounds - Extremities Exam Extremities Exam: Normal Capillary Refill - Neurological Exam Neurological Exam: Alert, Awake, Oriented x3 - Psychiatric Exam Psychiatric exam: Normal Affect, Normal Mood - Skin Skin Exam: Intact, Normal Color, Warm Assessment and Plan - Assessment and Plan (Free Text) Assessment: A 47 year old female, who came in to the ER due to pleuritic chest pain. History of hypertension, TIA, diabetes type 2, and UTI, morbidly obese. non compliant with medications, uncontrolled hypertension. Plan: ECHO done, LVEF 60-65%, moderate AR, Mild TR Troponin normal Out patient Stress test Blood pressure under control On Norvasc 10 mg daily, ASA 81 mg daily, Diovan 320 mg daily Continue current medications Continue current treatment Will follow up Plan and treatment discussed with Dr. Reyes
[2018-02-06 08:23] VITALS: BP 146/84; PULSE 61; TEMP 97.9; O2SAT 97
[2018-02-06] MEDS: Insulin Reg-HIGH-Coverage SC SCH (08:52)
[2018-02-06] MEDS ORDERED: Cefpodoxime (Vantin) 200 mg Tab PO SCH (10:00)
[2018-02-06] MEDS: Naproxen 550 mg Tab PO SCH (10:16)
--- NOTE | 2018-02-06 21:01 | DS ---
HISTORY OF PRESENT ILLNESS: The patient is 47 years old, seen and examined. Denies any chest pain. Mild shortness of breath on walking. Eating and tolerating. No nausea or vomiting. PHYSICAL EXAMINATION: VITAL SIGNS: She is afebrile, pulse 61, respirations 20, blood pressure 146/84. LUNGS: Bilateral good airflow. No rhonchi or crackle. HEART: S1 and S2 audible. ABDOMEN: Soft, obese. Nontender. No rebound. No guarding. NEUROLOGIC: She is awake, alert, oriented, communicative, ambulatory. LABORATORY EXAM: Blood sugar is 170. Three sets of troponins are negative. Her echocardiogram is left ventricle normal size, ejection fraction 60-67%. She has mild to moderate aortic regurg, mild mitral regurg, there is mild tricuspid regurg. Inferior vena cava is normal in size. ASSESSMENT: 1. Atypical chest pain. 2. Probably peptic ulcer disease. 3. Hypertension. 4. Hyperlipidemia. 5. [id number] diabetes. PLAN: The patient is being discharged home. She is stable. She has scheduled stress test as outpatient on 02/14/2018. She will follow up in the office in 2 weeks. Mina Cabral MD
== END 2018-02-06 13:52 | disposition home or self-care (01) ==
LOC: ED 17:03 → ERH 21:05 → INTOOBSV 21:05 → ERH 21:17 → 3RNO 23:53
PROVIDERS: ADMIT Internal Medicine; ATTEND Internal Medicine
DX: R07.81 Pleurodynia (principal); N39.0 Urinary tract infection, site not specified; E11.9 Type 2 diabetes mellitus without complications; I10 Essential (primary) hypertension; E78.5 Hyperlipidemia, unspecified; E66.01 Morbid (severe) obesity due to excess calories; Z91.19 Patient's noncompliance with other medical treatment and regimen; Z91.14 Patient's other noncompliance with medication regimen; Z79.84 Long term (current) use of oral hypoglycemic drugs; Z86.73 Personal history of transient ischemic attack (TIA), and cerebral infarction without residual deficits; Z82.49 Family history of ischemic heart disease and other diseases of the circulatory system
CPT/HCPCS: 36415; 71045; 80053; 80061; 81001; 82550; 82948; 83036; 83615; 83735; 84443; 84484; 85025; 87086; 93005; 93306; 96365; 97116; 97161; 99285; G0378; G8978; G8979; J0694; J0696; J3475

== ENCOUNTER 2018-05-16 12:13 | Emergency (ER) | payer OTHER ==
[2018-05-16 12:13] VITALS: BMI 40.5
[2018-05-16 12:47] VITALS: TEMP 99.1
[2018-05-16 12:49] VITALS: RESP 18
--- NOTE | 2018-05-16 13:15 | ED PDOC ---
Arrival/HPI - General Chief Complaint: Abnormal Skin Integrity Time Seen by Provider: 05/16/18 13:05 Historian: Patient - History of Present Illness Narrative History of Present Illness (Text): 05/16/18 13:15 Patient is a 47 year old female whose past medical history includes breast abscess, sepsis, hypertension, and diabetes, who presents to the Emergency department complaining of an abscess with associated pain on her right groin area. Patient reports that she first noticed the abscess approximately 1 week ago, and notes having intermittent fevers. She denies having a furuncle, ingrown hair, or recently shaving the area prior to the abscess formation. Yesterday, she found her temperature to be greater than 100F yesterday, and has been taking Tylenol for the fever. Yesterday she started feeling nauseated, but denies any shortness of breath or vomiting. Patient states that the area around her abscess is erythematous and febrile to touch. She hasn't taken any antibiotics and currently rates the severity of her pain a 8/10. She denies any history of cysts around her axilla. Of note patient's PMD has seen the patient at bedside. Patient denies cough, shortness of breath, chest pain, dyspnea on exertion, abdominal pain, vomiting, diarrhea, urinary changes, back pain, neck pain, headache, dizziness, or any other complaint. PMD: Time/Duration: 1 week Symptom Onset: Sudden Symptom Course: Unchanged Severity Level: 8 Context: Home Past Medical History - Provider Review Nursing Documentation Reviewed: Yes - Travel History Have you recently traveled outside [place] w/in the past 3 mons?: No - Infectious Disease Hx of Infectious Diseases: None - Tetanus Immunization Tetanus Immunization: Unknown - Cardiac Hx Cardiac Disorders: Yes Hx Hypertension: Yes - Pulmonary Hx Respiratory Disorders: No Hx Tuberculosis: No - Neurological Hx Neurological Disorder: Yes Hx Dizziness: Yes Hx Transient Ischemic Attacks (TIA): Yes - HEENT Hx HEENT Disorder: No Hx Macular Degeneration: No - Renal Hx Renal Disorder: Yes Hx Kidney Stones: Yes - Endocrine/Metabolic Hx Endocrine Disorders: Yes Hx Diabetes Mellitus Type 2: Yes - Hematological/Oncological Hx Blood Disorders: No Hx Unexplained Bleeding: No - Integumentary Hx Dermatological Disorder: Yes (H/O BREAST ABSCESS) Hx Squamous Cell Carcinoma: No - Musculoskeletal/Rheumatological Hx Musculoskeletal Disorders: No - Gastrointestinal Hx Gastrointestinal Disorders: No - Genitourinary/Gynecological Hx Genitourinary Disorders: Yes (FIBROID) Hx Urinary Tract Infection: Yes - Psychiatric Hx Psychophysiologic Disorder: No Hx Sexual Abuse: No Hx Substance Use: No - Past Surgical History Past Surgical History: Unable to Obtain - Surgical History Hx Valve Replacement: No Other/Comment: I&D OF ABSCESS - Anesthesia Hx Anesthesia: Yes Hx Anesthesia Reactions: No Hx Malignant Hyperthermia: No - Suicidal Assessment Feels Threatened In Home Enviroment: No Family/Social History - Physician Review Nursing Documentation Reviewed: Yes Family/Social History: No Known Family HX Smoking Status: Never Smoked Hx Alcohol Use: No Hx Substance Use: No Hx Substance Use Treatment: No Allergies/Home Meds Allergies/Adverse Reactions: Allergies No Known Allergies Allergy (Verified 05/16/18 12:41) Home Medications: Home Meds Medication Instructions Recorded Confirmed amLODIPine [Norvasc] 10 mg PO DAILY 06/02/15 05/16/18 MetFORMIN [glucoPHAGE] 500 mg PO BID 06/29/15 05/16/18 Glimepiride 0 mg PO BID 07/31/17 05/16/18 Valsartan [Diovan] 0 mg PO DAILY 07/31/17 05/16/18 Dulaglutide [Trulicity] 0 mg SC QWK 02/04/18 05/16/18 Review of Systems - Physician Review All systems were reviewed & negative as marked: Yes - Review of Systems Constitutional: Fevers Respiratory: absent: SOB, Cough Cardiovascular: absent: Chest Pain, LUNA Gastrointestinal: Nausea. absent: Abdominal Pain, Diarrhea, Vomiting Genitourinary Female: absent: Urine Output Changes Musculoskeletal: absent: Back Pain, Neck Pain Skin: Abscess Neurological: absent: Headache, Dizziness Physical Exam Vital Signs Reviewed: Yes Vital Signs Temp Pulse Resp BP Pulse Ox 05/16/18 19:48 85 18 136/69 99 05/16/18 17:26 85 18 133/76 98 05/16/18 16:00 75 18 132/75 96 05/16/18 14:44 79 18 134/85 96 05/16/18 12:49 99.1 F 86 18 136/92 H 95 05/16/18 12:42 99.1 F 86 16 136/92 H 94 L Temperature: Afebrile Blood Pressure: Normal Pulse: Regular Respiratory Rate: Normal Appearance: Positive for: Well-Appearing Mental Status: Positive for: Alert and Oriented X 3 - Systems Exam Head: Present: Atraumatic, Normocephalic Pupils: Present: PERRL Extroacular Muscles: Present: EOMI Conjunctiva: Present: Normal Mouth: Present: Moist Mucous Membranes Neck: Present: Normal Range of Motion Respiratory/Chest: Present: Clear to Auscultation, Good Air Exchange. No: Respiratory Distress, Accessory Muscle Use Cardiovascular: Present: Regular Rate and Rhythm, Normal S1, S2. No: Murmurs Abdomen: Present: Other (Obese). No: Tenderness, Distention, Peritoneal Signs Back: Present: Normal Inspection Upper Extremity: Present: Normal Inspection. No: Cyanosis, Edema Lower Extremity: Present: Normal Inspection. No: Edema Neurological: Present: GCS=15, CN II-XII Intact, Speech Normal Skin: Present: Warm, Dry, Erythematous (mass toward right groin), Induration ( 2.5x2.5 cm indurated mass noted toward right groin. Tender to palpation. No purulent discharge, and warm to touch.). No: Rashes Psychiatric: Present: Alert, Oriented x 3, Normal Insight, Normal Concentration Medical Decision Making ED Course and Treatment: 05/16/18 13:39 Impression: Patient is a 47 year old female who presents to the Emergency department complaining of an abscess on her groin that started 1 week ago. Differential Diagnosis included but are not limited to: Abscess Hidradenitis Suppurativa Necrotizing Fasciitis Plan: -- Abdominal and Pelvic CT with IV contrast -- Labs -- Blood work -- EKG -- Chest X-ray -- Blood culture -- IV fluids -- Vancomycin -- Reassess and disposition Prior Visits: Notes and results from previous visits were reviewed. Progress Notes: 05/16/18 14:[address] Cabral, who is aware of patient and requests I&D. requested that Dr. Hoyt be consulted if surgical consult is needed. Will wait on labs prior to consulting surgeon. EKG shows NSR at [address] elevations. Normal axis and intervals. Interpreted by me. 05/16/18 17:48 CT a/p unremarkable for localized abscess, but reveals fibrous uterus. Spoke to surgery resident who will come down to evaluate the patient in preparation for I & D. 05/16/18 18:46 Spoke to , who agrees with ED management to discharge patient home with antibiotics after she undergoes I&D. residential assistant currently at bedside. 05/16/18 19:40 I&D performed by surgical garment assembler, which was supervised by me. Wound packing applied. Patient advised to take oral antibiotics and follow up with her PMD. Scripts provided. She is stable for discharged. - Lab Interpretations Microbiology Results: Microbiology Results 05/16/18 15:00 Blood Blood Culture - Preliminary NO GROWTH AFTER 4 DAYS 05/16/18 14:30 Blood Blood Culture - Preliminary NO GROWTH AFTER 4 DAYS 05/16/18 19:56 Abdomen Gram Stain - Final 05/16/18 19:56 Abdomen Wound Culture - Final Raoultella Ornithinolyt[facility] Lab Results: 05/16/18 15:00 05/16/18 15:00 Lab Results 05/16/18 15:00: Beta HCG, Quant < 2.39 05/16/18 15:00: PT 11.4, INR 1.00, APTT 26.0 05/16/18 15:00: Sodium 141, Potassium 3.7, Chloride 100, Carbon Dioxide 27, Anion Gap 18, BUN 15, Creatinine 0.8, Est GFR ( Amer) > 60, Est GFR (Non- Af Amer) > 60, Random Glucose 300 H, Calcium 9.5, Total Bilirubin 0.2, AST 18, ALT 10, Alkaline Phosphatase 110, Total Protein 8.9 H, Albumin 4.2, Globulin 4.7 , Albumin/Globulin Ratio 0.9 L, Lipase 67 05/16/18 15:00: WBC 9.5, RBC 4.28, Hgb 11.4 L, Hct 34.3 L, MCV 80.1, MCH 26.6, MCHC 33.2, RDW 13.1, Plt Count 352, MPV 10.0, Gran % 62.7, Lymph % (Auto) 30.6, Starr % (Auto) 5.6, Eos % (Auto) 0.8 L, Baso % (Auto) 0.3, Gran # 5.97, Lymph # ( Auto) 2.9, Starr # (Auto) 0.5, Eos # (Auto) 0.1, Baso # (Auto) 0.03, ESR 110 H I have reviewed the lab results: Yes - RAD Interpretation Narrative RAD Interpretations (Text): 05/16/18 Chest X-ray: Creator : Hattie Cavazos MD IMPRESSION: No active pulmonary disease. 05/16/[address] with contrast: Creator : Lissette Winslow MD IMPRESSION: 3.9 x 1.7 cm region of skin thickening and fluid involving the lateral right inferior aspect pannus. Complex 3.7 x 4.2 cm cystic lesion in the region of the right ovary, possibly complex cyst however alternatives including hydrosalpinx are not excluded. Heterogeneous appearance of a lobulated uterus likely related to fibroids. Correlate clinically and suggest pelvic ultrasound for further evaluation if indicated. Small hiatal hernia/distal esophageal wall thickening. Additional findings as above. Radiology Orders: 05/16/18 13:17 CHEST ONE VIEW [RAD] Stat 05/16/18 13:22 ABDOMEN & PELVIS [ABD & PELVIS IV CONTRAST ONLY] [CT] Stat Mis Manager: Radiologist - EKG Interpretation Interpreted by ED Physician: Yes Type: 12 lead EKG - Medication Orders Current Medication Orders: Discontinued Medications Sodium Chloride (Sodium Chloride 0.9%) 1,000 mls @ 999 mls/hr IV .Q1H1M STA Stop: 05/16/18 14:18 Last Admin: 05/16/18 15:38 Dose: 999 mls/hr eMAR Start Stop Document 05/16/18 15:38 HI (Rec: 05/16/18 15:38 HI [place] [id number]) Intravenous Solution Start Date 05/16/18 Start Time 15:38 Vancomycin HCl (Vancomycin 1gm) 1 gm in 250 mls @ 167 mls/hr IVPB STAT STA PRN Reason: Protocol Stop: 05/16/18 14:47 Last Admin: 05/16/18 15:30 Dose: 167 mls/hr eMAR Start Stop Document 05/16/18 15:30 HI (Rec: 05/16/18 15:30 HI [id number]) Intravenous Solution Start Date 05/16/18 Start Time 15:30 Sodium Chloride (Sodium Chloride 0.9%) 1,000 mls @ 999 mls/hr IV .Q1H1M STA Stop: 05/16/18 19:00 Last Admin: 05/16/18 18:41 Dose: 999 mls/hr eMAR Start Stop Document 05/16/18 18:41 HI (Rec: 05/16/18 18:42 [place] [id number]) Intravenous Solution Start Date 05/16/18 Start Time 18:41 Morphine Sulfate (Morphine) 2 mg IVP STAT STA Stop: 05/16/18 18:02 Last Admin: 05/16/18 18:42 Dose: 2 mg MAR Pain Assessment Document 05/16/18 18:42 HI (Rec: 05/16/18 18:42 [place] [id number]) Pain Reassessment Is this a pain reassessment? No Sleep Is patient sleeping during reassessment? No Presence of Pain Presence of Pain Yes Location Pain Location Body Site Groin IVP Administration Document 05/16/18 18:42 HI (Rec: 05/16/18 18:42 [place] [id number]) Charges for Administration # of IVP Administrations 1 Morphine Sulfate (Morphine) 4 mg IVP STAT STA Stop: 05/16/18 19:40 Last Admin: 05/16/18 19:56 Dose: 4 mg MAR Pain Assessment Document 05/16/18 19:56 HI (Rec: 05/16/18 19:57 [place] [id number]) Pain Reassessment Is this a pain reassessment? No Sleep Is patient sleeping during reassessment? No Presence of Pain Presence of Pain Yes Location Pain Location Body Site Abdomen Description Description Throbbing Intensity of Pain at present 8 Acceptable Level of Pain 0 Pain Behavior Moaning Facial Grimacing Alleviating Factors/Management Medication Techniques IVP Administration Document 05/16/18 19:56 HI (Rec: 05/16/18 19:57 [place] [id number]) Charges for Administration # of IVP Administrations 1 - Scribe Statement The provider has reviewed the documentation as recorded by the Scribe Raimundo De Santiago Provider Scribe Attestation: All medical record entries made by the Scribe were at my direction and personally dictated by me. I have reviewed the chart and agree that the record accurately reflects my personal performance of the history, physical exam, medical decision making, and the department course for this patient. I have also personally directed, reviewed, and agree with the discharge instructions and disposition. Disposition/Present on Arrival - Present on Arrival Any Indicators Present on Arrival: No History of DVT/PE: No History of Uncontrolled Diabetes: Yes Urinary Catheter: No History of Decub. Ulcer: No History Surgical Site Infection Following: None - Disposition Have Diagnosis and Disposition been Completed?: Yes Diagnosis: Boil, Abscess Disposition: HOME/ ROUTINE Disposition Time: 19:41 Patient Plan: Discharge Condition: IMPROVED Discharge Instructions (ExitCare): Boil (DC), Abscess Incision and Drainage (DC ) Prescriptions: oxyCODONE/Acetaminophen [Percocet 5/325 mg Tab] 1 ea PO PRN PRN 3 Days #6 tab PRN Reason: Pain, Severe (8-10) Sulfamethoxazole/Trimethoprim [Bactrim DS 800 mg-160 mg] 1 tab PO DAILY 10 Days #10 tab Referrals: Mina Cabral MD [Family Provider] - Follow up with primary Forms: [employer] (Swedish)
[2018-05-16] MEDS ORDERED: Vancomycin 1gm in NS 250ml 1 GM/250 ML BAG IVPB STA (13:18)
[2018-05-16] MEDS ORDERED: Sodium Chloride 0.9% 1,000 ML IV STA ×2 (13:18→18:00)
[2018-05-16 15:25] LABS: BASO # 0.03 K/mm3 (0.0-2.0); BASO % 0.3 % (0.0-3.0); EOS # 0.1 (0.0-0.7); EOS % 0.8 % (1.5-5.0); GRAN # 5.97 (1.4-6.5); GRAN % 62.7 % (50.0-68.0); HEMOGLOBIN 11.4 g/dL (12.0-16.0); LYMPH # 2.9 (1.2-3.4); LYMPH % 30.6 % (22.0-35.0); MEAN CELL VOLUME 80.1 fl (80.0-105.0); MEAN CORPUSCULAR HEMOGLOBIN 26.6 pg (25.0-35.0); MEAN CORPUSCULAR HGB CONC 33.2 g/dl (31.0-37.0); MONO # 0.5 (0.1-0.6); MONO % 5.6 % (1.0-6.0); RBC 4.28 10^6/uL (3.5-6.1); RED CELL DISTRIBUTION WIDTH 13.1 % (11.5-14.5); WHITE BLOOD COUNT 9.5 10^3/ul (4.5-11.0)
[2018-05-16 15:37] LABS: PROTHROMBIN TIME 11.4 SECONDS (9.4-12.5)
[2018-05-16 16:03] LABS: ALB/GLOB RATIO 0.9 (1.1-1.8); ALBUMIN 4.2 g/dL (3.0-4.8); ALT/SGPT 10 U/L (7-56); AST/SGOT 18 U/L (14-36); BLOOD UREA NITROGEN 15 mg/dL (7-21); CALCIUM 9.5 mg/dL (8.4-10.5); GFR NON-AFRICAN AMERICAN > 60; LIPASE 67 U/L (23-300)
[2018-05-16 17:27] VITALS: PULSE 85
--- NOTE | 2018-05-16 17:37 | RAD ---
Date of service: 05/16/2018 PROCEDURE: CHEST RADIOGRAPH, 1 VIEW HISTORY: infection COMPARISON: 02/04/2018. FINDINGS: LUNGS: The lungs are well inflated and clear. PLEURA: No pneumothorax or pleural fluid seen. CARDIOVASCULAR: Normal. OSSEOUS STRUCTURES: No significant abnormalities. VISUALIZED UPPER ABDOMEN: Normal. OTHER FINDINGS: None. IMPRESSION: No active pulmonary disease.
--- NOTE | 2018-05-16 17:38 | CT ---
Date of service: 05/16/2018 PROCEDURE: CT Abdomen and Pelvis with contrast HISTORY: H/O abscess w/ indurated mass near groin COMPARISON: CT abdomen and pelvis with contrast performed 10/02/17 TECHNIQUE: Contrast dose: 150 mL Omnipaque 350 Radiation dose: Total exam DLP = 1201.94 MGy-cm. This CT exam was performed using one or more of the following dose reduction techniques: Automated exposure control, adjustment of the mA and/or kV according to patient size, and/or use of iterative reconstruction technique. FINDINGS: LOWER THORAX: No visible consolidation, pleural effusion, or pneumothorax. Small hiatal hernia/distal esophageal wall thickening. LIVER: Unremarkable. GALLBLADDER AND BILE DUCTS: Unremarkable. PANCREAS: Unremarkable. SPLEEN: Unremarkable. ADRENALS: Unremarkable. KIDNEYS AND URETERS: The kidneys enhance symmetrically. No hydronephrosis or obstructing calculus identified. VASCULATURE: No aortic aneurysm. BOWEL: Stomach is nondistended. Lack of oral contrast limits evaluation for bowel pathology. Bowel loops appear within normal limits of caliber without evidence of obstruction. APPENDIX: The appendix is not identified. No secondary signs of acute appendicitis. PERITONEUM: No significant free fluid. No definite free air. LYMPH NODES: No bulky adenopathy identified. BLADDER: Under distention of the urinary bladder limits evaluation. REPRODUCTIVE: The uterus is present. Complex 3.7 x 4.2 cm cystic lesion in the region of the right ovary, possibly complex cyst however alternatives including hydrosalpinx are not excluded. Heterogeneous appearance of a lobulated uterus likely related to fibroids. BONES: Mild degenerative changes of the spine. OTHER FINDINGS: 3.9 x 1.7 cm region of skin thickening and fluid involving the lateral right inferior aspect pannus. IMPRESSION: 3.9 x 1.7 cm region of skin thickening and fluid involving the lateral right inferior aspect pannus. Complex 3.7 x 4.2 cm cystic lesion in the region of the right ovary, possibly complex cyst however alternatives including hydrosalpinx are not excluded. Heterogeneous appearance of a lobulated uterus likely related to fibroids. Correlate clinically and suggest pelvic ultrasound for further evaluation if indicated. Small hiatal hernia/distal esophageal wall thickening. Additional findings as above.
[2018-05-16] MEDS ORDERED: Morphine 2 mg/ml ISec IVP STA (18:01)
[2018-05-16] MEDS ORDERED: Lidocaine PF 2% (5 ml) Inj (For Cardiac Arrhy) ONE (18:54)
[2018-05-16] MEDS ORDERED: Morphine 4 mg/ml ISec IVP STA (19:39)
--- NOTE | 2018-05-16 19:47 | PCM.PROC ---
Incision and Drainage - Time Time Performed: 19:43 - Time Out Time Out: Side verified, Site verified, Patient ID confirmed, Sterile procedures obs. - Procedure Procedure-Incision & Drainage: Incision and Drainage of Right Groin Abscess - Consent obtained Consent obtained: Written - Performed by Performed by: Attending Physician (Assisted by Operations Trainer) - Indications Indications: Cutaneous abscess - Contraindications Contraindications: None - Location Location: Right, Inguina/Groin - Dimensions Dimensions Length cm: 4 Dimensions width cm: 3 - Anesthetic Technique Anesthetic Technique: Local, Intravenous pain meds - Anesthetic Anesthetic: Lidocaine 1% w/epi - Systemic Analgesia Systemic Analgesia: Morphine - Procedure Procedure: Usual prep and drape, cm incision (1), Overlying area fluctuance, # scalpel used (11), Explored for loculations, Packed with sterile gauze - Drained Drained: ml pus (5) - Post-procedure Post procedure: Dressed - Complications Complications: None - Patient tolerated procedure Patient tolerated procedure: Well
[2018-05-16 19:50] VITALS: BP 136/69; O2SAT 99
--- NOTE | 2018-05-16 23:21 | CARD ---
APPROVED REPORT Date of service: 05/16/2018 EKG Measurement Heart [id number] <Conclusion> Poor data quality, interpretation may be adversely affected Normal sinus rhythm Cannot rule out Anterior infarct, age undetermined Abnormal ECG
--- NOTE | 2018-05-17 04:55 | CON ---
Copied To: Mina Cabral MD Attending MD: Mina Cabral MD DATE: 05/16/2018 HISTORY OF PRESENT ILLNESS: The patient is a 47-year-old, came to emergency room because of increasing pain, swelling in her right groin, below her right lower abdominal fold. The patient is known to have abscesses in the past. Complained of having chills, but no fever, no nausea or vomiting, no diarrhea. Denies any trauma to the area. The patient states she could not take pain anymore, so she decided to come to emergency room for evaluation. PAST MEDICAL HISTORY: Significant for: 1. Rnj-ekbqxsn-yhhvrkguu diabetes. 2. Hypertension. 3. Hyperlipidemia. 4. History of breast abscess in the past, had multiple admissions for I and D of her below-breast abscesses. 5. History of admission for sepsis secondary to abscess back in 10/2014. 6. History of gastritis. ALLERGIES: SHE IS NOT ALLERGIC TO ANY MEDICATION. MEDICATIONS AT HOME: She is on: 1. Trulicity 1.5 mg weekly. 2. Glimepiride 4 mg twice a day. 3. Metformin 500 twice a day. 4. Valsartan 320 daily. 5. Amlodipine 10 mg daily. SOCIAL HISTORY: She works full-time job. Denies smoking. Denies heavy drinking, but socially drinks and does smoke here and there. PHYSICAL EXAMINATION GENERAL: Awake and alert, not in any distress, but complained of pain in the right groin and abdominal fold. VITAL SIGNS: She has temperature 99.1, pulse 86, respiration 18, blood pressure 133/76. LUNGS: Bilateral good airflow. No rhonchi or crackle. HEART: S1 and S2 audible. ABDOMEN: Soft. She has right groin fold abscess, 5 x 7 cm in duration with yellow spot in the middle. LABORATORY DATA: WBC is 9.5, hemoglobin 11.4, hematocrit 34.3, platelets 352. PT 11.4, INR 1, PTT 26. Chemistry: Sodium 141, potassium 3.7, chloride 100, CO2 of 26, BUN 15, creatinine 0.8, blood sugar of 300. LFTs are within normal limits. She has CT of the abdomen and pelvis done that shows 3.9 x 1.7 cm region has skin thickening and fluid involving the lateral right inferior aspect of pannus, and complex 3.7 x 4.2 cystic lesion in the region of right ovary, possibly complex cyst. ASSESSMENT: 1. Right groin abscess. 2. Rsv-fbiewim-jqdrcxgin diabetes. 3. Hypertension. 4. Hyperlipidemia. 5. Morbid obesity. PLAN: The patient will be placed on observation. Surgical team is called for I and D. The patient was given dose of vancomycin and she will be discharged on Augmentin. Mina Cabral MD
== END 2018-05-16 20:00 | disposition home or self-care (01) ==
LOC: ED 12:13
DX: L02.214 Cutaneous abscess of groin (principal); I10 Essential (primary) hypertension; E11.9 Type 2 diabetes mellitus without complications; E78.5 Hyperlipidemia, unspecified; E66.01 Morbid (severe) obesity due to excess calories
CPT/HCPCS: 10060; 71045; 74177; 80053; 83690; 84702; 85025; 85610; 85651; 85730; 87040; 87070; 87181; 93005; 96374; 96375; 96376; 99285; J2270; J7030; Q9967

== ENCOUNTER 2018-07-22 10:28 | Inpatient (IN) | payer OTHER ==
--- NOTE | 2018-07-22 11:10 | ED PDOC ---
Arrival/HPI - General Chief Complaint: Abnormal Skin Integrity Time Seen by Provider: 07/22/18 11:03 Historian: Patient - History of Present Illness Narrative History of Present Illness (Text): 07/22/18 11:06 47 y/o female, pmh including htn/dm, nkda, c/o fever with chills along with lt. breast skin redness and pain x 1 week. Pt. stated that she has recurrent breast cellulitis and abscess, previous surgically taken care by Dr. Bowman, and she had sepsis history. Pt. noted to have fever and chills after couple of days of the lt. breast cellulitis, no night sweat, no dizziness, no numbness or tingling, no other medical or psychological complaints. Past Medical History - Provider Review Nursing Documentation Reviewed: Yes - Infectious Disease Hx of Infectious Diseases: None - Tetanus Immunization Tetanus Immunization: Unknown - Cardiac Hx Cardiac Disorders: Yes Hx Hypertension: Yes - Pulmonary Hx Respiratory Disorders: No Hx Tuberculosis: No - Neurological Hx Neurological Disorder: Yes Hx Dizziness: Yes Hx Transient Ischemic Attacks (TIA): Yes - HEENT Hx HEENT Disorder: No Hx Macular Degeneration: No - Renal Hx Renal Disorder: Yes Hx Kidney Stones: Yes - Endocrine/Metabolic Hx Endocrine Disorders: Yes Hx Diabetes Mellitus Type 2: Yes - Hematological/Oncological Hx Blood Disorders: No Hx Unexplained Bleeding: No - Integumentary Hx Dermatological Disorder: Yes (H/O BREAST ABSCESS) Hx Squamous Cell Carcinoma: No - Musculoskeletal/Rheumatological Hx Musculoskeletal Disorders: No - Gastrointestinal Hx Gastrointestinal Disorders: No - Genitourinary/Gynecological Hx Genitourinary Disorders: Yes (FIBROID) Hx Urinary Tract Infection: Yes - Psychiatric Hx Psychophysiologic Disorder: No Hx Sexual Abuse: No Hx Substance Use: No - Past Surgical History Past Surgical History: Unable to Obtain - Surgical History Hx Valve Replacement: No Other/Comment: I&D OF ABSCESS - Anesthesia Hx Anesthesia: Yes Hx Anesthesia Reactions: No Hx Malignant Hyperthermia: No - Suicidal Assessment Feels Threatened In Home Enviroment: No Family/Social History - Physician Review Nursing Documentation Reviewed: Yes Family/Social History: Unknown Family HX Smoking Status: Never Smoked Hx Alcohol Use: No Hx Substance Use: No Hx Substance Use Treatment: No Allergies/Home Meds Allergies/Adverse Reactions: Allergies No Known Allergies Allergy (Verified 07/22/18 11:03) Home Medications: Home Meds Medication Instructions Recorded Confirmed amLODIPine [Norvasc] 10 mg PO DAILY 06/02/15 07/22/18 MetFORMIN [glucoPHAGE] 500 mg PO BID 06/29/15 07/22/18 Glimepiride 0 mg PO BID 07/31/17 07/22/18 Valsartan [Diovan] 0 mg PO DAILY 07/31/17 07/22/18 Dulaglutide [Trulicity] 0 mg SC QWK 02/04/18 07/22/18 Review of Systems - Review of Systems Constitutional: Fevers. absent: Fatigue Eyes: absent: Vision Changes ENT: absent: Hearing Changes Respiratory: absent: SOB, Cough Cardiovascular: absent: Chest Pain Gastrointestinal: absent: Abdominal Pain, Nausea, Vomiting Musculoskeletal: absent: Arthralgias, Back Pain Skin: Rash, Cellulitis. absent: Pruritis, Skin Lesions, Laceration, Abscess, Ulcer Neurological: absent: Headache, Dizziness Psychiatric: absent: Anxiety, Depression, Suicidal Ideation Physical Exam Vital Signs Reviewed: Yes Vital Signs Temp Pulse Resp BP Pulse Ox 07/22/18 11:00 98.9 F 91 H 18 151/93 H 98 Temperature: Afebrile Blood Pressure: Hypertensive Pulse: Regular Respiratory Rate: Normal Appearance: Positive for: Well-Appearing, Non-Toxic, Comfortable Pain Distress: Moderate Mental Status: Positive for: Alert and Oriented X 3 - Systems Exam Head: Present: Atraumatic, Normocephalic Pupils: Present: PERRL Extroacular Muscles: Present: EOMI Conjunctiva: Present: Normal Mouth: Present: Moist Mucous Membranes Neck: Present: Normal Range of Motion Respiratory/Chest: Present: Clear to Auscultation, Good Air Exchange. No: Respiratory Distress, Accessory Muscle Use Cardiovascular: Present: Regular Rate and Rhythm, Normal S1, S2. No: Murmurs Abdomen: No: Tenderness, Distention, Peritoneal Signs Back: Present: Normal Inspection Upper Extremity: Present: Normal Inspection. No: Cyanosis, Edema Lower Extremity: Present: Normal Inspection. No: Edema Neurological: Present: GCS=15, CN II-XII Intact, Speech Normal Skin: Present: Warm, Dry, Normal Color, Erythematous (Lt. lower breast border skin folding near bra strapping region with cellulitis noted with firm distended and mild streaking. ). No: Rashes Psychiatric: Present: Alert, Oriented x 3, Normal Insight, Normal Concentration Medical Decision Making ED Course and Treatment: 07/22/18 11:19 -Labs/blood culture -cxr -IV vancomycin/zosyn/toradol -Obsreve and reassess 07/22/18 13:17 -Urine hcg is negative -CXR No active pulmonary disease. -Labs show wbc 13.8 (blood cultures with IV vanco/zosyn ordered), K+ 3.4 (potassium chloride 20meq po ordered), Mg 1.5 (mgsulfate 2gm IV ordered) -Lactic acid within normal limit -Pt. will need admission for IV antibiotic and surgical evaluation for possible underdevloping abscess of the breast as she had it drained before. -I discussed with the patient about the case and she agreed on the admission. -Paging Dr. Cabral. 07/22/18 13:43 -I spoke to Dr. Lala, covering for Dr. Cabral, discussed about this case/labs/radiology results, agreed to admit but admit to Dr. Cabral's service and put Nitin Shafer on service as he operated on her before (pt. preferred Nitin Schneider as well). - Lab Interpretations I have reviewed the lab results: Yes - RAD Interpretation Radiology Orders: HISTORY: medical clearance COMPARISON: 05/16/2018 FINDINGS: LUNGS: The lungs are well inflated and clear. PLEURA: No pleural effusions or pneumothorax. CARDIOVASCULAR: The heart is normal in size. No aortic atherosclerotic calcification present. OSSEOUS STRUCTURES: Within normal limits for the patient's age. VISUALIZED UPPER ABDOMEN: Normal. OTHER FINDINGS: None. IMPRESSION: No active pulmonary disease. [place] Supervisor: Radiologist - PA / [employer] / Resident Statement MD/DO has reviewed & agrees with the documentation as recorded. Disposition/Present on Arrival - Present on Arrival Any Indicators Present on Arrival: No History of DVT/PE: No History of Uncontrolled Diabetes: Yes Urinary Catheter: No History of Decub. Ulcer: No History Surgical Site Infection Following: None - Disposition Have Diagnosis and Disposition been Completed?: Yes Diagnosis: Cellulitis of breast, Hypokalemia, Hypomagnesemia, Leukocytosis Disposition: HOSPITALIZED Disposition Time: 13:16 Patient Plan: Admission, Observation Patient Problems: Current Active Problems Problem Status Onset Hypokalemia Acute Hypomagnesemia Acute Cellulitis of breast Acute Leukocytosis Acute Condition: STABLE Discharge Instructions (ExitCare): Cellulitis (ED) Forms: [employer] ([place])
[2018-07-22] MEDS ORDERED: Vancomycin 1gm in NS 250ml 1 GM/250 ML BAG IVPB STA (11:13)
[2018-07-22] MEDS ORDERED: Piperacillin/Tazobact 3.375 gm 100 ML IVPB STA (11:13)
[2018-07-22 12:21] LABS: BASO # 0.02 K/mm3 (0.0-2.0); BASO % 0.1 % (0.0-3.0); EOS % 0.2 % (1.5-5.0); GRAN # 9.95 (1.4-6.5); HEMOGLOBIN 11.5 g/dL (12.0-16.0); LYMPH # 3.1 (1.2-3.4); MEAN CELL VOLUME 82.5 fl (80.0-105.0); MEAN CORPUSCULAR HEMOGLOBIN 27.5 pg (25.0-35.0); MEAN CORPUSCULAR HGB CONC 33.3 g/dl (31.0-37.0); MONO # 0.8 (0.1-0.6); MONO % 5.7 % (1.0-6.0); RBC 4.18 10^6/uL (3.5-6.1); RED CELL DISTRIBUTION WIDTH 13.1 % (11.5-14.5); WHITE BLOOD COUNT 13.8 10^3/uL (4.5-11.0)
[2018-07-22 12:23] LABS: VENOUS BLOOD GAS BASE EXCESS 5.1 mmol/L (0.0-2.0); VENOUS BLOOD GAS PO2 63 mm/Hg (30-55); VENOUS BLOOD PH 7.42 (7.32-7.43)
[2018-07-22 12:45] LABS: ALB/GLOB RATIO 0.9 (1.1-1.8); ALT/SGPT 13 U/L (7-56); AST/SGOT 16 U/L (14-36); BLOOD UREA NITROGEN 14 mg/dL (7-21); CALCIUM 9.6 mg/dL (8.4-10.5); GFR NON-AFRICAN AMERICAN > 60
--- NOTE | 2018-07-22 12:52 | RAD ---
Date of service: 07/22/2018 HISTORY: medical clearance COMPARISON: 05/16/2018 FINDINGS: LUNGS: The lungs are well inflated and clear. PLEURA: No pleural effusions or pneumothorax. CARDIOVASCULAR: The heart is normal in size. No aortic atherosclerotic calcification present. OSSEOUS STRUCTURES: Within normal limits for the patient's age. VISUALIZED UPPER ABDOMEN: Normal. OTHER FINDINGS: None. IMPRESSION: No active pulmonary disease.
[2018-07-22] MEDS ORDERED: Sodium Chloride 0.9% 1,000 ML IV STA (13:10)
[2018-07-22] MEDS ORDERED: Potassium Chloride 20 mEq ER Tab PO STA (13:11)
[2018-07-22] MEDS ORDERED: Magnesium Sulfate 2 gm/50 ml 2 GM/50 ML BAG IVPB ONE (13:12)
[2018-07-22] MEDS ORDERED: Magnesium Sulfate 2 GM in Sodium Chloride 0.9% 100 ML IV ONE (13:15)
[2018-07-22] MEDS ORDERED: Vancomycin 1gm in NS 250ml 1 GM/250 ML BAG IVPB SCH (15:30)
[2018-07-22] MEDS: Sodium Chloride 0.9% 1,000 ML IV SCH (15:49)
[2018-07-22 16:01] VITALS: BMI 41.6
--- NOTE | 2018-07-22 16:45 | CP.PCM.CON ---
History of Present Illness - History of Present Illness History of Present Illness: Surgery: Dr. Hoyt Reason for consult: Left breast cellulitis possible abscess CC: L breast pain, abscess HPI: Patient is a 47F w/ pmhx of recurrent bilat breast abscesses requiring I & D presents complaining of 2 week history of pain and induration under left breast. She states the pain has progressively gotten worse overtime and feels similar to that of episodes in the past. She reports associated subjective fevers and chill at home. She denies drainage from the abscess or nipple. She denies any masses palpable in the breast or the axilla. Her last mammogram was in 2016 which was normal at that time, she has not had a repeat since. She was recently seen in the ER at [facility] [place] for groin abscess which was drained and patient was d/c'd on abx. She reports being started on new DM medication for better glucose control; however she reports blood sugars remaining between 150-250 on a regular basis. She states her last HgbA1c was performed a few months ago and was around 12. PMH: DM, HTN, last mammogram 2015-neg, no hx breast CA PSH: I & D of bilat breasts abscesses All: NKDA SH: Denies ETOH, tobacco, or illicit drug use PMD: Perveen Review of Systems - Constitutional Constitutional: Chills, Fever. absent: Anorexia - EENT Eyes: absent: Blind Spots, Blurred Vision Ears: absent: Disequilibrium, Dizziness Nose/Mouth/Throat: absent: Nasal Congestion, Nose Pain - Breasts Breasts: As Per HPI, Pain, Other (induration). absent: Change in Shape, Nipple Discharge, Nipple Inversion, Skin Changes, Swelling - Cardiovascular Cardiovascular: absent: Chest Pain, Dyspnea - Respiratory Respiratory: absent: Cough, Wheezing - Gastrointestinal Gastrointestinal: absent: Abdominal Pain, Bloating - Genitourinary Genitourinary: absent: Hematuria, Pyuria - Musculoskeletal Musculoskeletal: absent: Numbness, Tingling - Integumentary Integumentary: Other (recurrent abscesses, groin and breast ). absent: Acne, Alopecia - Neurological Neurological: absent: Disequilibrium, Dizziness - Psychiatric Psychiatric: absent: Anxiety, Behavioral Changes - Endocrine Endocrine: absent: Change in Body Appearance - Hematologic/Lymphatic Hematologic: absent: Easy Bleeding, Easy Bruising Past Patient History - Infectious Disease Hx of Infectious Diseases: None - Tetanus Immunizations Tetanus Immunization: Unknown - Past Social History Smoking Status: Never Smoked - CARDIAC Hx Cardiac Disorders: Yes Hx Hypertension: Yes - PULMONARY Hx Respiratory Disorders: No Hx Tuberculosis: No - NEUROLOGICAL Hx Neurological Disorder: Yes Hx Dizziness: Yes Hx Transient Ischemic Attacks (TIA): Yes - HEENT Hx HEENT Problems: No Hx Macular Degeneration: No - RENAL Hx Chronic Kidney Disease: Yes Hx Kidney Stones: Yes - ENDOCRINE/METABOLIC Hx Endocrine Disorders: Yes Hx Diabetes Mellitus Type 2: Yes - HEMATOLOGICAL/ONCOLOGICAL Hx Blood Disorders: No Hx Unexplained Bleeding: No - INTEGUMENTARY Hx Dermatological Problems: Yes (H/O BREAST ABSCESS) Hx Squamous Cell: No - MUSCULOSKELETAL/RHEUMATOLOGICAL Hx Falls: No - GASTROINTESTINAL Hx Gastrointestinal Disorders: No - GENITOURINARY/GYNECOLOGICAL Hx Genitourinary Disorders: Yes (FIBROID) Hx Urinary Tract Infection: Yes - PSYCHIATRIC Hx Psychophysiologic Disorder: No Hx Sexual Abuse: No Hx Substance Use: No - SURGICAL HISTORY Hx Valve Replacement: No Other/Comment: I&D OF ABSCESS - ANESTHESIA Hx Anesthesia: Yes Hx Anesthesia Reactions: No Hx Malignant Hyperthermia: No Meds Allergies/Adverse Reactions: Allergies Allergy/AdvReac Type Severity Reaction Status Date / Time No Known Allergies Allergy Verified 07/22/18 11:03 - Medications Medications: Current Medications Acetaminophen (Tylenol 325mg Tab) 650 mg PO Q4H PRN PRN Reason: Pain, Mild (1-3) Amlodipine Besylate (Norvasc) 10 mg PO DAILY [facility] Glimepiride (Amaryl) 2 mg PO BID [facility] Sodium Chloride (Sodium Chloride 0.9%) 1,000 mls @ 100 mls/hr IV .Q10H [facility] Last Admin: 07/22/18 15:49 Dose: 100 mls/hr Vancomycin HCl (Vancomycin 1gm) 1 gm in 250 mls @ 167 mls/hr IVPB Q12H [facility]; Protocol Last Admin: 07/22/18 15:38 Dose: Not Given Insulin Human Lispro (Humalog Low) 0 units SC ACBD [facility]; Protocol Lidocaine (Lidoderm) 1 ea TD DAILY [facility] Metformin HCl (Glucophage) 500 mg PO BID [facility] Tramadol HCl (Ultram) 50 mg PO TID PRN PRN Reason: Pain, moderate (4-7) Valsartan (Diovan) 320 mg PO DAILY [facility] Physical Exam - Constitutional Appears: Non-toxic, No Acute Distress - Head Exam Head Exam: ATRAUMATIC, NORMOCEPHALIC - Eye Exam Eye Exam: EOMI, Normal appearance - ENT Exam ENT Exam: Mucous Membranes Moist - Respiratory Exam Respiratory Exam: NORMAL BREATHING PATTERN. absent: Respiratory Distress - Cardiovascular Exam Cardiovascular Exam: REGULAR RHYTHM. absent: Tachycardia - GI/Abdominal Exam GI & Abdominal Exam: Soft. absent: Distended, Tenderness - Rectal Exam Rectal Exam: Deferred - Extremities Exam Extremities exam: Positive for: normal inspection. Negative for: calf tenderness - Neurological Exam Neurological exam: Alert, Oriented x3 - Psychiatric Exam Psychiatric exam: Normal Affect, Normal Mood - Skin Skin Exam: Dry, Warm - Expanded Skin Exam Expanded Type of lesion: Abscess Distribution of rash: Chest (Left breast ) Description of Rash: Fluctuant, Indurated, Tenderness Results - Vital Signs Recent Vital Signs: Last Vital Signs Temp 98.9 F 07/22/18 11:00 Pulse 94 H 07/22/18 14:37 Resp 18 07/22/18 15:58 BP 117/73 07/22/18 14:37 Pulse Ox 98 07/22/18 14:37 - Labs Result Diagrams: 07/22/18 12:00 07/22/18 12:10 Labs: Laboratory Results - last 24 hr 07/22/18 07/22/18 07/22/18 12:00 12:10 12:10 WBC 13.8 H D RBC 4.18 Hgb 11.5 L Hct 34.5 L MCV 82.5 MCH 27.5 MCHC 33.3 RDW 13.1 Plt Count 345 MPV 10.0 Gran % 72.0 H Lymph % (Auto) 22.0 [place] % (Auto) 5.7 Eos % (Auto) 0.2 L Baso % (Auto) 0.1 Gran # 9.95 H Lymph # (Auto) 3.1 [place] # (Auto) 0.8 H Eos # (Auto) 0.0 Baso # (Auto) 0.02 pO2 63 H VBG pH 7.42 VBG pCO2 47.0 VBG HCO3 30.5 H VBG Total CO2 31.9 H VBG O2 Sat (Calc) 95.6 H VBG Base Excess 5.1 H VBG Potassium 3.3 L Sodium 135 135.0 Chloride 95 L 96.0 L Glucose 322 H Lactate 1.8 FiO2 21.0 Potassium 3.4 L Carbon Dioxide 30 Anion Gap 13 BUN 14 Creatinine 0.8 Est GFR ( Amer) > 60 Est GFR (Non-Af Amer) > 60 Random Glucose 305 H* Calcium 9.6 Magnesium 1.5 L Total Bilirubin 0.3 AST 16 ALT 13 Alkaline Phosphatase 108 Total Protein 8.5 H Albumin 4.0 Globulin 4.5 Albumin/Globulin Ratio 0.9 L Venous Blood Potassium 3.3 L Assessment & Plan - Assessment and Plan (Free Text) Assessment: 47 y/o female w/ recurrent breast abscesses, now with Left breast abscess Plan: -breast u/s -IV abx -NPO pmn, pending results of U/S of breast may consider OR I&D tomorrow -warm compress prn -pain control -needs outpatient mammogram updated -better glucose level control -further recs per Dr. Hoyt [facility] PGY4
[2018-07-22] MEDS: Meropenem IV 1 gm in NS 1 GM/50 ML BAG IVPB SCH ×2 (17:12→21:07)
[2018-07-22] MEDS: Lidocaine 5% Patch TD SCH (17:12)
[2018-07-22] MEDS: Insulin Lispro (humaLOG) LOW Coverage SC SCH (17:13)
[2018-07-23] MEDS: Meropenem IV 1 gm in NS 1 GM/50 ML BAG IVPB SCH ×3 (05:11→21:30)
[2018-07-23 06:32] LABS: BASO # 0.02 K/mm3 (0.0-2.0); BASO % 0.2 % (0.0-3.0); EOS % 0.3 % (1.5-5.0); GRAN # 8.69 (1.4-6.5); GRAN % 73.6 % (50.0-68.0); HEMOGLOBIN 10.3 g/dL (12.0-16.0); LYMPH # 2.4 (1.2-3.4); LYMPH % 20.1 % (22.0-35.0); MEAN CELL VOLUME 82.6 fl (80.0-105.0); MEAN CORPUSCULAR HEMOGLOBIN 26.8 pg (25.0-35.0); MEAN CORPUSCULAR HGB CONC 32.5 g/dl (31.0-37.0); MEAN PLATELET VOLUME 9.8 fl (7.0-11.0); MONO # 0.7 (0.1-0.6); MONO % 5.8 % (1.0-6.0); RBC 3.84 10^6/uL (3.5-6.1); RED CELL DISTRIBUTION WIDTH 13.2 % (11.5-14.5); WHITE BLOOD COUNT 11.8 10^3/uL (4.5-11.0)
[2018-07-23] MEDS: Vancomycin 1gm in NS 250ml 1 GM/250 ML BAG IVPB SCH ×2 (06:40→17:31)
--- NOTE | 2018-07-23 07:44 | CP.PCM.PN ---
Subjective - Date & Time of Evaluation Date of Evaluation: 07/23/18 Time of Evaluation: 07:00 - Subjective Subjective: Patient seen and examined. Complains of pain in left breast. +fluctuance along inframammary fold. No active drainage. Denies fever/chills. Objective - Vital Signs/Intake and Output Vital Signs (last 24 hours): Temp Pulse Resp BP Pulse Ox 98.3 F 92 H 20 125/75 96 07/22/18 16:43 07/22/18 16:43 07/22/18 16:43 07/22/18 16:43 07/22/18 16:43 - Medications Medications: Current Medications Acetaminophen (Tylenol 325mg Tab) 650 mg PO Q4H PRN PRN Reason: Pain, Mild (1-3) Amlodipine Besylate (Norvasc) 10 mg PO DAILY [facility] Glimepiride (Amaryl) 2 mg PO BID [facility] Last Admin: 07/22/18 17:13 Dose: 2 mg Sodium Chloride (Sodium Chloride 0.9%) 1,000 mls @ 100 mls/hr IV .Q10H [facility] Last Admin: 07/22/18 15:49 Dose: 100 mls/hr Meropenem (Merrem Iv 1 Gm Premix) 1 gm in 50 mls @ 100 mls/hr IVPB Q8 [facility]; Protocol Stop: 07/31/18 16:44 Last Admin: 07/23/18 05:11 Dose: 100 mls/hr Vancomycin HCl (Vancomycin 1gm) 1 gm in 250 mls @ 167 mls/hr IVPB Q12H [facility]; Protocol Last Admin: 07/23/18 06:40 Dose: 167 mls/hr Insulin Human Lispro (Humalog Low) 0 units SC ACBD [facility]; Protocol Last Admin: 07/22/18 17:13 Dose: 2 units Lidocaine (Lidoderm) 1 ea TD DAILY [facility] Last Admin: 07/22/18 17:12 Dose: 1 ea Metformin HCl (Glucophage) 500 mg PO BID [facility] Last Admin: 07/22/18 17:13 Dose: 500 mg Tramadol HCl (Ultram) 50 mg PO TID PRN PRN Reason: Pain, moderate (4-7) Last Admin: 07/23/18 03:34 Dose: 50 mg Valsartan (Diovan) 320 mg PO DAILY [facility] - Labs Labs: 07/23/18 05:45 07/22/18 12:10 - Constitutional Appears: No Acute Distress - Head Exam Head Exam: NORMOCEPHALIC - Eye Exam Eye Exam: EOMI, Normal appearance - ENT Exam ENT Exam: Mucous Membranes Moist - Respiratory Exam Respiratory Exam: NORMAL BREATHING PATTERN - Cardiovascular Exam Cardiovascular Exam: +S1, +S2 - GI/Abdominal Exam GI & Abdominal Exam: Soft - Neurological Exam Neurological Exam: Alert, Awake, Oriented x3 - Psychiatric Exam Psychiatric exam: Normal Mood - Skin Skin Exam: Warm Additional comments: No palpable lymph nodes fluctuant skin changes in left breast Assessment and Plan - Assessment and Plan (Free Text) Assessment: 47 y/o female w/ recurrent breast abscesses, now with Left breast abscess Plan: -F/u breast u/s -IV abx -NPO pmn, pending results of U/S of breast may consider OR I&D today 07/23 -warm compress prn -pain control -needs outpatient mammogram updated -strict glucose control -further recs per Dr. Lai Rojas PGY3
[2018-07-23 08:06] LABS: BLOOD UREA NITROGEN 17 mg/dL (7-21); GFR NON-AFRICAN AMERICAN 60
[2018-07-23 08:07] LABS: CALCIUM 8.9 mg/dL (8.4-10.5)
[2018-07-23] MEDS: Insulin Lispro (humaLOG) LOW Coverage SC SCH ×2 (08:07→17:38)
[2018-07-23] MEDS: Lidocaine 5% Patch TD SCH (09:54)
[2018-07-23 10:13] LABS: INR 1.09; PARTIAL THROMBOPLASTIN TIME 27.5 Seconds (25.1-36.5); PROTHROMBIN TIME 12.5 SECONDS (9.4-12.5)
[2018-07-23 12:39] LABS: URINE BILIRUBIN NEGATIVE (NEGATIVE); URINE BLOOD NEGATIVE (NEGATIVE); URINE GLUCOSE (UA) NEGATIVE (NEGATIVE); URINE LEUKOCYTE ESTERASE NEGATIVE Leu/uL (NEGATIVE); URINE PROTEIN NEGATIVE mg/dL (<30 mg/dL); URINE UROBILINOGEN 0.2 E.U./dL (<1 E.U./dL)
[2018-07-23 12:40] LABS: URINE APPEARANCE CLEAR (CLEAR); URINE COLOR YELLOW (YELLOW)
[2018-07-23] MEDS: Morphine 2 mg/ml ISec IVP PRN ×2 (14:15→21:31)
--- NOTE | 2018-07-23 15:23 | US ---
Date of service: 07/23/2018 PROCEDURE: Soft tissue ultrasound left chest HISTORY: breast cellulitis, evaluate for abscess COMPARISON: None TECHNIQUE: Standard protocol for this study/examination. FINDINGS: Complex subcutaneous fluid collection/abscess containing debris. The area of interest measures 1.5 x 3.8 x Cutaneous thickening/edema identified 5.5 cm. IMPRESSION: Chest wall abscess corresponds to findings on physical examination. No additional, suspicious findings.
--- NOTE | 2018-07-23 15:38 | CON ---
DATE: 07/23/2018 The patient is seen earlier today this morning in room 366, bed 1. CHIEF COMPLAINTS: Fevers and chills and a skin infection underneath her breast, it is not her breast, it is on the chest, underneath her breast. HISTORY OF PRESENT ILLNESS: This is 47-year-old female, known to me from previous admission with a morbid obesity with BMI of 41, hypertension, diabetes, coronary artery disease, history of breast abscesses in the past, who had an HIV test negative in 2016. She has had an incision and drainage of her breast and now admitted with fevers and chills and pain in her chest wall, underneath her breast times several days. REVIEW OF SYSTEMS: Reveals the patient has no nausea or vomiting. No headaches or blurred vision. No neck pain or sore throat. A 12-point review of systems is performed. PAST MEDICAL HISTORY: Significant for diabetes mellitus, hypertension, coronary artery disease, morbid obesity with BMI 41, and history of breast abscesses. PAST SURGICAL HISTORY: Significant for incision and drainage of breast abscesses. MEDICATIONS AT HOME: Include Norvasc, Diovan, Glucophage, glimepiride and Trulicity. ALLERGIES: THE PATIENT HAS NO KNOW ALLERGIES. PHYSICAL EXAMINATION VITAL SIGNS: The patient is in bed with a temperature of 98, blood pressure is 117/70, respiratory rate of 18, and a heart rate of 94. HEENT: Unremarkable. NECK: Supple. LUNGS: Lungs have decreased breath sounds. HEART: Normal S1 and S2. ABDOMEN: Soft and nontender. CHEST: On examination of the chest, the anterior chest wall on the left side, underneath the breast, breast is not involved, the breast is completely benign; however, the area underneath the breast on the left chest wall is tender and appears to have fluctuance to it, erythematous, and with edema. LABORATORY DATA: Laboratory examination reveals a white count of 13,000, hemoglobin 11 and platelets of 345. Chemistries revealed a BUN of 14, creatinine 0.8 and glucose 305. Microbiology in the past has showed Raoultella ornithinolytica from the abdominal culture, Serratia from right breast, coag-negative staph from the right breast and Enterobacter in the urine and [place] in the urine that was in 2015. VRE in the urine also in the past in 2015. ASSESSMENT AND PLAN: This is a 47-year-old female with diabetes mellitus, morbid obesity, body mass index of 41, hypertension, coronary artery disease, history of breast abscess, presenting with tachycardia and leukocytosis and sepsis with left chest wall cellulitis and abscess. We will treat the patient with vancomycin and meropenem. Waiting for surgical evaluation regarding intervention and culture results, and we will follow closely with you. Curt Mcclain MD
--- NOTE | 2018-07-23 23:51 | HP ---
HISTORY OF PRESENT ILLNESS: The patient is 47 years old known to me from multiple previous admissions, came to emergency room because of increasing pain in her left breast. The patient is known to have breast abscesses. She has multiple admissions for similar complaints and had I and D done. One time, she came in septic and went into acute renal failure. I have told her on multiple occasions to have breast reduction surgery done, she will benefit from that. However, she states she is very busy and could never think or never thought about it. Anyway, she is complaining of discomfort to the area. Denies any fever or chills. No nausea or vomiting. PAST MEDICAL HISTORY: Significant for, 1. Jwi-xdeskeo-ohkuigtyz diabetes. 2. Hypertension. 3. Hyperlipidemia. 4. Morbid obesity. ALLERGIES: THE PATIENT IS NOT ALLERGIC TO ANY MEDICATIONS. HOME MEDICATIONS: She is on: 1. Norvasc 10 mg daily. 2. Valsartan 320 mg daily. 3. Metformin 500 mg twice a day. 4. Glimepiride 2 mg twice a day. 5. Trulicity 1.5 mg subcutaneous weekly. SOCIAL HISTORY: She has a boyfriend. She works in [employer]. Denies drinking. She used to smoke, currently smoke here and there. PHYSICAL EXAMINATION GENERAL: She complains of pain in the left breast area. VITAL SIGNS: She is afebrile, pulse 94, respirations 18, and blood pressure 143/90. LUNGS: Bilateral fair airflow. No rhonchi or crackle. HEART: S1 and S2 audible. ABDOMEN: Soft and nontender. No rebound. No guarding. NEUROLOGIC: The patient is awake, alert, oriented, and communicative. LABORATORY DATA: WBC is 11.8, hemoglobin 10.3, hematocrit 31.7, and platelets 331. Chemistry; sodium 138, potassium 3.7, chloride 104, CO2 of 27, BUN 17, creatinine 1.0, and blood sugar of 167. Blood cultures are negative. ASSESSMENT: 1. Left breast abscess. 2. Hypertension. 3. Dxn-papsvqh-ibxapigda diabetes. PLAN: Currently, the patient is on IV antibiotics. She is on meropenem. She is on vancomycin. She is on analgesic. She is n.p.o. for possible I and D in the OR. Mina Cabral MD [facility] # [id number]
[2018-07-24] MEDS: Morphine 2 mg/ml ISec IVP PRN (04:52)
[2018-07-24] MEDS: Meropenem IV 1 gm in NS 1 GM/50 ML BAG IVPB SCH ×3 (05:00→22:25)
[2018-07-24] MEDS: Vancomycin 1gm in NS 250ml 1 GM/250 ML BAG IVPB SCH ×2 (05:21→20:33)
[2018-07-24] MEDS: Insulin Lispro (humaLOG) LOW Coverage SC SCH ×2 (08:32→16:30)
[2018-07-24] MEDS: Lidocaine 5% Patch TD SCH ×2 (09:04→09:11)
[2018-07-24] MEDS ORDERED: Morphine 4 mg/ml ISec SC PRN (13:06)
[2018-07-24] MEDS: Morphine 4 mg/ml ISec IVP PRN (13:22)
--- NOTE | 2018-07-24 15:52 | PN ---
DATE: 07/24/2018 SUBJECTIVE: The patient is in bed, in no acute distress, nontoxic. PHYSICAL EXAMINATION: VITAL SIGNS: On exam, temperature is 98, blood pressure is 117/70, respiratory rate of 18. HEENT: Examination of HEENT is unremarkable. NECK: Supple. LUNGS: Have decreased breath sounds. HEART: Normal S1, S2. ABDOMEN: Soft. LABORATORY DATA: Laboratory examination reveals a white count of 11,800. Chemistries are noted. Microbiology reveals the blood cultures are negative. ASSESSMENT AND PLAN: A 47-year-old female with diabetes mellitus, morbid obesity, body mass index of 41, hypertension, coronary artery disease, history of breast abscess. Presenting with sepsis with a left chest wall cellulitis and abscess. The patient is currently waiting to go to the OR today for incision and drainage and we will check on the vancomycin trough level prior to the fourth dose. Currently on vancomycin and meropenem. We will check on the OR cultures once the patient . Curt Mcclain MD
[2018-07-24] MEDS ORDERED: Bupivacaine 0.5% 50 ML IJ ONE (17:05)
[2018-07-24] MEDS ORDERED: Lidocaine 1% Inj (20ml) ONE (17:05)
[2018-07-24] MEDS ORDERED: Propofol 10 mg/ml Inj (20 ML) ONE (17:20)
[2018-07-24] MEDS ORDERED: Midazolam 2 MG/2 ML VIAL ONE (17:20)
[2018-07-24] MEDS ORDERED: Sodium Chloride 0.9% 10 ML IV ONE (17:24)
[2018-07-24] MEDS ORDERED: HYDROmorphone 0.5 mg/0.5 ml ISec IVP PRN (18:10)
[2018-07-24] MEDS ORDERED: Lactated Ringer's 1,000 ML IV SCH (18:15)
--- NOTE | 2018-07-24 18:18 | PCM.SURG1 ---
Surgeon's Initial Post Op Note - Surgeon's Notes Surgeon: Dr. Hoyt Manager Cafe: Dr. Samson, PGY4 Type of Anesthesia: General LMA, Local Pre-Operative Diagnosis: left inframammary fold breast abscess Operative Findings: purulent fluid, necrotic wound tissue Post-Operative Diagnosis: same Operation Performed: incision and drainage of inframammary breast abscess, left. sharp and blunt debridement. versajet debridement Specimen/Specimens Removed: fluid culture Estimated Blood Loss: EBL {In ML}: 15 Blood Products Given: N/A Drains Used: No Drains Post-Op Condition: Good Date of Surgery/Procedure: 07/24/18 Time of Surgery/Procedure: 18:17
[2018-07-24] MEDS ORDERED: HYDROmorphone 0.5 mg/0.5 ml ISec ONE (18:19)
--- NOTE | 2018-07-25 03:12 | PN ---
DATE: 07/24/2018 SUBJECTIVE: The patient is a 47-year-old, seen and examined. Complaining of pain under left breast, awaiting surgery. PHYSICAL EXAMINATION: VITAL SIGNS: When I saw the patient, she is afebrile, pulse 69, respirations 17, and blood pressure 138/71. LUNGS: Bilateral fair airflow. No rhonchi or crackle. HEART: S1 and S2 audible. ABDOMEN: Soft and nontender. No rebound. No guarding. She has big two lumps in the crease of breast and abdomen, severe palpable tenderness. LABORATORY DATA: Blood sugar is 166. The patient is currently n.p.o. for OR later on exam. ASSESSMENT AND PLAN: 1. Left breast abscess for incision and drainage today. 2. Sro-sebbenk-qfrdboexk diabetes. 3. Hypertension. 4. Hyperlipidemia. 5. Morbid obesity. PLAN: We will continue the patient on current medication. We will monitor blood sugar and Lyrica as needed and she is currently on meropenem. Continue her current IV fluid and IV antibiotics. We will reevaluate the patient in a.m. and I will order for CBC and CMP in a.m. Mina Cabral MD
[2018-07-25] MEDS: Sodium Chloride 0.9% 1,000 ML IV SCH (04:00)
[2018-07-25] MEDS: Morphine 4 mg/ml ISec IVP PRN ×2 (04:36→13:23)
[2018-07-25] MEDS: Meropenem IV 1 gm in NS 1 GM/50 ML BAG IVPB SCH ×3 (05:22→21:44)
[2018-07-25] MEDS: Vancomycin 1gm in NS 250ml 1 GM/250 ML BAG IVPB SCH (06:15)
[2018-07-25 07:59] LABS: BASO # 0.02 K/mm3 (0.0-2.0); BASO % 0.2 % (0.0-3.0); EOS # 0.1 (0.0-0.7); EOS % 0.7 % (1.5-5.0); GRAN # 8.8 (1.4-6.5); GRAN % 71.4 % (50.0-68.0); HEMOGLOBIN 10.3 g/dL (12.0-16.0); LYMPH # 2.5 (1.2-3.4); MEAN CELL VOLUME 82.7 fl (80.0-105.0); MEAN CORPUSCULAR HEMOGLOBIN 27.5 pg (25.0-35.0); MEAN CORPUSCULAR HGB CONC 33.2 g/dl (31.0-37.0); MEAN PLATELET VOLUME 9.4 fl (7.0-11.0); MONO % 7.7 % (1.0-6.0); RBC 3.75 10^6/uL (3.5-6.1); RED CELL DISTRIBUTION WIDTH 13.1 % (11.5-14.5); WHITE BLOOD COUNT 12.3 10^3/uL (4.5-11.0)
[2018-07-25 08:17] LABS: ALB/GLOB RATIO 0.9 (1.1-1.8); ALBUMIN 3.7 g/dL (3.0-4.8); ALT/SGPT 13 U/L (7-56); AST/SGOT 18 U/L (14-36); BLOOD UREA NITROGEN 8 mg/dL (7-21); CALCIUM 8.8 mg/dL (8.4-10.5); GFR NON-AFRICAN AMERICAN > 60
[2018-07-25] MEDS: Enoxaparin 40 mg Syringe SC SCH (09:52)
[2018-07-25] MEDS: Lidocaine 5% Patch TD SCH (09:59)
--- NOTE | 2018-07-25 10:43 | PN ---
DATE: 07/25/2018 SUBJECTIVE: The patient is in bed in no acute distress. She is awake and alert. She states she tolerated the procedure well. She is tolerating the antibiotics well. PHYSICAL EXAMINATION: VITAL SIGNS: Also, with a temperature of 98, blood pressure of 115/60, respiratory rate of 18. HEENT: Examination of HEENT is unremarkable. NECK: Supple. LUNGS: Have decreased breath sounds. HEART: Exam reveals normal S1, S2. ABDOMEN: Examination is soft, nontender. LABORATORY EXAMINATION: Reveals the patient's white count of 12,300, hemoglobin of 10, and the chemistries reveal a BUN of 17, creatinine of 1.0, hemoglobin A1c is 11.6, and blood cultures are negative. OPERATIVE NOTE: Incision and drainage abscess of the left breast, again this was not the left breast, this was on the chest wall and OR cultures are pending. Currently, the patient is on vancomycin and meropenem. ASSESSMENT AND PLAN: This is a 47-year-old female with morbid obesity, BMI of 41 with diabetes mellitus, hypertension, coronary artery disease, breast abscess by history, now admitted with sepsis with a left chest wall cellulitis and abscess, status post incision and drainage postprocedure day #1. Awaiting for the OR cultures. We will follow with you. Curt Mcclain MD
--- NOTE | 2018-07-25 14:32 | CP.PCM.PN ---
Subjective - Date & Time of Evaluation Date of Evaluation: 07/25/18 Time of Evaluation: 14:29 - Subjective Subjective: Jennifer Urbina, PGY-1, Surgery Progress Note for Dr. Hoyt. Patient seen and evaluated at bedside. Patient had no acute overnight events. Patient reports constipation due to loss of appetite since arrival at hospital. Patient denies headache, dizziness, chest pain, heart palpitations, shortness of breath, nausea, vomiting, diarrhea, dysuria, hematuria. Objective - Vital Signs/Intake and Output Vital Signs (last 24 hours): Temp Pulse Resp BP Pulse Ox 98.5 F 71 19 115/68 96 07/25/18 07:51 07/25/18 07:51 07/25/18 07:51 07/25/18 09:51 07/25/18 07:51 - Medications Medications: Current Medications Acetaminophen (Tylenol 325mg Tab) 650 mg PO Q4H PRN PRN Reason: Pain, Mild (1-3) Amlodipine Besylate (Norvasc) 10 mg PO DAILY [facility] Last Admin: 07/25/18 09:51 Dose: 10 mg Enoxaparin Sodium (Lovenox) 40 mg SC DAILY [facility]; Protocol Last Admin: 07/25/18 09:52 Dose: 40 mg Glimepiride (Amaryl) 2 mg PO BID [facility] Last Admin: 07/25/18 09:51 Dose: 2 mg Meropenem (Merrem Iv 1 Gm Premix) 1 gm in 50 mls @ 100 mls/hr IVPB Q8 [facility]; Protocol Stop: 07/31/18 16:44 Last Admin: 07/25/18 13:23 Dose: 100 mls/hr Vancomycin HCl (Vancomycin 1gm) 1 gm in 250 mls @ 167 mls/hr IVPB Q12H [facility]; Protocol Last Admin: 07/25/18 06:15 Dose: 167 mls/hr Lidocaine (Lidoderm) 1 ea TD DAILY [facility] Last Admin: 07/25/18 09:59 Dose: Not Given Metformin HCl (Glucophage) 500 mg PO BID [facility] Last Admin: 07/25/18 09:51 Dose: 500 mg Morphine Sulfate (Morphine) 4 mg IVP Q4H PRN PRN Reason: Pain, moderate (4-7) Last Admin: 07/25/18 13:23 Dose: 4 mg Ondansetron HCl (Zofran Inj) 4 mg IVP ONCE PRN PRN Reason: Nausea/Vomiting Pantoprazole Sodium (Protonix Inj) 40 mg IVP DAILY [facility] Last Admin: 07/25/18 09:51 Dose: 40 mg Tramadol HCl (Ultram) 50 mg PO TID PRN PRN Reason: Pain, moderate (4-7) Last Admin: 07/23/18 09:50 Dose: 50 mg Valsartan (Diovan) 320 mg PO DAILY [facility] Last Admin: 07/25/18 09:51 Dose: 320 mg - Labs Labs: 07/25/18 07:30 07/25/18 07:30 PT 12.5 SECONDS (9.4-12.5) 07/23/18 10:00 INR 1.09 07/23/18 10:00 APTT 27.5 Seconds (25.1-36.5) 07/23/18 10:00 - Constitutional Appears: Well, Non-toxic, No Acute Distress - Head Exam Head Exam: ATRAUMATIC, NORMAL INSPECTION, NORMOCEPHALIC - Eye Exam Eye Exam: EOMI Pupil Exam: PERRL - ENT Exam ENT Exam: Mucous Membranes Moist - Neck Exam Neck Exam: Full ROM - Respiratory Exam Respiratory Exam: Clear to Ausculation Bilateral, NORMAL BREATHING PATTERN - Cardiovascular Exam Cardiovascular Exam: REGULAR RHYTHM - GI/Abdominal Exam GI & Abdominal Exam: Soft, Normal Bowel Sounds - Extremities Exam Extremities Exam: Full ROM - Neurological Exam Neurological Exam: Alert, Awake, CN II-XII Intact, Oriented x3 Assessment and Plan - Assessment and Plan (Free Text) Assessment: 47 year old female with past medical history of diabetes mellitus, hypertension presents with left breast mass with s/p incision and drainage day 1. Plan: Follow up cultures from incision and drainage of breast mass. Patient has no growth on blood cultures in 48 hours. Fluids have been stopped. Patient will have packing of breast changed twice daily DVT prophylaxis with lovenox. GI prophylaxis with protonix. Replete electrolytes as needed. Will discuss case with Dr. Soto.
[2018-07-25 17:06] VITALS: RESP 20
--- NOTE | 2018-07-25 18:56 | PN ---
DATE: 07/25/2018 SUBJECTIVE: The patient is 47 years old, seen and examined, states her pain is better since she has I&D done. PHYSICAL EXAMINATION: GENERAL: She is awake, alert, oriented, communicative. VITAL SIGNS: She is afebrile, pulse 71, respirations 19, blood pressure 115/68. LUNGS: Bilateral fair airflow. No rhonchi or crackle. HEART: S1 and S2 audible. ABDOMEN: Soft, nontender. Her surgical site had blood tinged dressing that needs to be changed. Will be soon changed by vice president quality assurance after she had packing removed and replaced with a new one. NEUROLOGICAL: She is awake, alert, oriented, communicative. LABORATORY DATA: WBC 12.3, hemoglobin 10.3, hematocrit 31, and platelets 335. Chemistry: Sodium 139, potassium 3.6, chloride 103, CO2 of 20. BUN 8, creatinine 0.8. Blood sugar of 156. Urinalysis is unremarkable. Blood cultures are negative. ASSESSMENT: 1. Left under breast abscess, status post incision and drainage. 2. Hypertension. 3. Hma-gbibnav-gwbkizxxc diabetes. 4. Morbid obesity. PLAN: Currently, the patient is on meropenem. She is on vancomycin. We will continue that. Follow up cultures. Analgesics as needed. Monitor blood sugar. We will follow up patient in a.m. Discharge planning according to Surgery. Mina Cabral MD
[2018-07-26] MEDS: Meropenem IV 1 gm in NS 1 GM/50 ML BAG IVPB SCH (06:12)
[2018-07-26 08:28] LABS: BASO # 0.02 K/mm3 (0.0-2.0); BASO % 0.2 % (0.0-3.0); EOS # 0.1 (0.0-0.7); EOS % 1.2 % (1.5-5.0); GRAN # 6.81 (1.4-6.5); GRAN % 66.5 % (50.0-68.0); LYMPH # 2.6 (1.2-3.4); MEAN CELL VOLUME 82.7 fl (80.0-105.0); MEAN CORPUSCULAR HEMOGLOBIN 27.5 pg (25.0-35.0); MEAN CORPUSCULAR HGB CONC 33.2 g/dl (31.0-37.0); MEAN PLATELET VOLUME 9.3 fl (7.0-11.0); MONO # 0.7 (0.1-0.6); MONO % 7.1 % (1.0-6.0); RBC 3.64 10^6/uL (3.5-6.1); WHITE BLOOD COUNT 10.2 10^3/uL (4.5-11.0)
--- NOTE | 2018-07-26 08:29 | CP.PCM.PN ---
Subjective - Date & Time of Evaluation Date of Evaluation: 07/26/18 Time of Evaluation: 08:25 - Subjective Subjective: General Surgery Progress Note for Dr. Hoyt 47F, seen and evaluated at bedside. No acute events overnight. Patient tolerating diet, ambulating without difficulty. Admits to pain at incision site controlled with medication. Denies f/c, n/v/d, CP, SOB, or urinary symptoms. Objective - Vital Signs/Intake and Output Vital Signs (last 24 hours): Temp Pulse Resp BP Pulse Ox 98.6 F 107 H 20 132/83 97 07/25/18 17:05 07/25/18 17:05 07/25/18 17:05 07/25/18 17:05 07/25/18 17:05 Intake and Output: 07/26/18 07/26/18 06:59 18:59 Intake Total 2190 Balance 2190 - Medications Medications: Current Medications Acetaminophen (Tylenol 325mg Tab) 650 mg PO Q4H PRN PRN Reason: Pain, Mild (1-3) Amlodipine Besylate (Norvasc) 10 mg PO DAILY [facility] Last Admin: 07/25/18 09:51 Dose: 10 mg Enoxaparin Sodium (Lovenox) 40 mg SC DAILY [facility]; Protocol Last Admin: 07/25/18 09:52 Dose: 40 mg Glimepiride (Amaryl) 2 mg PO BID [facility] Last Admin: 07/25/18 17:01 Dose: 2 mg Meropenem (Merrem Iv 1 Gm Premix) 1 gm in 50 mls @ 100 mls/hr IVPB Q8 [facility]; Protocol Stop: 07/31/18 16:44 Last Admin: 07/26/18 06:12 Dose: 100 mls/hr Vancomycin HCl (Vancomycin 1gm) 1 gm in 250 mls @ 167 mls/hr IVPB Q12H [facility]; Protocol Last Admin: 07/25/18 06:15 Dose: 167 mls/hr Lidocaine (Lidoderm) 1 ea TD DAILY [facility] Last Admin: 07/25/18 09:59 Dose: Not Given Metformin HCl (Glucophage) 500 mg PO BID [facility] Last Admin: 07/25/18 17:01 Dose: 500 mg Morphine Sulfate (Morphine) 4 mg IVP Q4H PRN PRN Reason: Pain, moderate (4-7) Last Admin: 07/25/18 13:23 Dose: 4 mg Ondansetron HCl (Zofran Inj) 4 mg IVP ONCE PRN PRN Reason: Nausea/Vomiting Pantoprazole Sodium (Protonix Inj) 40 mg IVP DAILY [facility] Last Admin: 07/25/18 09:51 Dose: 40 mg Tramadol HCl (Ultram) 50 mg PO TID PRN PRN Reason: Pain, moderate (4-7) Last Admin: 07/25/18 17:01 Dose: 50 mg Valsartan (Diovan) 320 mg PO DAILY [facility] Last Admin: 07/25/18 09:51 Dose: 320 mg - Labs Labs: 07/25/18 07:30 07/25/18 07:30 PT 12.5 SECONDS (9.4-12.5) 07/23/18 10:00 INR 1.09 07/23/18 10:00 APTT 27.5 Seconds (25.1-36.5) 07/23/18 10:00 - Constitutional Appears: Well, Non-toxic, No Acute Distress - Head Exam Head Exam: ATRAUMATIC, NORMAL INSPECTION, NORMOCEPHALIC - Respiratory Exam Respiratory Exam: NORMAL BREATHING PATTERN - Cardiovascular Exam Cardiovascular Exam: REGULAR RHYTHM - GI/Abdominal Exam GI & Abdominal Exam: Soft, Normal Bowel Sounds. absent: Tenderness - Neurological Exam Neurological Exam: Alert, Awake - Psychiatric Exam Psychiatric exam: Normal Affect, Normal Mood - Skin Skin Exam: Dry, Intact, Warm Assessment and Plan - Assessment and Plan (Free Text) Assessment: 47F w/ left breast mass s/p I&D POD2 Plan: F/u wound cultures from breast mass Continue packing changes twice daily Monitor labs and vitals Further recommendations per Dr. Lai Bennett PGY1
[2018-07-26] MEDS ORDERED: Morphine 4 mg/ml ISec IVP STA ×2 (09:05→09:06)
[2018-07-26] MEDS: Enoxaparin 40 mg Syringe SC SCH (09:19)
[2018-07-26] MEDS: Lidocaine 5% Patch TD SCH (09:19)
--- NOTE | 2018-07-26 15:05 | PN ---
DATE: 07/26/2018 SUBJECTIVE: The patient is seen earlier this morning. She is comfortable. She states she tolerated the surgery well. Pain is much improved. PHYSICAL EXAMINATION: VITAL SIGNS: On exam, temperature is 98, blood pressure is 131/70, respiratory rate of 20, heart rate of 107. HEENT: Examination of HEENT is unremarkable. NECK: Supple. LUNGS: Have decreased breath sounds. HEART: Normal S1, S2. ABDOMEN: Soft, nontender. LABORATORY DATA: Laboratory examination reveals a white count of 10,000, hemoglobin of 10 and a platelets of 339. Chemistries are noted. Urinalysis is reviewed. Microbiology reveals the cultures, no growth from the OR. The blood cultures are negative. ASSESSMENT AND PLAN: A 47-year-old female with morbid obesity, body mass index of 41 with diabetes mellitus, hypertension, coronary artery disease, breast abscess in the past, admitted with sepsis with left chest wall cellulitis, status post incision and drainage with the OR cultures negative. We will discontinue the vancomycin, discontinue the meropenem. Since methicillin-resistant Staphylococcus aureus is still a possibility, we will treat with Bactrim double-strength 1 tablet p.o. b.i.d. x3 days to complete therapy. Case discussed with the patient and we will follow with you. Curt Mcclain MD
[2018-07-26] MEDS: Tmp-Smz 800 mg-160 mg DS Tab PO SCH (17:05)
--- NOTE | 2018-07-26 21:23 | PN ---
DATE: 07/26/2018 SUBJECTIVE: The patient is 47 years old, seen and examined, had dressing change, packing was removed. Seems to be doing better. PHYSICAL EXAMINATION: VITAL SIGNS: She is afebrile, pulse 91, respirations 20, blood pressure 135/86. LUNGS: Bilateral fair airflow. No rhonchi or crackle. HEART: S1 and S2 audible. ABDOMEN: Soft. Nontender. Obese. No hepatosplenomegaly. NEUROLOGICAL: She is awake, alert, oriented, communicative. LABORATORY EXAM: WBC 10.2, hemoglobin 10, hematocrit 30, platelet 339. Chemistry: Sodium 139, potassium 3.6, chloride 103, CO2 of 28, BUN 8, creatinine 0.8, blood sugar of 118. Blood culture, urine culture, wound cultures are negative. ASSESSMENT: 1. Left under breast abscess, status post incision and drainage. 2. Poorly-controlled diabetes. 3. Hypertension. 4. Morbid obesity. PLAN: Wound care is being done by surgical team. We will continue her on current medications. She has been switched to p.o. Bactrim DS and she will have her bandage changed tomorrow and will be discharged in the a.m. Mina Cabral MD
--- NOTE | 2018-07-27 07:33 | CP.PCM.PN ---
Subjective - Date & Time of Evaluation Date of Evaluation: 07/27/18 Time of Evaluation: 07:30 - Subjective Subjective: General Surgery Progress Note for Dr. Hoyt 47F, seen and evaluated at bedside this morning. No acute events overnight. Patient tolerating diet. Pain well controlled. No complaints today. Denies f/c, n/v/d, SOB, CP, or urinary symptoms. Objective - Vital Signs/Intake and Output Vital Signs (last 24 hours): Temp Pulse Resp BP Pulse Ox 98.5 F 91 H 20 135/86 96 07/26/18 16:27 07/26/18 16:27 07/26/18 16:27 07/26/18 16:27 07/26/18 16:27 - Medications Medications: Current Medications Acetaminophen (Tylenol 325mg Tab) 650 mg PO Q4H PRN PRN Reason: Pain, Mild (1-3) Amlodipine Besylate (Norvasc) 10 mg PO DAILY [facility] Last Admin: 07/26/18 09:20 Dose: 10 mg Enoxaparin Sodium (Lovenox) 40 mg SC DAILY [facility]; Protocol Last Admin: 07/26/18 09:19 Dose: 40 mg Glimepiride (Amaryl) 2 mg PO BID [facility] Last Admin: 07/26/18 17:04 Dose: 2 mg Lidocaine (Lidoderm) 1 ea TD DAILY [facility] Last Admin: 07/26/18 09:19 Dose: Not Given Metformin HCl (Glucophage) 500 mg PO BID [facility] Last Admin: 07/26/18 17:05 Dose: 500 mg Ondansetron HCl (Zofran Inj) 4 mg IVP ONCE PRN PRN Reason: Nausea/Vomiting Pantoprazole Sodium (Protonix Inj) 40 mg IVP DAILY [facility] Last Admin: 07/25/18 09:51 Dose: 40 mg Tramadol HCl (Ultram) 50 mg PO TID PRN PRN Reason: Pain, moderate (4-7) Last Admin: 07/25/18 17:01 Dose: 50 mg Trimethoprim/Sulfamethoxazole (Bactrim Ds Tab) 1 tab PO BID [facility]; Protocol Stop: 07/29/18 18:01 Last Admin: 07/26/18 17:05 Dose: 1 tab Valsartan (Diovan) 320 mg PO DAILY [facility] Last Admin: 07/26/18 09:18 Dose: 320 mg - Labs Labs: 07/26/18 08:20 07/25/18 07:30 PT 12.5 SECONDS (9.4-12.5) 07/23/18 10:00 INR 1.09 07/23/18 10:00 APTT 27.5 Seconds (25.1-36.5) 07/23/18 10:00 - Constitutional Appears: Well, Non-toxic, No Acute Distress - Head Exam Head Exam: ATRAUMATIC, NORMAL INSPECTION, NORMOCEPHALIC - Eye Exam Eye Exam: EOMI - ENT Exam ENT Exam: Mucous Membranes Moist - GI/Abdominal Exam GI & Abdominal Exam: Soft. absent: Tenderness - Neurological Exam Neurological Exam: Alert, Awake, Oriented x3 - Psychiatric Exam Psychiatric exam: Normal Affect, Normal Mood - Skin Skin Exam: Dry, Intact, Warm Assessment and Plan - Assessment and Plan (Free Text) Assessment: 47F s/p I&D of left breast abscess POD3 Plan: Packing changes twice daily Pain control F/u wound cultures from breast mass Monitor labs and vitals Cleared for discharge from a surgical standpoint Davey Bennett PGY1
[2018-07-27 08:39] VITALS: PULSE 80; TEMP 97.6; O2SAT 93
[2018-07-27] MEDS ORDERED: Morphine 2 mg/ml ISec IVP STA (10:11)
[2018-07-27] MEDS: Tmp-Smz 800 mg-160 mg DS Tab PO SCH (10:15)
[2018-07-27] MEDS: Enoxaparin 40 mg Syringe SC SCH (10:17)
[2018-07-27 10:23] VITALS: BP 133/66
--- NOTE | 2018-07-27 12:41 | PN ---
DATE: 07/27/2018 SUBJECTIVE: The patient is in bed, in no acute distress, nontoxic. PHYSICAL EXAMINATION: VITAL SIGNS: On exam, temperature is 98, blood pressure is 130/60, respiratory rate 20, heart rate of 91. HEENT: Examination of HEENT is unremarkable. NECK: Supple. LUNGS: Have decreased breath sounds. HEART: Normal S1, S2. ABDOMEN: Soft. LABORATORY DATA: Laboratory examination reveals the white count is down to 10.2. Chemistries are noted. Microbiology reveals gram-negative vadim on preliminary culture, identification of sensitivity is still pending. ASSESSMENT AND PLAN: A 47-year-old female who was seen early this morning in [facility], bed 2 with morbid obesity, body mass index of 41, diabetes mellitus, hypertension, coronary artery disease, breast abscess in the past, admitted with sepsis with left chest wall cellulitis and abscess, status post incision and drainage. Now, the patient has gram-negative vadim. Currently on p.o. Bactrim. We will check on the identification and sensitivity. Curt Mcclain MD
--- NOTE | 2018-07-28 05:46 | DS ---
The patient is 47 years old, seen and examined, came in with abscess under left breast extremely painful to touch, has been going on for 3 days prior to coming to the hospital. The patient was seen by Dr. Hoyt, had I and D done with good results and relief in pain. Her cultures were negative since she was antibiotic prior to I and D. The patient did well post procedure. PHYSICAL EXAMINATION: VITAL SIGNS: She is afebrile, pulse 80, respirations 20, blood pressure 133/66. LUNGS: Bilateral fair airflow. No rhonchi or crackle. HEART: S1, S2 audible. ABDOMEN: Soft, nontender, no rebound, no guarding. NEUROLOGIC: The patient is awake, alert, oriented, able to communicate. LABORATORY DATA: WBC is 10.2, hemoglobin 10, hematocrit 30, platelet of 339. Chemistries; her blood sugar is 136. Urinalysis is unremarkable. Her OR cultures showed gram-negative rods. ASSESSMENT: 1. Left breast abscess. 2. Hypertension. 3. Non-insulin dependent diabetes, poorly controlled. 4. Morbid obesity. PLAN: The patient is being discharged home on Bactrim DS one tablet twice a day for a week. She will take Motrin as needed. She will follow with Dr. Hoyt as outpatient. The patient from her previous episode. She has enough experience to change her dressing. She will follow up with Dr. Hoyt, and I will follow the patient in office in a week or two. Mina Cabral MD
--- NOTE | 2018-07-31 03:34 | OP ---
PROCEDURE DATE: 07/24/2018 PREOPERATIVE DIAGNOSIS: Left breast abscess. POSTOPERATIVE DIAGNOSIS: Large abscess of the left breast and left intramammary fold. PROCEDURES PERFORMED: 1. Incision and drainage of the left breast abscess. 2. Debridement of the devitalized tissues of skin, fat and muscle via the short and blunt dissection. 3. Versajet debridement of the wound. The wound measured 15 x 6 cm. SURGEON: Nitin Hoyt MD MUD ANALYSIS WELL LOGGING CAPTAIN: Dr. Samson ANESTHESIA: General LMA and local anesthesia. ANESTHESIOLOGIST: Dr. Maldonado ESTIMATED BLOOD LOSS: Minimal. SPECIMEN: Cultures of the abscess. FINDINGS: The patient is a 47-year-old female with history of diabetes which is poorly controlled with previous history of multiple abscesses around the breast and chest wall. The patient now comes in with a large area of cellulitis with induration at the bottom of the left breast. The patient was brought in to the operating room for debridement and abscess drainage. DESCRIPTION OF PROCEDURE: The patient was brought to the operating room and placed on the operating table in supine position. The patient was connected to EKG, blood pressure and pulse oximetry monitors. The patient then underwent general LMA anesthesia and was prepped and draped in the usual sterile fashion. First, a standard time-out procedure took place and everybody in the room agreed as to the patient's identity, diagnosis and procedure to be performed. First, using a #15 blade, an incision was made along the course of the abscess. This was extended total of about 15 cm. The abscess cavity was about 6 cm wide. Once the pus was emptied from the abscess cavity, we then proceeded with debridement of the devitalized tissue both of the skin as well as underlying fat, fascia and muscle. These were carefully dissected both sharply using a #15 blade as well as bluntly. Subsequently a Versajet device was used in order to debride the remaining portion of the necrotic tissues. Once the wound was completely clean and free of devitalized tissues, we then proceeded with reapproximating the edges of the skin and multiple areas loosely by using 2-0 nylon stitches. The openings on both sides of the wound were left in order to be able to pack the wound by Iodoform gauze. This was packed tightly from both sides in order to gain adequate hemostasis. On top of that packing, a pressure dressing was applied using multiple 4 x 4 gauze. Once this was done, the patient was awakened, extubated and transferred to the recovery room for further observation. Nitin Hoyt MD [facility]
== END 2018-07-27 11:47 | disposition home or self-care (01) | DRG 854 ==
LOC: ED 10:28 → ERH 13:38 → 3RNO 14:54 → 3RSO 07-25 22:19
PROVIDERS: ADMIT Internal Medicine; ATTEND Internal Medicine
PROC: 0JD60ZZ Extraction of Chest Subcutaneous Tissue and Fascia, Open Approach (ICD-10-PCS; 2018-07-24)
PROC: 0H9U0ZX Drainage of Left Breast, Open Approach, Diagnostic (ICD-10-PCS; principal; 2018-07-24 17:00)
DX: A41.9 Sepsis, unspecified organism (principal); L03.313 Cellulitis of chest wall; Z68.41 Body mass index [BMI] 40.0-44.9, adult; N61.1 Abscess of the breast and nipple; E11.65 Type 2 diabetes mellitus with hyperglycemia; N63.20 Unspecified lump in the left breast, unspecified quadrant; E87.6 Hypokalemia; I10 Essential (primary) hypertension; I25.10 Atherosclerotic heart disease of native coronary artery without angina pectoris; E66.01 Morbid (severe) obesity due to excess calories; E78.5 Hyperlipidemia, unspecified; E83.42 Hypomagnesemia; F17.200 Nicotine dependence, unspecified, uncomplicated; K59.00 Constipation, unspecified; Z86.73 Personal history of transient ischemic attack (TIA), and cerebral infarction without residual deficits; Z79.84 Long term (current) use of oral hypoglycemic drugs

== ENCOUNTER 2019-01-01 06:45 | Emergency (ER) | payer OTHER ==
[2019-01-01 06:46] VITALS: BMI 41.6
[2019-01-01 07:05] VITALS: TEMP 97.9
--- NOTE | 2019-01-01 07:26 | ED PDOC ---
Arrival/HPI - General Historian: Patient - History of Present Illness Narrative History of Present Illness (Text): 01/01/19 07:23 Patient is a 48yo F with PMH HTN, DM, and recurrent breast abscesses reporting to ED with complaint of breast abscess. She noticed the abscess beginning to form 3 days ago, progressively enlarging since then. She reports severe tenderness in the area, rating her pain 9/10. She took aleve at home with no relief. She reports warmth in the area. She complains of mild associated nausea. She denies drainage, fever, or chills. She denies using a warm compress at home for the abscess. She has an extensive history of breast abscesses. Patient denies abdominal pain, vomiting, diarrhea, dysuria, numbness, or tingling. <Marita Dias - Last Filed: 01/01/19 14:16> <Rj Euceda - Last Filed: 01/01/19 18:33> - General Chief Complaint: Breast Problem Time Seen by Provider: 01/01/19 07:10 Past Medical History - Infectious Disease Hx of Infectious Diseases: None - Tetanus Immunization Tetanus Immunization: Unknown - Cardiac Hx Cardiac Disorders: Yes Hx Hypertension: Yes - Pulmonary Hx Respiratory Disorders: No - Neurological Hx Neurological Disorder: Yes Hx Dizziness: Yes Hx Transient Ischemic Attacks (TIA): Yes - HEENT Hx HEENT Disorder: No - Renal Hx Renal Disorder: Yes Hx Kidney Stones: Yes - Endocrine/Metabolic Hx Endocrine Disorders: Yes Hx Diabetes Mellitus Type 2: Yes - Hematological/Oncological Hx Blood Disorders: No - Integumentary Hx Dermatological Disorder: Yes (H/O BREAST ABSCESS) Hx Squamous Cell Carcinoma: No - Musculoskeletal/Rheumatological Hx Musculoskeletal Disorders: No - Gastrointestinal Hx Gastrointestinal Disorders: No - Genitourinary/Gynecological Hx Genitourinary Disorders: Yes (FIBROID) Hx Urinary Tract Infection: Yes - Psychiatric Hx Psychophysiologic Disorder: No Hx Substance Use: No - Surgical History Other/Comment: Hx of breast bilat abscess removal - Anesthesia Hx Anesthesia: Yes Hx Anesthesia Reactions: No Hx Malignant Hyperthermia: No - Suicidal Assessment Feels Threatened In Home Enviroment: No <Marita Dias - Last Filed: 01/01/19 14:16> Family/Social History Family/Social History: No Known Family HX Smoking Status: Never Smoked Hx Alcohol Use: No Hx Substance Use: No Hx Substance Use Treatment: No <MelchormayteDior eddykarenjeremiah - Last Filed: 01/01/19 14:16> Allergies/Home Meds <Dior Diaskarenjeremiah - Last Filed: 01/01/19 14:16> <Rj Euceda - Last Filed: 01/01/19 18:33> Allergies/Adverse Reactions: Allergies No Known Allergies Allergy (Verified 01/01/19 07:01) Home Medications: Home Meds Medication Instructions Recorded Confirmed amLODIPine [Norvasc] 10 mg PO DAILY 06/02/15 07/22/18 MetFORMIN [glucoPHAGE] 500 mg PO BID 06/29/15 07/22/18 Glimepiride 0 mg PO BID 07/31/17 07/22/18 Valsartan [Diovan] 0 mg PO DAILY 07/31/17 07/22/18 Dulaglutide [Trulicity] 0 mg SC QWK 02/04/18 07/22/18 Review of Systems - Review of Systems Constitutional: absent: Fatigue, Fevers Eyes: absent: Vision Changes Respiratory: absent: SOB, Cough Cardiovascular: absent: Chest Pain Gastrointestinal: Nausea. absent: Abdominal Pain, Diarrhea, Vomiting Genitourinary Female: absent: Dysuria Skin: Abscess Neurological: absent: Headache <CodeyirajsurjitDiorjerry - Last Filed: 01/01/19 14:16> Physical Exam Vital Signs Temp Pulse Resp BP Pulse Ox 01/01/19 07:01 97.9 F 106 H 16 149/88 98 - Systems Exam Head: Present: Atraumatic, Normocephalic Extroacular Muscles: Present: EOMI Conjunctiva: Present: Normal Mouth: Present: Moist Mucous Membranes Neck: Present: Normal Range of Motion Respiratory/Chest: No: Respiratory Distress, Accessory Muscle Use Cardiovascular: Present: Tachycardic Abdomen: Present: Normal Bowel Sounds. No: Tenderness, Distention, Peritoneal Signs Breast/Axillary: No: Discoloration, Nipple Discharge Upper Extremity: Present: Normal Inspection Lower Extremity: Present: Normal Inspection Neurological: Present: GCS=15, CN II-XII Intact, Speech Normal Skin: Present: Warm, Abscess (5x3cm indurated abscess with minimal erythema. no drainage noted) <LarissaDiorjerry - Last Filed: 01/01/19 14:16> Vital Signs Temp Pulse Resp BP Pulse Ox 01/01/19 07:01 97.9 F 106 H 16 149/88 98 <Rj Euceda - Last Filed: 01/01/19 18:33> Medical Decision Making ED Course and Treatment: 01/01/19 14:16 Bedside I&D performed. Copious purulent drainage expressed. Discussed with surgery resident, agreed to d/c and f/u outpatient with Dr. Hoyt. - RAD Interpretation Radiology Orders: 01/01/19 07:20 BREAST UNILATERAL RIGHT [US] Stat - Procedure PROCEDURE NOTE (Text): 01/01/19 14:18 Bedside I&D performed. Area was cleaned with provodine sticks. Area was anesthet ized with lidocaine 1% with epi. 3cm incision was made. Purulent material drained with minimal amount of blood loss. Iodoform packing was placed. Patient tolerated procedure well. <Marita Dias - Last Filed: 01/01/19 14:16> ED Course and Treatment: 01/01/19 07:56 Patient was seen and evaluated by resident. Patient is a 48 year old female who presents to the emergency department complaining of breast abscess. On skin exam, 5x3cm indurated abscess. 01/01/19 18:33 breast asbcess drained by surgical team. bactrim given. advis eoutpt fu. - RAD Interpretation Radiology Orders: 01/01/19 07:20 BREAST UNILATERAL RIGHT [US] Stat - Medication Orders Current Medication Orders: Discontinued Medications Ketorolac Tromethamine (Toradol) 30 mg IVP STAT STA Stop: 01/01/19 07:34 <Rj Euceda - Last Filed: 01/01/19 18:33> Disposition/Present on Arrival - Present on Arrival Any Indicators Present on Arrival: Yes History of DVT/PE: No History of Uncontrolled Diabetes: Yes Urinary Catheter: No History of Decub. Ulcer: No History Surgical Site Infection Following: None - Disposition Have Diagnosis and Disposition been Completed?: Yes Disposition Time: 14:18 <Marita Dias - Last Filed: 01/01/19 14:16> <Rj Euceda - Last Filed: 01/01/19 18:33> - Disposition Diagnosis: Breast abscess, Uncontrolled diabetes mellitus, Abscess Disposition: HOME/ ROUTINE Condition: IMPROVED Discharge Instructions (ExitCare): Abscess Incision and Drainage, Diabetes Diet Additional Instructions: Please follow up with Dr. Hoyt within 1 week. Call to make an appointment. If you experience fevers, chills, nausea, vomiting, or severe pain, please return to the emergency department. Please take your prescription for antibiotics as prescribed. Take care and be well. Prescriptions: Clindamycin [Cleocin] 300 mg PO TID 7 Days #21 cap Sulfamethoxazole/Trimethoprim [Bactrim DS 800 mg-160 mg] 1 tab PO BID #14 tab Referrals: Mina Cabral MD [Primary Care Provider] - Follow up with primary Nitin Hoyt MD [Staff Provider] - Follow up with primary Forms: [employer] (Indonesian)
[2019-01-01 08:12] LABS: BASO # 0.02 K/mm3 (0.0-2.0); BASO % 0.2 % (0.0-3.0); EOS # 0.1 (0.0-0.7); EOS % 0.6 % (1.5-5.0); HEMOGLOBIN 11.5 g/dL (12.0-16.0); LYMPH # 2.1 (1.2-3.4); LYMPH % 16.8 % (22.0-35.0); MEAN CELL VOLUME 82.4 fl (80.0-105.0); MEAN CORPUSCULAR HEMOGLOBIN 26.9 pg (25.0-35.0); MEAN CORPUSCULAR HGB CONC 32.7 g/dl (31.0-37.0); MEAN PLATELET VOLUME 9.7 fl (7.0-11.0); MONO # 0.7 (0.1-0.6); MONO % 5.7 % (1.0-6.0); RBC 4.27 10^6/uL (3.5-6.1); RED CELL DISTRIBUTION WIDTH 13.1 % (11.5-14.5); WHITE BLOOD COUNT 12.4 10^3/uL (4.5-11.0)
[2019-01-01 08:22] LABS: ALB/GLOB RATIO 0.9 (1.1-1.8); AST/SGOT 23 U/L (14-36); BLOOD UREA NITROGEN 9 mg/dL (7-21); GFR NON-AFRICAN AMERICAN > 60
[2019-01-01 08:27] LABS: ALT/SGPT < 6 U/L (7-56)
[2019-01-01 08:28] LABS: INR 1.05; PROTHROMBIN TIME 11.9 SECONDS (9.4-12.5)
[2019-01-01 08:51] LABS: URINE BILIRUBIN NEGATIVE (NEGATIVE); URINE BLOOD LARGE (NEGATIVE); URINE GLUCOSE (UA) NEGATIVE (NEGATIVE); URINE LEUKOCYTE ESTERASE NEGATIVE Leu/uL (NEGATIVE); URINE PROTEIN 30 mg/dL (<30 mg/dL)
[2019-01-01 08:53] LABS: URINE APPEARANCE CLEAR (CLEAR); URINE COLOR YELLOW (YELLOW)
[2019-01-01 08:54] LABS: HCG,QUALITATIVE URINE NEGATIVE (NEGATIVE)
[2019-01-01 09:07] LABS: URINE BACTERIA MANY /hpf; URINE RBC 20 - 25 /hpf (0-2)
[2019-01-01 09:08] LABS: URINE AMORPHOUS SEDIMENT FEW /hpf; URINE EPITHELIAL CELLS MANY /hpf (0-5)
[2019-01-01] MEDS ORDERED: Lidocaine 1%/Epinephrine 1:100000 30 ml vial IJ ONE (10:25)
--- NOTE | 2019-01-01 10:57 | CP.PCM.CON ---
History of Present Illness - History of Present Illness History of Present Illness: Surgery: Dr. 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 She states the pain has progressively worsened, and similar to prior episodes of breast abscesses. She took aleve at home with no relief. Endorses associated subjective fevers and chills at home. She denies drainage from the abscess or nipple. She denies any masses palpable in the breast or the axilla. She denies trauma to the area. Her last mammogram was in 2015 which was normal at that time, she has not had a repeat since. She was admitted to [facility] for left abscess I and D in late June 2018, with improvement of the symptoms. States her blood sugars are never around 100-200, and never over 300. HgbA1c during last admission was 11.6 She denies chest pain, sob, abdominal pain, n/v/d. PMH: NIDM, HTN, last mammogram 2015-neg, no hx breast CA PSH: I & D of bilat breasts abscesses (most recent June 2018) All: NKDA SH: Denies ETOH, tobacco, or illicit drug use PMD: Perveen Review of Systems - Review of Systems All systems: reviewed and no additional remarkable complaints except (as per HPI) Past Patient History - Infectious Disease Hx of Infectious Diseases: None - Tetanus Immunizations Tetanus Immunization: Unknown - Past Social History Smoking Status: Never Smoked - CARDIAC Hx Cardiac Disorders: Yes Hx Hypertension: Yes - PULMONARY Hx Respiratory Disorders: No - NEUROLOGICAL Hx Neurological Disorder: Yes Hx Dizziness: Yes Hx Transient Ischemic Attacks (TIA): Yes - HEENT Hx HEENT Problems: No - RENAL Hx Chronic Kidney Disease: Yes Hx Kidney Stones: Yes - ENDOCRINE/METABOLIC Hx Endocrine Disorders: Yes Hx Diabetes Mellitus Type 2: Yes - HEMATOLOGICAL/ONCOLOGICAL Hx Blood Disorders: No - INTEGUMENTARY Hx Dermatological Problems: Yes (H/O BREAST ABSCESS) Hx Squamous Cell: No - MUSCULOSKELETAL/RHEUMATOLOGICAL Hx Musculoskeletal Disorders: No - GASTROINTESTINAL Hx Gastrointestinal Disorders: No - GENITOURINARY/GYNECOLOGICAL Hx Genitourinary Disorders: Yes (FIBROID) Hx Urinary Tract Infection: Yes - PSYCHIATRIC Hx Psychophysiologic Disorder: No Hx Substance Use: No - SURGICAL HISTORY Other/Comment: Hx of breast bilat abscess removal - ANESTHESIA Hx Anesthesia: Yes Hx Anesthesia Reactions: No Hx Malignant Hyperthermia: No Meds Home Medications: Home Medication List Medication Instructions Recorded Confirmed Type Clindamycin [Cleocin] 300 mg PO TID 7 Days #21 cap 01/01/19 Rx Sulfamethoxazole/Trimethoprim 1 tab PO BID #14 tab 01/01/19 Rx [Bactrim DS 800 mg-160 mg] Allergies/Adverse Reactions: Allergies Allergy/AdvReac Type Severity Reaction Status Date / Time No Known Allergies Allergy Verified 01/01/19 07:01 Physical Exam - Constitutional Appears: Non-toxic, No Acute Distress - Head Exam Head Exam: ATRAUMATIC, NORMAL INSPECTION - Eye Exam Eye Exam: EOMI, Normal appearance - ENT Exam ENT Exam: Mucous Membranes Moist - Respiratory Exam Respiratory Exam: NORMAL BREATHING PATTERN. absent: Accessory Muscle Use, Respiratory Distress - Cardiovascular Exam Cardiovascular Exam: REGULAR RHYTHM, +S1, +S2 - GI/Abdominal Exam GI & Abdominal Exam: Normal Bowel Sounds, Soft (obese). absent: Distended, Firm, Guarding, Rebound, Rigid, Tenderness - Extremities Exam Extremities exam: Positive for: normal inspection, pedal pulses present. Negative for: calf tenderness, pedal edema - Neurological Exam Neurological exam: Alert, Oriented x3 - Psychiatric Exam Psychiatric exam: Normal Affect, Normal Mood - Skin Skin Exam: Intact, Warm Additional comments: (+) 5 cm by 3 cm area of fluctuance, erythema and tenderness to the inframammory fold of the right breast Results - Vital Signs Recent Vital Signs: Last Vital Signs Temp 97.9 F 01/01/19 07:01 Pulse 89 01/01/19 09:00 Resp 16 01/01/19 09:00 BP 128/72 01/01/19 09:00 Pulse Ox 98 01/01/19 09:00 - Labs Result Diagrams: 01/01/19 07:50 01/01/19 07:50 Labs: Laboratory Results - last 24 hr 01/01/19 01/01/19 01/01/19 07:50 07:50 07:50 WBC 12.4 H D RBC 4.27 Hgb 11.5 L Hct 35.2 L MCV 82.4 MCH 26.9 MCHC 32.7 RDW 13.1 Plt Count 356 MPV 9.7 Neut % (Auto) 76.7 H Lymph % (Auto) 16.8 L Elbert % (Auto) 5.7 Eos % (Auto) 0.6 L Baso % (Auto) 0.2 Lymph # (Auto) 2.1 Elbert # (Auto) 0.7 H Eos # (Auto) 0.1 Baso # (Auto) 0.02 Absolute Neuts (auto) 9.48 H PT 11.9 INR 1.05 APTT 32.0 Sodium 139 Potassium 3.7 Chloride 103 Carbon Dioxide 27 Anion Gap 12 BUN 9 Creatinine 0.7 Est GFR ( Amer) > 60 Est GFR (Non-Af Amer) > 60 Random Glucose 213 H Calcium 9.0 Total Bilirubin 0.3 AST 23 ALT < 6 L Alkaline Phosphatase 109 Total Protein 8.6 H Albumin 4.0 Globulin 4.6 Albumin/Globulin Ratio 0.9 L Urine Color Urine Appearance Urine pH Ur Specific [place] Urine Protein Urine Glucose (UA) Urine Ketones Urine Blood Urine Nitrate Urine Bilirubin Urine Urobilinogen Ur Leukocyte Esterase Urine RBC Urine WBC Ur Epithelial Cells Amorphous Sediment Urine Bacteria Urine Other Urine HCG, Qual 01/01/19 07:50 WBC RBC Hgb Hct MCV MCH MCHC RDW Plt Count MPV Neut % (Auto) Lymph % (Auto) Elbert % (Auto) Eos % (Auto) Baso % (Auto) Lymph # (Auto) Elbert # (Auto) Eos # (Auto) Baso # (Auto) Absolute Neuts (auto) PT INR APTT Sodium Potassium Chloride Carbon Dioxide Anion Gap BUN Creatinine Est GFR ( Amer) Est GFR (Non-Af Amer) Random Glucose Calcium Total Bilirubin AST ALT Alkaline Phosphatase Total Protein Albumin Globulin Albumin/Globulin Ratio Urine Color Yellow Urine Appearance Clear Urine pH 7.0 Ur Specific [place] 1.020 Urine Protein 30 H Urine Glucose (UA) Negative Urine Ketones Negative Urine Blood Large H Urine Nitrate Negative Urine Bilirubin Negative Urine Urobilinogen 1.0 H Ur Leukocyte Esterase Negative Urine RBC 20 - 25 H Urine WBC 2 - 5 Ur Epithelial Cells Many H Amorphous Sediment Few Urine Bacteria Many Urine Other Fiber Urine HCG, Qual Negative Assessment & Plan - Assessment and Plan (Free Text) Assessment: Patient is a 47F w/ pmhx of HTN, NIDDM, recurrent bilateral breast abscesses requiring I & D presents complaining of 3 day history of pain and induration under right breast Plan: Right breast abscess, s/p bedside I and D Right Breast US: 4.0 x 2.1 x 5.4 cm fluid collection without peripheral incr eased vascularity at 7 to 8:00 position at the site of patient's pain and swelling. The sterility of this collection cannot be determined on the basis of imaging. No sonographic evidence of malignancy. Incision and drainage performed by PGMaureen Bennett. See procedure note Pt will be d/c home with abx to cover for MRSA as well Packing to be removed after 48 hours. Keep area clean and dry. F/u with Dr. Hoyt in office within 1 week. Case discussed with Dr. Lai Watkins PGY1
--- NOTE | 2019-01-01 12:24 | US ---
Date of service: 01/01/2019 HISTORY: Right breast swelling. History of abscess COMPARISON: 07/23/2018 TECHNIQUE: Targeted high-resolution ultrasound of the right breast was performed with real-time linear scanner. FINDINGS: RIGHT BREAST: At 7 to 8:00 position at the site of surgical scar and pain, there is and approximately 4.0 x 2.1 x 5.4 cm fluid collection without peripheral increased vascularity. There is mild edema in the adjacent fibroglandular tissue. There is a solitary mildly enlarged axillary lymph node measuring 1.7 x 1.8 x 0.3 cm. IMPRESSION: 1. Findings are most compatible with a 4.0 x 2.1 x 5.4 cm fluid collection without peripheral increased vascularity at 7 to 8:00 position at the site of patient's pain and swelling. The sterility of this collection cannot be determined on the basis of imaging. Clinical follow-up is advised. 2. No sonographic evidence of malignancy. BIRAD: BIRADS 2 Benign finding Recommendation: Continue annual screening mammography, as per ACR guidelines.
[2019-01-01] MEDS ORDERED: Morphine 4 mg/ml ISec IVP STA (13:17)
--- NOTE | 2019-01-01 14:15 | PCM.PROC ---
Incision and Drainage - Time Time Performed: 14:11 - Time Out Time Out: Site verified, Patient ID confirmed, Sterile procedures obs. - Procedure Procedure-Incision & Drainage: of right breast (inframammary fold) abscess - Consent obtained Consent obtained: Written - Performed by Performed by: Mid-level Provider - Indications Indications: Cutaneous abscess - Contraindications Contraindications: None - Location Location: Right, Breast [email or web address] - Dimensions Dimensions Length cm: 5 Dimensions width cm: 3 - Anesthetic Technique Anesthetic Technique: Local, Intravenous pain meds - Anesthetic Anesthetic: Lidocaine 1% w/epi - Systemic Analgesia Systemic Analgesia: Morphine - Procedure Procedure: Usual prep and drape, cm incision (3), Overlying area fluctuance, # scalpel used (11), Explored for loculations, Irrigated, Packed with sterile gauze - Drained Drained: ml pus (10) - Post-procedure Post procedure: Dressed - Complications Complications: None - Patient tolerated procedure Patient tolerated procedure: Well (48F w/ recurrent right inframammary fold br east abscess. Patient had area of induration and fluctuance w/ fevers at home. Based on H&P patient required I&D. Consent obtained. Risks and benefits explained. Patient verbalized understanding and agreed with procedure. Incision and drainage performed at bedside. Patient tolerated procedure without complications. Patient discharged home with antibiotics and instructions. Patient to follow up with Dr. Hoyt w/in 5 days of discharge.)
[2019-01-01 15:44] VITALS: BP 135/78; PULSE 87; RESP 16; O2SAT 99
== END 2019-01-01 15:42 | disposition home or self-care (01) ==
LOC: ED 06:45
DX: N61.1 Abscess of the breast and nipple (principal); E11.65 Type 2 diabetes mellitus with hyperglycemia; I10 Essential (primary) hypertension
CPT/HCPCS: 10060; 76642; 80053; 81001; 84703; 85025; 85610; 85730; 96374; 96375; 99283; J1885; J2270